=== PATIENT | female | born 1945 | race Caucasian/White ===

== ENCOUNTER 2016-11-03 07:58 | Outpatient (CLI) | payer MEDICARE, OTHER | END 2016-11-03 07:59 | disposition home or self-care (01) | DX: L23.2 Allergic contact dermatitis due to cosmetics (principal) ==

== ENCOUNTER 2017-01-12 11:10 | Outpatient (CLI) | payer MEDICARE, OTHER | END 2017-01-12 11:11 | disposition home or self-care (01) | DX: E11.9 Type 2 diabetes mellitus without complications (principal) ==

== ENCOUNTER 2017-02-27 13:15 | Outpatient (CLI) | payer MEDICARE, OTHER | END 2017-02-27 13:16 | disposition home or self-care (01) | LOC: DI 13:15 | PROVIDERS: ATTEND Internal Medicine | DX: I10 Essential (primary) hypertension (principal); R01.1 Cardiac murmur, unspecified; I35.0 Nonrheumatic aortic (valve) stenosis | CPT/HCPCS: 93306 ==

== ENCOUNTER 2017-03-30 15:02 | Emergency (ER) | payer MEDICARE, OTHER ==
[2017-03-30 15:11] VITALS: BP 153/67
--- NOTE | 2017-03-30 15:54 | XRAY Preliminary Report ---
Exam: XR Ankle 3 View LT IMPRESSION: 1. No evidence of ankle fracture or dislocation. 2. There is bony irregularity of the dorsal mid foot on lateral view. This is probably artifact secon shahriar to degenerative disease and/or overlapping bone. If there is focal tenderness at this location, CT could be used for further evaluation. [facility] SITE ID: [id number]
--- NOTE | 2017-03-30 15:56 | XRAY Report ---
EXAM: LEFT ANKLE RADIOGRAPHY EXAM DATE: 03/30/2017 03:38 PM. CLINICAL HISTORY: Injury, pain swelling. COMPARISON: None. TECHNIQUE: 3 views. FINDINGS: Bones: No fracture or focal bony lesion. Bony irregularity of the dorsum of the foot likely represen ts overlapping bone. Joints: No evidence of dislocation. Soft Tissues: No unexpected soft tissue findings. IMPRESSION: 1. No evidence of ankle fracture or dislocation. 2. There is bony irregularity of the dorsal mid foot on lateral view. This is probably artifact secon shahriar to degenerative disease and/or overlapping bone. If there is focal tenderness at this location, CT could be used for further evaluation. [facility] Referring Provider Line: [phone] SITE ID: [id number]
--- NOTE | 2017-03-30 16:07 | ED Physician Documentation ---
PD HPI LOWER EXT INJURY - Stated complaint Stated Complaint: LT LE PX - Chief complaint Chief Complaint: Ext Problem - History obtained from History obtained from: Patient - History of Present Illness PD HPI LOW EXT INJURY LOCATION: Left Type of injury: Fall Where injury occurred: Home Timing - onset: Today Timing - duration: Hours (2) Timing - details: Abrupt onset Improved by: Rest Worsened by: Moving, Palpating Associated symptoms: No: Weakness, Numbness, Tingling - Additional information Additional information: states stepped off a log and into a hole today. [place] a pop and developed ankle/ foot pain. Unable to bear weight and brought in for eval. Has not taken any medications. 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 : None HEENT: None Psych: None Musculoskeletal: Osteoarthritis Derm: Eczema - Past Surgical History Past Surgical History: Yes General: Appendectomy - Present Medications Home Medications: Ambulatory Orders Medication Instructions Recorded Confirmed Apremilast [Otezla] 30 mg ORAL BID 03/30/16 03/30/17 Aspirin [Aspir-Low] 81 mg ORAL DAILY 03/30/16 03/30/16 Hydrochlorothiazide 25 mg ORAL DAILY 03/30/16 03/30/17 Insulin Glargine,Hum.rec.anlog 25 units SUBQ QPM 03/30/16 03/30/17 [Lantus] Insulin Glargine,Hum.rec.anlog 28 units SUBQ DAILY 03/30/16 03/30/17 [Lantus] Insulin Lispro [Humalog] 0 units SUBQ TID 03/30/16 03/30/17 Lisinopril 20 mg ORAL BID 03/30/16 03/30/17 Omeprazole 40 mg ORAL BID 03/30/16 03/30/17 Oxybutynin [Ditropan] 5 mg ORAL DAILY 03/30/16 03/30/17 Rosuvastatin Calcium [Crestor] 1.5 mg ORAL DAILY 03/30/16 03/30/17 amLODIPine [Norvasc] 2.5 mg ORAL BID 03/30/16 03/30/17 - Allergies Allergies/Adverse Reactions: Allergies Allergy/AdvReac Type Severity Reaction Status Date / Time Latex, Natural Rubber Allergy Unknown Verified 03/30/17 15:11 nickel Allergy Rash Verified 03/30/17 15:55 Penicillins Allergy Hives Verified 03/30/16 17:21 - Social History Does the pt smoke?: No Smoking Status: Never smoker Does the pt drink ETOH?: Yes Does the pt have substance abuse?: No - Immunizations Immunizations are current?: Yes - POLST Patient has POLST: No PD ED PE NORMAL - Vitals Vital signs reviewed: Yes - General General: Alert and oriented X 3, No acute distress - Derm Derm: Warm and dry - Extremities Extremities: Other (L ankle - TTP B malleolus. Also tender over the dorsum of the foot. NVI. STS) - Neuro Neuro: Alert and oriented X 3 - Psych Psych: Normal mood, Normal affect Results - Vitals Vitals: Vital Signs - 24 hr 03/30/17 15:07 Temperature 36.6 C Heart Rate 76 Respiratory 20 Rate Blood Pressure 153/67 H O2 Saturation 97 Oxygen O2 Source Room air - Rads (name of study) L ankle xray Radiology: Prelim report reviewed, EMP read contemporaneously, See rad report ( No evidence of ankle fracture or dislocation. There is bony irregularity of the dorsal mid foot on lateral view. This is probably artifact secondary to degenerative disease and/or overlapping bone. If there is focal tenderness at this location, CT could be used for further evaluation. ) L foot xray Radiology: Prelim report reviewed, EMP read contemporaneously, See rad report ( No fracture identified. ) PD MEDICAL DECISION MAKING - ED course Complexity details: reviewed results, re-evaluated patient, considered differential, d/w patient, d/w family ED course: Patient is a 71-year-old female who presents to the emergency department with what appears to be a left ankle and foot sprain. Does have a slight irregularity on x-ray, but no tenderness at this point on exam. Placed in a walker boot for comfort. Will have her follow-up with her doctor for further evaluation and care. Pain well controlled. Patient counseled regarding signs and symptoms for which I believe and urgent re-evaluation would be necessary. Patient with good understanding of and agreement to plan and is comfortable going home at this time. Counseled regarding missed fractures secondary to acute swelling and may need repeat xrays if not improving. This document was made in part using voice recognition software. While efforts are made to proofread this document, sound alike and grammatical errors may occur. Departure - Departure Disposition: 01 Home, Self Care Clinical Impression: Sprain of foot, left Qualifiers: Encounter type: initial encounter Qualified Code(s): S93.602A - Unspecified sprain of left foot, initial encounter Sprained ankle Qualifiers: Encounter type: initial encounter Involved ligament of ankle: unspecified ligament Laterality: left Qualified Code(s): S93.402A - Sprain of unspecified ligament of left ankle, initial encounter Condition: Good Instructions: ED Sprain Foot, ED Sprain Ankle Follow-Up: Tino Hollis MD [Primary Care Provider] - Within 1 week Comments: Wear the boot as needed for comfort at home. Return if you worsen Discharge Date/Time: 03/30/17 17:30
[2017-03-30] MEDS ORDERED: IBUPROFEN 800 MG TABLET PO STA (16:17)
--- NOTE | 2017-03-30 17:08 | XRAY Preliminary Report ---
Exam: XR Foot 3 View LT IMPRESSION: No fracture identified. [facility] SITE ID: [id number]
--- NOTE | 2017-03-30 17:11 | XRAY Report ---
EXAM: LEFT FOOT RADIOGRAPHY EXAM DATE: 03/30/2017 04:37 PM. CLINICAL HISTORY: Foot pain s/p fall in hole today. COMPARISON: None. TECHNIQUE: 3 views. FINDINGS: Bones: Normal. No fractures or bone lesions. Joints: Normal. No subluxations. Soft Tissues: Diffuse soft tissue swelling. IMPRESSION: No fracture identified. [facility] Referring Provider Line: [phone] SITE ID: [id number]
== END 2017-03-30 17:30 | disposition home or self-care (01) ==
LOC: ED 15:02
DX: S93.602A Unspecified sprain of left foot, initial encounter (principal); S93.402A Sprain of unspecified ligament of left ankle, initial encounter; W17.2XXA Fall into hole, initial encounter; Y92.009 Unspecified place in unspecified non-institutional (private) residence as the place of occurrence of the external cause; I10 Essential (primary) hypertension; E11.8 Type 2 diabetes mellitus with unspecified complications; Z79.4 Long term (current) use of insulin; Z86.73 Personal history of transient ischemic attack (TIA), and cerebral infarction without residual deficits; Z79.82 Long term (current) use of aspirin
CPT/HCPCS: 99283

== ENCOUNTER 2017-03-31 10:23 | Outpatient (CLI) | payer MEDICARE, OTHER ==
[2017-03-31] MEDS ORDERED: NITROGLYCERIN SL 0.4 MG TABLET SL ONE (13:20)
[2017-03-31 16:15] VITALS: BP 164/70
--- NOTE | 2017-04-01 08:04 | CARDIAC PROCEDURE NOTE ---
DATE OF SERVICE: 03/31/2017 00:00:00 PROCEDURE: Lexiscan infusion for sestamibi myocardial imaging. INDICATIONS: A 71-year-old female with multiple cardiac risk factors and worrisome neck discomfort. PROCEDURE: The patient received Lexiscan and sestamibi per Nuclear Medicine protocol. Her pre-proce dure EKG was essentially unremarkable. With the infusion, she had a significant bump in her heart ra te from the mid 60s to the 110 range. She then developed gradual onset of neck tightness reminiscent of her presenting symptom. Associated with this were diffuse ST-segment changes, most prominently i n the inferolateral leads, but there were also some downsloping ST's in V4 and V5. The patient chuy nued to have a fair amount of discomfort. Eventually one sublingual nitroglycerin 0.4 was provided a nd within 2 or 3 minutes her symptoms resolved. She was hypertensive during most of this time, dropp ing her pressure only after the nitroglycerin. IMPRESSION: Worrisome symptoms and EKG at the time of Lexiscan infusion. See Nuclear Medicine repor t for details. JOB #: [id number] EXT JOB #:[id number]
--- NOTE | 2017-04-01 15:16 | Nuclear Medicine Report ---
EXAM: SINGLE-ISOTOPE PHARMACOLOGICAL STRESS TEST WITH REGADENOSON. SINGLE-ISOTOPE AND TWO-DAY REST/STRESS M YOCARDIAL PERFUSION SCANS WITH TOMOGRAPHIC IMAGING, QUANTITATIVE ANALYSIS, WALL MOTION ANALYSIS AND C ALCULATION OF EJECTION FRACTION. EXAM DATE: 03/31/2017 11:47 AM. CLINICAL HISTORY: Neck pain. COMPARISON: None. TECHNIQUE: A pharmacological stress was performed with the infusion of 0.4 mg regadenoson per protocol. Accordin g to protocol, 10.7 mCi of Tc-99m sestamibi was injected for stress myocardial perfusion scan. Motion correction was applied when appropriate. The following day after the intravenous administration of 43.8 mCi of Tc-99m sestamibi, a rest myocar dial perfusion scan was done with tomography. Motion correction was applied when appropriate. Gated tomographic images were obtained for wall motion analysis and computation of left ventricular e jection fraction. FINDINGS: Patient experienced neck tightness and chest pain with ST segment changes. Patient received nitroglyc minerva which resolved the symptoms. Stress perfusion images demonstrate normal distribution of radiotracer activity without fixed or reve rsible ischemia. No other convincing perfusion abnormalities. No convincing evidence of transient ischemic dilatation. Wall motion analysis demonstrates normal motion. The left ventricular end-diastolic volume is 88 cc. The left ventricular end-systolic volume is 30 cc . The left ventricular ejection fraction is calculated to be 65%. IMPRESSION: 1. No scintigraphic findings to indicate myocardial ischemia. Negative for infarct. 2. Left ventricular ejection fraction of 65%. 3. Normal segmental and global wall motion. 4. Normal left ventricular cavity size, no change with stress. [facility] Referring Provider Line: [phone] SITE ID: [id number]
== END 2017-03-31 10:24 | disposition home or self-care (01) ==
LOC: DI 10:23
PROVIDERS: ATTEND Internal Medicine
DX: M54.2 Cervicalgia (principal); R07.9 Chest pain, unspecified
CPT/HCPCS: 78452; 93017; A9270; A9500

== ENCOUNTER 2017-04-09 14:01 | Outpatient (CLI) | payer MEDICARE, OTHER ==
--- NOTE | 2017-04-09 16:54 | MRI Report ---
EXAM: LEFT FOOT MRI WITHOUT CONTRAST EXAM DATE: 04/09/2017 03:33 PM. CLINICAL HISTORY: Left foot pain and edema. Previous injury after stepping into a hole 10 days ago. COMPARISON: Left foot radiography from 03/30/2017. TECHNIQUE: Multiplanar, multisequence T1-weighted and fluid-sensitive sequences of the foot without c ontrast. Other: None. FINDINGS: Bones and articular cartilage: Metallic magnetic susceptibility artifacts are present within the cent ral to posterior aspect of the calcaneus. No macroscopic metallic fragments are seen on the correspon ding radiographs. Small plantar calcaneal enthesophyte. Small osteophytes at the dorsal aspect of the talonavicular joint. Slight bony hypertrophic changes at the anterior process of the calcaneus. Ther e is a nondisplaced acute or subacute appearing fracture of the anterolateral aspect of the distal ti bial plafond. This is at the attachment site of the anterior tibiofibular ligament. There is a acute or subacute nondisplaced intra-articular fracture at the dorsal distal aspect of the medial cuneiform bone. There is also a nondisplaced fracture of the plantar aspect of the medial cuneiform. There is a bone contusion at the plantar lateral aspect of the first metatarsal base. Mild first metatarsal ph alangeal joint osteoarthritis. No dislocation. Ligaments: The visualized intertarsal, intermetatarsal, and tarsometatarsal ligaments are intact. Thi s includes the Lisfranc ligament. The visualized collateral ligaments are intact. The tibiofibular, t alofibular, calcaneofibular, deltoid, and spring ligaments are intact. Tendons: The extensor, flexor, peroneal, and Achilles tendons are intact. Musculature: Mild edema within the muscles adjacent to the medial cuneiform fracture. Other: No effusions. The visualized portion of the tarsal tunnel is unremarkable. Mild first and thir d intermetatarsal bursitis. Subcutaneous edema and mild swelling at the dorsal and plantar medial asp ects of the foot. IMPRESSION: 1. Nondisplaced acute or subacute fractures at the anterolateral aspect of the distal tibial plafond, dorsal distal aspect of the medial cuneiform, and plantar distal aspect of the medial cuneiform. Bon e contusion at the plantar lateral aspect of the first metatarsal base. 2. Mild edema within the muscles adjacent to the medial cuneiform fractures with minimal represent st rain or contusion. 3. No joint dislocation. 4. No evidence of ligament injury. 5. Subcutaneous edema and mild swelling at the dorsal and plantar medial aspects of the foot. [facility] MUSCULOSKELETAL RADIOLOGY SECTION Referring Provider Line: [phone] SITE ID: [id number]
== END 2017-04-09 14:02 | disposition home or self-care (01) ==
LOC: DI 14:01
PROVIDERS: ATTEND Podiatrist
DX: S82.875A Nondisplaced pilon fracture of left tibia, initial encounter for closed fracture (principal); S92.245A Nondisplaced fracture of medial cuneiform of left foot, initial encounter for closed fracture; R60.0 Localized edema

== ENCOUNTER 2017-05-21 11:36 | Outpatient (CLI) | payer MEDICARE, OTHER ==
--- NOTE | 2017-05-21 17:01 | XRAY Report ---
THREE-VIEW LEFT FOOT: 05/21/2017 CLINICAL INDICATION: Fracture followup. COMPARISON: MRI 04/09/2017, plain film 03/30/2017. FINDINGS: AP, lateral, oblique, views of the left foot demonstrate mild sclerosis in the medial cune iform, at the sites of fracture identified on MRI. No displacement is seen. Osteoarthritis is noted . Plantar calcaneal spurring is present. IMPRESSION: SCLEROSIS IN THE DISTAL MEDIAL CUNEIFORM, AT THE SITES OF FRACTURE INDICATED ON MRI. NO SIGNIFICANT DISPLACEMENT. JOB #: [id number] EXT JOB #:[id number]
--- NOTE | 2017-05-21 17:22 | XRAY Report ---
THREE-VIEW LEFT ANKLE: 05/21/2017 CLINICAL INDICATION: Followup fractures. COMPARISON: MRI 04/09/2017, plain film 03/30/2017. FINDINGS: AP, lateral, oblique views of the left ankle demonstrate faint sclerosis in the lateral di stal tibia and the distal shaft of the fibula, compatible with nondisplaced fractures with healing. Plantar and posterior calcaneal spurring is present. No new fracture is seen. IMPRESSION: HEALING NONDISPLACED ANKLE FRACTURES. JOB #: [id number] EXT JOB #:[id number]
== END 2017-05-21 11:37 | disposition home or self-care (01) ==
LOC: DI 11:36
PROVIDERS: ATTEND Podiatrist
DX: S82.892D Other fracture of left lower leg, subsequent encounter for closed fracture with routine healing (principal)

== ENCOUNTER 2017-09-15 08:00 | Outpatient (CLI) | payer MEDICARE, OTHER ==
[2017-09-15 20:20] LABS: PT - PROTHROMBIN TIME 48.8 secs (9.9-12.6)
[2017-09-15 20:56] LABS: INR 4.6 (0.8-1.2)
== END 2017-09-15 08:01 | disposition home or self-care (01) ==
LOC: LAB.R 08:00 → LAB.F 08:01
PROVIDERS: ATTEND Internal Medicine
DX: Z79.01 Long term (current) use of anticoagulants (principal)
CPT/HCPCS: 36415; 85610

== ENCOUNTER 2017-10-06 10:35 | Outpatient (CLI) | payer MEDICARE, OTHER ==
[2017-10-06 17:39] LABS: PT - PROTHROMBIN TIME 48.6 secs (9.9-12.6)
[2017-10-06 18:24] LABS: INR 4.6 (0.8-1.2)
== END 2017-10-06 10:36 | disposition home or self-care (01) ==
LOC: LAB.R 10:35
PROVIDERS: ATTEND Internal Medicine
DX: R79.1 Abnormal coagulation profile (principal)
CPT/HCPCS: 85610

== ENCOUNTER 2017-10-27 08:44 | Outpatient (CLI) | payer MEDICARE, OTHER | END 2017-10-27 08:45 | disposition home or self-care (01) | LOC: LAB.F 08:44 | PROVIDERS: ATTEND Internal Medicine | DX: I48.91 Unspecified atrial fibrillation (principal) | CPT/HCPCS: 85610 ==

== ENCOUNTER 2017-10-29 13:07 | Outpatient (CLI) | payer MEDICARE, OTHER | END 2017-10-29 13:08 | disposition home or self-care (01) | LOC: NS 13:07 | PROVIDERS: ATTEND Internal Medicine | DX: Z71.3 Dietary counseling and surveillance (principal); E11.8 Type 2 diabetes mellitus with unspecified complications; Z79.4 Long term (current) use of insulin; Z68.37 Body mass index [BMI] 37.0-37.9, adult | CPT/HCPCS: 97802 ==

== ENCOUNTER 2017-11-10 11:01 | Outpatient (CLI) | payer MEDICARE, OTHER | END 2017-11-10 11:02 | disposition home or self-care (01) | LOC: NS 11:01 | PROVIDERS: ATTEND Internal Medicine | DX: Z71.3 Dietary counseling and surveillance (principal); E11.8 Type 2 diabetes mellitus with unspecified complications; Z79.4 Long term (current) use of insulin; Z68.37 Body mass index [BMI] 37.0-37.9, adult; I48.91 Unspecified atrial fibrillation | CPT/HCPCS: 85610; 97803 ==

== ENCOUNTER 2017-11-10 12:39 | Outpatient (CLI) | payer MEDICARE, OTHER | END 2017-11-10 12:40 | disposition home or self-care (01) | LOC: LAB.F 12:39 | PROVIDERS: ATTEND Internal Medicine | DX: I48.91 Unspecified atrial fibrillation (principal) | CPT/HCPCS: 85610 ==

== ENCOUNTER 2017-11-24 09:54 | Outpatient (CLI) | payer MEDICARE, OTHER | END 2017-11-24 09:55 | disposition home or self-care (01) | LOC: LAB.F 09:54 | PROVIDERS: ATTEND Internal Medicine | DX: I48.91 Unspecified atrial fibrillation (principal) | CPT/HCPCS: 85610 ==

== ENCOUNTER 2017-12-08 09:06 | Outpatient (CLI) | payer MEDICARE, OTHER ==
[2017-12-08 17:17] LABS: BASOPHILS # (AUTO) 0.1 10^3/uL (0.0-0.1); BASOPHILS % (AUTO) 1.1 %; EOSINOPHILS # (AUTO) 0.2 10^3/uL (0.0-0.7); EOSINOPHILS % (AUTO) 1.8 %; HGB - HEMOGLOBIN 11.4 g/dL (12.0-16.0); LYMPHOCYTES # (AUTO) 1.3 10^3/uL (1.5-3.5); LYMPHOCYTES % (AUTO) 15.4 %; MEAN CORPUSCULAR HEMOGLOBIN 27.8 pg (27.0-31.0); MEAN CORPUSCULAR HGB CONC 32.1 g/dL (32.0-36.0); MEAN CORPUSCULAR VOLUME 86.5 fL (81.0-99.0); MEAN PLATELET VOLUME 9.3 fL (7.9-10.8); MONOCYTES # (AUTO) 0.7 10^3/uL (0.0-1.0); MONOCYTES % (AUTO) 8.2 %; NEUTROPHILS # (AUTO) 6.3 10^3/uL (1.5-6.6); NEUTROPHILS % (AUTO) 73.5 %; PLT - PLATELET COUNT 365 10^3/uL (130-450); RED BLOOD COUNT 4.09 10^6/uL (4.20-5.40); RED CELL DISTRIBUTION WIDTH 15.9 % (12.0-15.0); WHITE BLOOD COUNT 8.5 x10^3/uL (4.8-10.8)
[2017-12-08 17:30] LABS: PT - PROTHROMBIN TIME 22.3 secs (9.9-12.6)
[2017-12-08 17:35] LABS: ALBUMIN 3.7 g/dL (3.2-5.5); ALBUMIN/GLOBULIN RATIO 0.9 (1.0-2.2); BILIRUBIN,TOTAL 0.9 mg/dL (0.2-1.0); CALCIUM 9.6 mg/dL (8.5-10.3); CREATININE 1.2 mg/dL (0.4-1.0); TOTAL PROTEIN 7.6 g/dL (6.7-8.2)
[2017-12-08 18:00] LABS: HB2 TOTAL 12.3 g/dL; HEMOGLOBIN A1C 0.84 g/dL; HEMOGLOBIN A1C % 8.4 % (4.6-6.2)
== END 2017-12-08 09:07 | disposition home or self-care (01) ==
LOC: LAB.F 09:06
PROVIDERS: ATTEND Internal Medicine
DX: I48.91 Unspecified atrial fibrillation (principal); E11.9 Type 2 diabetes mellitus without complications
CPT/HCPCS: 36415; 80053; 83036; 85025; 85610

== ENCOUNTER 2017-12-11 12:20 | Outpatient (CLI) | payer MEDICARE, OTHER ==
--- NOTE | 2017-12-11 13:33 | XRAY Report ---
TWO VIEW CHEST: 12/11/2017 CLINICAL INDICATION: Cough, shortness of breath. COMPARISON: 03/23/2011. FINDINGS: Frontal and lateral views of the chest demonstrate a normal cardiac silhouette. A left subclavian dual chamber pacemaker is in place, new from previous. There is a moderate left and trace right effusion present, with associated basilar airspace disease. No pneumothorax. IMPRESSION: MODERATE LEFT AND TRACE RIGHT PLEURAL EFFUSIONS. NEW PACEMAKER. TD: 12/11/2017 13:32
== END 2017-12-11 12:21 | disposition home or self-care (01) ==
LOC: DI 12:20
PROVIDERS: ATTEND Internal Medicine
DX: J90 Pleural effusion, not elsewhere classified (principal); I50.9 Heart failure, unspecified; I35.0 Nonrheumatic aortic (valve) stenosis; Z95.0 Presence of cardiac pacemaker
CPT/HCPCS: 36415; 71046; 83880

== ENCOUNTER 2017-12-22 10:20 | Outpatient (CLI) | payer MEDICARE, OTHER | END 2017-12-22 10:21 | disposition home or self-care (01) | LOC: LAB.F 10:20 | PROVIDERS: ATTEND Internal Medicine | DX: I48.91 Unspecified atrial fibrillation (principal) | CPT/HCPCS: 85610 ==

== ENCOUNTER 2018-01-08 09:30 | Outpatient (CLI) | payer MEDICARE, OTHER ==
--- NOTE | 2018-01-08 19:41 | XRAY Report ---
MULTIPLE VIEW CHEST: 01/08/2018 CLINICAL INDICATION: Pleural effusion. TECHNIQUE: As requested, frontal, lateral, and left lateral decubitus views of the chest were obtained. COMPARISON: 12/11/2017 FINDINGS: The cardiac silhouette remains within normal limits. Left subclavian pacemaker is in stable position. Right effusion has resolved. The moderate left effusion appears unchanged. On the lateral decubitus image, the majority of the effusion is not freely layering. No pneumothorax is seen. IMPRESSION 1. STABLE APPEARANCE OF LEFT EFFUSION AND BASILAR AIRSPACE DISEASE. THE MAJORITY OF THE LEFT PLEURAL EFFUSION IS NOT FREELY LAYERING ON THE DECUBITUS VIEW. 2. RESOLUTION OF PREVIOUSLY NOTED SMALL RIGHT EFFUSION. TD: 01/08/2018 19:40
== END 2018-01-08 09:31 | disposition home or self-care (01) ==
LOC: DI 09:30
PROVIDERS: ATTEND Internal Medicine
DX: J90 Pleural effusion, not elsewhere classified (principal); Z95.0 Presence of cardiac pacemaker
CPT/HCPCS: 71046

== ENCOUNTER 2018-01-11 11:09 | Outpatient (CLI) | payer MEDICARE, OTHER | END 2018-01-11 11:10 | disposition home or self-care (01) | LOC: LAB.F 11:09 | PROVIDERS: ATTEND Internal Medicine | DX: I48.91 Unspecified atrial fibrillation (principal) | CPT/HCPCS: 85610 ==

== ENCOUNTER 2018-01-19 07:46 | Outpatient (CLI) | payer MEDICARE, OTHER | END 2018-01-19 07:47 | disposition home or self-care (01) | LOC: LAB.F 07:46 | PROVIDERS: ATTEND Internal Medicine | DX: I48.91 Unspecified atrial fibrillation (principal) | CPT/HCPCS: 85610 ==

== ENCOUNTER 2018-01-21 11:39 | Outpatient (CLI) | payer MEDICARE, OTHER ==
[2018-01-21 12:05] LABS: CALCIUM 9.4 mg/dL (8.5-10.3); CREATININE 1.1 mg/dL (0.4-1.0)
== END 2018-01-21 11:40 | disposition home or self-care (01) ==
LOC: LAB 11:39
PROVIDERS: ATTEND Internal Medicine Cardiovascular Disease
DX: Z79.899 Other long term (current) drug therapy (principal)
CPT/HCPCS: 36415; 80048

== ENCOUNTER 2018-02-02 08:50 | Outpatient (CLI) | payer MEDICARE, OTHER ==
[2018-02-02] MEDS ORDERED: BUFFERED LIDOCAINE 10 ML SYRINGE IU ONE (09:56)
[2018-02-02 10:52] VITALS: BP 157/56
[2018-02-02 10:54] LABS: CC,BF RBC 481950 /mm^3
--- NOTE | 2018-02-02 11:19 | XRAY Report ---
INSPIRATORY AND EXPIRATORY VIEWS OF THE CHEST: 02/02/2018 CLINICAL INDICATION: Status post left ultrasound-guided thoracentesis. COMPARISON: 01/08/2018. FINDINGS: Frontal inspiratory and expiratory views of the chest demonstrate no evidence of postprocedure pneumothorax. Left pleural effusion has decreased significantly. Pacemaker is stable. The right lung remains clear. IMPRESSION: NO EVIDENCE OF POSTPROCEDURE PNEUMOTHORAX. TD: 02/02/2018 10:59
--- NOTE | 2018-02-02 11:20 | Ultrasound Report ---
ULTRASOUND-GUIDED LEFT THORACENTESIS: 02/02/2018 CLINICAL INDICATION: Pleural effusion. TECHNIQUE/FINDINGS: Following obtaining informed consent, a suitable site in the patient's left posterior thorax was selected with ultrasound. The skin was prepped and draped in the usual sterile fashion. The skin and soft tissues were anesthetized with lidocaine. A Leqc-R-Nbviftme catheter was inserted into the left pleural space, and approximately 1150 mL of bloody fluid was removed. The patient tolerated the procedure well. No immediate complications. Fluid was submitted to the lab for further evaluation. IMPRESSION: SUCCESSFUL ULTRASOUND-GUIDED LEFT THORACENTESIS, YIELDING APPROXIMATELY 1150 ML OF FLUID. TD: 02/02/2018 11:00
[2018-02-02 11:28] LABS: BF COLOR BLOODY; BF SOURCE PLEURAL; LYMPHOCYTES %,BODY FLUID 90; MACROPHAGES %,BODY FLUID 3 %; MONOCYTES %,BODY FLUID 2 %
== END 2018-02-02 08:51 | disposition home or self-care (01) ==
LOC: DI 08:50
PROVIDERS: ATTEND Internal Medicine
DX: J90 Pleural effusion, not elsewhere classified (principal)
CPT/HCPCS: 32555; 71046; 81599; 82945; 83615; 84157; 87070; 87205; 88108; 88305; 89051

== ENCOUNTER 2018-02-09 08:38 | Outpatient (CLI) | payer MEDICARE, OTHER | END 2018-02-09 08:39 | disposition home or self-care (01) | LOC: LAB.F 08:38 | PROVIDERS: ATTEND Internal Medicine | DX: I48.91 Unspecified atrial fibrillation (principal) | CPT/HCPCS: 85610 ==

== ENCOUNTER 2018-02-16 08:03 | Outpatient (CLI) | payer MEDICARE, OTHER ==
[2018-02-16 11:26] LABS: HB2 TOTAL 12.3 g/dL; HEMOGLOBIN A1C 0.77 g/dL; HEMOGLOBIN A1C % 7.9 % (4.6-6.2)
== END 2018-02-16 08:04 | disposition home or self-care (01) ==
LOC: LAB.F 08:03
PROVIDERS: ATTEND Internal Medicine
DX: E11.9 Type 2 diabetes mellitus without complications (principal); I48.91 Unspecified atrial fibrillation
CPT/HCPCS: 36415; 83036; 85610

== ENCOUNTER 2018-03-09 09:31 | Outpatient (CLI) | payer MEDICARE, OTHER | END 2018-03-09 09:32 | disposition home or self-care (01) | LOC: LAB.F 09:31 | PROVIDERS: ATTEND Internal Medicine | DX: I48.91 Unspecified atrial fibrillation (principal) | CPT/HCPCS: 85610 ==

== ENCOUNTER 2018-03-29 11:57 | Outpatient (CLI) | payer MEDICARE, OTHER | END 2018-03-29 11:58 | disposition home or self-care (01) | LOC: LAB 11:57 | PROVIDERS: ATTEND Internal Medicine | DX: I48.91 Unspecified atrial fibrillation (principal) | CPT/HCPCS: 85610 ==

== ENCOUNTER 2018-05-11 15:58 | Outpatient (CLI) | payer MEDICARE, OTHER ==
--- NOTE | 2018-05-11 17:28 | XRAY Report ---
Procedure Date: 05/11/2018 Accession Number: [id number] / [id number] Procedure: XR - Chest 2 View X-Ray CPT Code: 12006 FULL RESULT: EXAM: CHEST RADIOGRAPHY. EXAM DATE: 05/11/2018 05:06 PM. CLINICAL HISTORY: Coronary artery bypass graft post. COMPARISON: 02/02/2018. TECHNIQUE: 2 views. FINDINGS: Lungs/Pleura: Mild blunting of the left costophrenic angle. No pneumothorax. Mediastinum: No cardiac enlargement. Dual-lead cardiac device is present. Atheromatous plaques are noted in the thoracic aorta. Other: None. IMPRESSION: 1. Dual-lead cardiac device with atheromatous disease. 2. Decreased size of the now small left pleural effusion. No pneumothorax. No acute pulmonary process. [facility] ADDENDUM: 05/12/18 14:04 hrs. Comment: No sternal fracture identified. Patient is osteopenic. If the symptoms remain clinically concerning, recommend CT evaluation.
== END 2018-05-11 15:59 | disposition home or self-care (01) ==
LOC: DI 15:58
PROVIDERS: ATTEND Physician Assistant Medical
DX: J90 Pleural effusion, not elsewhere classified (principal); R07.81 Pleurodynia; Z95.1 Presence of aortocoronary bypass graft
CPT/HCPCS: 71046

== ENCOUNTER 2018-05-12 09:44 | Outpatient (CLI) | payer MEDICARE, OTHER ==
[2018-05-12 17:24] LABS: BASOPHILS # (AUTO) 0.1 10^3/uL (0.0-0.1); BASOPHILS % (AUTO) 0.9 %; EOSINOPHILS # (AUTO) 0.1 10^3/uL (0.0-0.7); EOSINOPHILS % (AUTO) 1.5 %; HGB - HEMOGLOBIN 11.6 g/dL (12.0-16.0); LYMPHOCYTES # (AUTO) 1.2 10^3/uL (1.5-3.5); LYMPHOCYTES % (AUTO) 17.1 %; MEAN CORPUSCULAR HEMOGLOBIN 29.9 pg (27.0-31.0); MEAN CORPUSCULAR VOLUME 90.6 fL (81.0-99.0); MEAN PLATELET VOLUME 9.6 fL (7.9-10.8); MONOCYTES # (AUTO) 0.7 10^3/uL (0.0-1.0); MONOCYTES % (AUTO) 10.3 %; NEUTROPHILS # (AUTO) 4.9 10^3/uL (1.5-6.6); NEUTROPHILS % (AUTO) 70.2 %; PLT - PLATELET COUNT 277 10^3/uL (130-450); RED BLOOD COUNT 3.87 10^6/uL (4.20-5.40); RED CELL DISTRIBUTION WIDTH 14.5 % (12.0-15.0)
[2018-05-12 18:09] LABS: ALBUMIN 3.6 g/dL (3.2-5.5); ALBUMIN/GLOBULIN RATIO 1.1 (1.0-2.2); ALKALINE PHOSPHATASE 73 IU/L (42-121); ALT ALANINE AMINOTRANSFERASE 19 IU/L (10-60); AST ASPARTATE AMINOTRANSFERASE 20 IU/L (10-42); BILIRUBIN,TOTAL 0.9 mg/dL (0.2-1.0); BUN - BLOOD UREA NITROGEN 26 mg/dL (6-20); CALCIUM 9.1 mg/dL (8.5-10.3); CARBON DIOXIDE - CO2 27 mmol/L (21-32); CHLORIDE 98 mmol/L (101-111); CREATININE 1.2 mg/dL (0.4-1.0); GFR - MDRD 44 (>89); GLUCOSE 254 mg/dL (70-100); SODIUM 135 mmol/L (135-145); TOTAL PROTEIN 6.9 g/dL (6.7-8.2)
[2018-05-12 18:11] LABS: CRP - C-REACTIVE PROTEIN < 1.0 mg/dL (0-1.0)
== END 2018-05-12 09:45 | disposition home or self-care (01) ==
LOC: LAB.F 09:44
PROVIDERS: ATTEND Physician Assistant Medical
DX: R60.0 Localized edema (principal); Z95.5 Presence of coronary angioplasty implant and graft
CPT/HCPCS: 36415; 80053; 85025; 85651; 86140

== ENCOUNTER 2018-05-12 15:22 | Outpatient (CLI) | payer MEDICARE, OTHER ==
--- NOTE | 2018-05-12 17:11 | CT Report ---
Procedure Date: 05/12/2018 Accession Number: [id number] / [id number] Procedure: CT - Chest W/O CPT Code: FULL RESULT: EXAM: CT CHEST EXAM DATE: 05/12/2018 03:35 PM. CLINICAL HISTORY: EDEMA,LOCALIZED, NOS,CABG POST. Clicking sensation midline inferior sternum COMPARISONS: None. TECHNIQUE: Routine helical CT imaging was performed through the chest. IV contrast: None. Reconstructions: Coronal and sagittal. In accordance with CT protocol optimization, one or more of the following dose reduction techniques were utilized for this exam: automated exposure control, adjustment of mA and/or KV based on patient size, or use of iterative reconstructive technique. FINDINGS: Lungs/Pleura: No nodules, bronchial thickening, consolidation, or edema. Pulmonary vasculature is normal. No pericardial effusion. Small amount left pleural thickening/effusion; no right pleural effusion. No pneumothorax. Mediastinum: Post CABG changes. Left subclavian transvenous pacemaker. No adenopathy or masses. The aorta is normal in size. Bones and soft tissues: Status post sternotomy; no sternal wires are seen. There is a slight separation of the sternal halves, transverse measuring maximally approximately 5 mm and with posterior displacement on the left half by approximately 4.5 mm. Immediately anterior to the xiphoid process slightly to the left of midline there is a 4 mm clip in the subcutaneous fat, series 3 image 40. No subcutaneous fluid collection is seen. There is a small amount of fat scarring extending from the xiphoid process to the skin surface. Included upper Abdomen: Status post cholecystectomy. Small left kidney. Other: Enlarged right thyroid lobe containing coarse calcification and possible 1.7 cm nodule series 3 image 7. IMPRESSION: 1. Status post sternotomy and CABG. No sternal wires or abnormal subcutaneous fluid collection seen. There is one 4 mm surgical clip immediately anterior to the xiphoid process Which could potentially explain the clinically apparent "click" with motion. 2. Residual small amount left pleural thickening/scarring/fluid. 3. Abnormal right lobe of the thyroid. Suggest correlation with ultrasound. 4. Other incidental findings as above. Results called to Kasey TORRES 05/12/2018 at 17:08
== END 2018-05-12 15:23 | disposition home or self-care (01) ==
LOC: DI 15:22
PROVIDERS: ATTEND Physician Assistant Medical
DX: R07.89 Other chest pain (principal); R60.0 Localized edema; Z95.5 Presence of coronary angioplasty implant and graft
CPT/HCPCS: 36415; 71250; 80053; 85025; 85651; 86140

== ENCOUNTER 2018-05-18 15:05 | Outpatient (CLI) | payer MEDICARE, OTHER ==
--- NOTE | 2018-05-19 05:10 | Ultrasound Report ---
Reason: THYROID NODULE, ABNORMAL CHEST CT SCAN Procedure Date: 05/18/2018 Accession Number: [id number] / [id number] Procedure: US - Head or Neck Soft Tissue CPT Code: FULL RESULT: EXAM: THYROID ULTRASOUND EXAM DATE: 05/18/2018 04:14 PM. CLINICAL HISTORY: Possible thyroid nodule on chest CT COMPARISON: Chest CT 05/12/2018. TECHNIQUE: Real time sonographic imaging of the thyroid was performed by the casting machine adjuster. Multiple hospital sales representative static images were saved for review. FINDINGS: THYROID GLAND: Right Lobe: 4.6 x 2.1 x 1.9 cm, volume 10 cc. Normal background echotexture. Right Lobe Nodules: Hypoechoic 1.5 x 1.0 x 0.7 cm nodule in the midportion; hypoechoic 0.9 x 0.7 x 1.0 cm nodule just inferior to the larger. Left Lobe: 3.4 x 1.7 x 1.3 cm, volume 3 cc. Normal background echotexture. Left Lobe Nodules: Hypoechoic 1.1 x 1.0 x 0.9 nodule in the lower pole. Isthmus: 0.3 cm AP. Isthmic Nodules: None. LYMPH NODES: No adenopathy demonstrated in the central or lateral compartment. OTHER: None. IMPRESSION: Small hypoechoic nodules. No fine-needle aspiration is recommended by CT criteria. Management recommendations are based on 2015 [place] [employer] Management Guidelines for Adult Patients with Thyroid Nodules and Differentiated Thyroid Cancer. [facility]
== END 2018-05-18 15:06 | disposition home or self-care (01) ==
LOC: DI 15:05
PROVIDERS: ATTEND Physician Assistant Medical
DX: E04.2 Nontoxic multinodular goiter (principal)
CPT/HCPCS: 76536

== ENCOUNTER 2018-09-03 07:53 | Outpatient (CLI) | payer MEDICARE, OTHER ==
[2018-09-03 11:39] LABS: HB2 TOTAL 12.7 g/dL; HEMOGLOBIN A1C 0.98 g/dL; HEMOGLOBIN A1C % 9.2 % (4.6-6.2)
== END 2018-09-03 07:54 | disposition home or self-care (01) ==
LOC: LAB.F 07:53
PROVIDERS: ATTEND Internal Medicine
DX: I48.91 Unspecified atrial fibrillation (principal); E11.9 Type 2 diabetes mellitus without complications
CPT/HCPCS: 36415; 83036; 85610

== ENCOUNTER 2018-10-27 10:04 | Outpatient (CLI) | payer MEDICARE, OTHER | END 2018-10-27 10:05 | disposition home or self-care (01) | LOC: LAB.F 10:04 | PROVIDERS: ATTEND Internal Medicine | DX: I48.91 Unspecified atrial fibrillation (principal) | CPT/HCPCS: 85610 ==

== ENCOUNTER 2018-11-11 11:30 | Outpatient (CLI) | payer MEDICARE, OTHER | END 2018-11-11 11:31 | disposition home or self-care (01) | LOC: LAB.F 11:30 | PROVIDERS: ATTEND Internal Medicine | DX: I48.91 Unspecified atrial fibrillation (principal) | CPT/HCPCS: 85610 ==

== ENCOUNTER 2018-12-23 10:24 | Outpatient (CLI) | payer MEDICARE, OTHER | END 2018-12-23 10:25 | disposition home or self-care (01) | LOC: LAB.F 10:24 | PROVIDERS: ATTEND Registered Nurse | DX: Z51.81 Encounter for therapeutic drug level monitoring (principal); Z79.01 Long term (current) use of anticoagulants | CPT/HCPCS: 85610 ==

== ENCOUNTER 2019-01-11 14:22 | Outpatient (CLI) | payer MEDICARE, OTHER | END 2019-01-11 14:23 | disposition home or self-care (01) | LOC: LAB.F 14:22 | PROVIDERS: ATTEND Registered Nurse | DX: Z79.01 Long term (current) use of anticoagulants (principal) | CPT/HCPCS: 85610 ==

== ENCOUNTER 2019-01-18 10:48 | Outpatient (CLI) | payer MEDICARE, OTHER | END 2019-01-18 10:49 | disposition home or self-care (01) | LOC: LAB.F 10:48 | PROVIDERS: ATTEND Registered Nurse | DX: Z79.01 Long term (current) use of anticoagulants (principal) | CPT/HCPCS: 85610 ==

== ENCOUNTER 2019-02-08 14:33 | Outpatient (CLI) | payer MEDICARE, OTHER | END 2019-02-08 14:34 | disposition home or self-care (01) | LOC: LAB.F 14:33 | PROVIDERS: ATTEND Registered Nurse | DX: Z51.81 Encounter for therapeutic drug level monitoring (principal); Z79.01 Long term (current) use of anticoagulants | CPT/HCPCS: 85610 ==

== ENCOUNTER 2019-03-03 10:35 | Outpatient (CLI) | payer MEDICARE, OTHER | END 2019-03-03 10:36 | disposition home or self-care (01) | LOC: LAB.F 10:35 | PROVIDERS: ATTEND Registered Nurse | DX: Z79.01 Long term (current) use of anticoagulants (principal) | CPT/HCPCS: 85610 ==

== ENCOUNTER 2019-03-07 13:01 | Outpatient (CLI) | payer MEDICARE, OTHER | END 2019-03-07 13:02 | disposition home or self-care (01) | LOC: LAB.F 13:01 | PROVIDERS: ATTEND Registered Nurse | DX: Z51.81 Encounter for therapeutic drug level monitoring (principal); Z79.01 Long term (current) use of anticoagulants | CPT/HCPCS: 85610 ==

== ENCOUNTER 2019-03-17 15:55 | Outpatient (CLI) | payer MEDICARE, OTHER | END 2019-03-17 16:30 | disposition home or self-care (01) | LOC: LAB.F 15:55 | PROVIDERS: ATTEND Registered Nurse | DX: Z79.01 Long term (current) use of anticoagulants (principal) | CPT/HCPCS: 85610 ==

== ENCOUNTER 2019-03-21 09:25 | Outpatient (CLI) | payer MEDICARE, OTHER | END 2019-03-21 09:26 | disposition home or self-care (01) | LOC: LAB.S 09:25 | PROVIDERS: ATTEND Registered Nurse | DX: Z79.01 Long term (current) use of anticoagulants (principal) | CPT/HCPCS: 85610 ==

== ENCOUNTER 2019-03-28 14:13 | Outpatient (CLI) | payer MEDICARE, OTHER | END 2019-03-28 14:14 | disposition home or self-care (01) | LOC: LAB.S 14:13 | PROVIDERS: ATTEND Registered Nurse | DX: Z79.01 Long term (current) use of anticoagulants (principal) | CPT/HCPCS: 85610 ==

== ENCOUNTER 2019-04-18 11:57 | Outpatient (CLI) | payer MEDICARE, OTHER | END 2019-04-18 11:58 | disposition home or self-care (01) | LOC: LAB.S 11:57 | PROVIDERS: ATTEND Registered Nurse | DX: Z79.01 Long term (current) use of anticoagulants (principal) | CPT/HCPCS: 85610 ==

== ENCOUNTER 2019-05-26 14:41 | Outpatient (CLI) | payer MEDICARE, OTHER | END 2019-05-26 14:42 | disposition home or self-care (01) | LOC: LAB.S 14:41 | PROVIDERS: ATTEND Registered Nurse | DX: Z79.01 Long term (current) use of anticoagulants (principal) | CPT/HCPCS: 85610 ==

== ENCOUNTER 2019-06-10 14:20 | Outpatient (CLI) | payer MEDICARE, OTHER | END 2019-06-10 14:21 | disposition home or self-care (01) | LOC: LAB.S 14:20 | PROVIDERS: ATTEND Registered Nurse | DX: Z79.01 Long term (current) use of anticoagulants (principal) | CPT/HCPCS: 85610 ==

== ENCOUNTER 2019-06-28 14:48 | Outpatient (CLI) | payer MEDICARE, OTHER | END 2019-06-28 14:49 | disposition home or self-care (01) | LOC: LAB.S 14:48 | PROVIDERS: ATTEND Registered Nurse | DX: Z51.81 Encounter for therapeutic drug level monitoring (principal); Z79.01 Long term (current) use of anticoagulants | CPT/HCPCS: 85610 ==

== ENCOUNTER 2019-10-04 11:43 | Outpatient (CLI) | payer MEDICARE, OTHER ==
--- NOTE | 2019-10-04 15:44 | XRAY Report ---
Reason: COUGH Procedure Date: 10/04/2019 Accession Number: [id number] / [id number] Procedure: XRS - Chest 2 View X-Ray CPT Code: 37733 Final Report FULL RESULT: EXAM: CHEST RADIOGRAPHY EXAM DATE: 10/04/2019 11:50 AM. CLINICAL HISTORY: COUGH. COMPARISON: CHEST 2 VIEW 05/11/2018 4:59 PM. TECHNIQUE: 2 views. FINDINGS: Lungs/Pleura: No focal opacities evident. No peribronchial cuffing or interstitial abnormality. No pleural effusion. No pneumothorax. Normal volumes. Mediastinum: Heart and mediastinal contours are unremarkable. Mild aortic calcification. Dual-chamber cardiac pacemaker electrodes, as before. Other: Moderate generalized thoracic kyphosis. Mild bilateral acromioclavicular joint osteoarthritis. IMPRESSION: Negative chest. Lungs are clear. [facility]
== END 2019-10-04 11:44 | disposition home or self-care (01) ==
LOC: DI.S 11:43
PROVIDERS: ATTEND Registered Nurse
DX: R05 Cough (principal)
CPT/HCPCS: 71046

== ENCOUNTER 2019-12-12 08:16 | Outpatient (CLI) | payer MEDICARE, OTHER | END 2019-12-12 08:17 | disposition home or self-care (01) | LOC: LAB.S 08:16 | PROVIDERS: ATTEND Registered Nurse | DX: Z79.01 Long term (current) use of anticoagulants (principal) | CPT/HCPCS: 85610 ==

== ENCOUNTER 2020-08-07 08:37 | Outpatient (CLI) | payer MEDICARE, OTHER ==
[2020-08-07 14:41] LABS: HEMOGLOBIN A1c% 8.3 % (4.27-6.07)
[2020-08-07 14:48] LABS: BUN - BLOOD UREA NITROGEN 19 mg/dL (6-20); CALCIUM 9.3 mg/dL (8.5-10.3); CARBON DIOXIDE - CO2 27 mmol/L (21-32); CHLORIDE 102 mmol/L (101-111); CHOL/HDL RATIO 3.2 (<4.4); CHOLESTEROL 142 mg/dL; GLUCOSE 170 mg/dL (70-100); HDL CHOLESTEROL 45 mg/dL; LDL CHOLESTEROL,CALCULATED 80 mg/dL; LDL/HDL RATIO 1.8 (<4.4); SODIUM 138 mmol/L (135-145); VLDL CHOLESTEROL 17 mg/dL
== END 2020-08-07 08:38 | disposition home or self-care (01) ==
LOC: LAB.S 08:37
PROVIDERS: ATTEND Registered Nurse
DX: E11.22 Type 2 diabetes mellitus with diabetic chronic kidney disease (principal); N18.9 Chronic kidney disease, unspecified
CPT/HCPCS: 36415; 80048; 80061; 83036; 83721

== ENCOUNTER 2020-10-26 08:39 | Outpatient (CLI) | payer MEDICARE, OTHER ==
[2020-10-26 16:17] LABS: BUN - BLOOD UREA NITROGEN 27 mg/dL (6-20); CALCIUM 9.2 mg/dL (8.5-10.3); CARBON DIOXIDE - CO2 27 mmol/L (21-32); CHLORIDE 101 mmol/L (101-111); CHOL/HDL RATIO 3.1 (<4.4); CHOLESTEROL 153 mg/dL; GLUCOSE 189 mg/dL (70-100); HDL CHOLESTEROL 49 mg/dL; LDL CHOLESTEROL,CALCULATED 80 mg/dL; LDL/HDL RATIO 1.6 (<4.4); VLDL CHOLESTEROL 24 mg/dL
[2020-10-26 16:21] LABS: CREATININE,URINE 131.3 mg/dL; MICROALBUM/CREATININE RATIO,UR 71.6 ug/mg (<30.0); MICROALBUMIN,URINE 9.4 mg/dL (0-300.0)
== END 2020-10-26 08:40 | disposition home or self-care (01) ==
LOC: LAB.S 08:39
PROVIDERS: ATTEND Registered Nurse
DX: E11.22 Type 2 diabetes mellitus with diabetic chronic kidney disease (principal)
CPT/HCPCS: 36415; 80048; 80061; 82043; 82570; 83036; 83721

== ENCOUNTER 2021-01-23 14:13 | Outpatient (CLI) | payer MEDICARE, OTHER | END 2021-01-23 14:14 | disposition critical access hospital (66) | LOC: EMS 14:13 | DX: R53.1 Weakness (principal) | CPT/HCPCS: A0425; A0427 ==

== ENCOUNTER 2021-01-23 14:45 | Emergency (ER) | payer MEDICARE, OTHER ==
[2021-01-23 14:51] VITALS: BP 163/67
--- NOTE | 2021-01-23 15:32 | ED Physician Documentation ---
History of Present Illness - Stated complaint Stated Complaint: HYPOGLYCEMIC - Chief complaint Chief Complaint: General - History obtained from History obtained from: Patient, EMS (Patient is a 75-year-old female who was brought in by EMS today) - History of Present Illness Pain level max: 0 Pain level now: 0 - Additonal information Additional information: Patient is a 75-year-old female who was brought in by EMS today For hypoglycemia. Blood sugar is 29. She was given glucose with EMS. Feels much better now. She states that she took her insulin today, but did not eat any breakfast or lunch. She states currently she feels well. 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 : Renal insuffiency HEENT: None Psych: None Musculoskeletal: Osteoarthritis, Osteoporosis, Osteopenia, Other Derm: Eczema, Psoriasis - Past Surgical History Past Surgical History: Yes General: Cholecystectomy, Appendectomy, Other Cardiovascular: CABG, Coronary stent, Pacemaker HEENT: Cataracts - Present Medications Home Medications: Ambulatory Orders Medication Instructions Recorded Confirmed Rosuvastatin Calcium [Crestor] 40 mg ORAL QPM 03/30/16 03/10/19 Furosemide 40 mg PO BID 11/18/17 03/10/19 Insulin Glargine [Lantus Solostar] 14 unit SUBQ BID 11/18/17 03/10/19 Labetalol HCl 200 mg PO BID 11/18/17 03/10/19 Aspirin [Aspirin EC] 81 mg PO DAILY 03/10/19 03/10/19 Insulin Aspart [NovoLOG] 0 - 11 units SQ TID 03/10/19 03/10/19 Losartan Potassium 25 mg PO DAILY 03/10/19 03/10/19 Omeprazole 20 mg PO DAILY 03/10/19 03/10/19 Oxybutynin Chloride 5 mg PO DAILY 03/10/19 03/10/19 Potassium Chloride 20 meq PO TID 03/10/19 03/10/19 Rivaroxaban [Xarelto] 20 mg PO DAILY PM 03/10/19 03/10/19 - Allergies Allergies/Adverse Reactions: Allergies Allergy/AdvReac Type Severity Reaction Status Date / Time amoxicillin Allergy Unknown Verified 11/18/17 10:02 atropine [From Lomotil] Allergy Unknown Verified 11/18/17 10:02 Cephalosporins Allergy Unknown Verified 11/18/17 10:02 diphenoxylate [From Lomotil] Allergy Unknown Verified 11/18/17 10:02 iodine Allergy Unknown Verified 11/18/17 10:02 Latex, Natural Rubber Allergy Unknown Verified 03/30/17 15:11 nickel Allergy Rash Verified 03/30/17 15:55 Penicillins Allergy Hives Verified 03/30/16 17:21 Tetanus Vaccines and Toxoid Allergy Unknown Verified 11/18/17 10:02 metformin AdvReac Unknown Verified 11/18/17 10:02 minocycline AdvReac Unknown Verified 11/18/17 10:02 oxycodone AdvReac Unknown Verified 11/18/17 10:02 [id number] Reductase AdvReac Unknown Verified 11/18/17 10:02 Inhibitor - Social History Does the pt smoke?: No Smoking Status: Never smoker Does the pt drink ETOH?: Yes Does the pt have substance abuse?: No - Immunizations Immunizations are current?: Yes - POLST Patient has POLST: No PD ED PE NORMAL - Vitals Vital signs reviewed: Yes - General General: Alert and oriented X 3, No acute distress, Well developed/nourished - HEENT HEENT: PERRL, Moist mucous membranes - Neck Neck: Supple, no meningeal sign - Cardiac Cardiac: RRR, Strong equal pulses - Respiratory Respiratory: No respiratory distress, Clear bilaterally - Abdomen Abdomen: Soft, Non tender, Non distended - Derm Derm: Warm and dry - Extremities Extremities: No edema, No calf tenderness / cord - Neuro Neuro: Alert and oriented X 3, psych coordinator 2-12 intact, No motor deficit, No sensory deficit, Normal speech Eye Opening: Spontaneous Motor: Obeys Commands Verbal: Oriented GCS Score: 15 - Psych Psych: Normal mood, Normal affect Results - Vitals Vitals: Vital Signs - 24 hr 01/23/21 14:48 Temperature 36.2 C L Heart Rate 70 Respiratory 19 Rate Blood Pressure 163/67 H O2 Saturation 100 Oxygen O2 Source Room air PD MEDICAL DECISION MAKING - ED course Complexity details: reviewed results, re-evaluated patient, considered differential, d/w patient ED course: Patient ate and drink in the emergency department. No recurrent hypoglycemia. She feels better and would like to go home. Informed her not to take her insulin until she is ready to eat. Patient will check her blood sugars at home today as well. Patient counseled regarding signs and symptoms for which I believe and urgent re-evaluation would be necessary. Patient with good understanding of and agreement to plan and is comfortable going home at this time This document was made in part using voice recognition software. While efforts are made to proofread this document, sound alike and grammatical errors may occur. Departure - Departure Disposition: 01 Home, Self Care Clinical Impression: Hypoglycemia Condition: Good Instructions: ED Diabetes Hypoglycemia Insulin React Follow-Up: Mary Almodovar ARNP [Primary Care Provider] - Comments: Please make sure you are eating at home regularly especially after taking your insulin. Follow-up with your doctor for further care. You should check your blood sugar periodically throughout the day today. Discharge Date/Time: 01/23/21 16:38
== END 2021-01-23 16:38 | disposition home or self-care (01) ==
LOC: EDSEX → EDUNIT# → ED 14:45
DX: E11.649 Type 2 diabetes mellitus with hypoglycemia without coma (principal); Z79.4 Long term (current) use of insulin; I10 Essential (primary) hypertension; I48.91 Unspecified atrial fibrillation; Z79.01 Long term (current) use of anticoagulants
CPT/HCPCS: 99283; 99284

== ENCOUNTER 2021-04-24 12:10 | Outpatient (CLI) | payer MEDICARE, OTHER | END 2021-04-24 12:11 | disposition critical access hospital (66) | LOC: EMS 12:10 | DX: R50.9 Fever, unspecified (principal); R11.2 Nausea with vomiting, unspecified; R19.7 Diarrhea, unspecified; R52 Pain, unspecified | CPT/HCPCS: A0425; A0429 ==

== ENCOUNTER 2021-04-24 12:45 | Inpatient (IN) | payer MEDICARE, OTHER ==
[2021-04-24] MEDS ORDERED: SODIUM CHLORIDE 0.9% 1,000 ML IV STA (13:13)
[2021-04-24] MEDS ORDERED: ACETAMINOPHEN 325 MG TABLET PO STA (13:13)
--- NOTE | 2021-04-24 13:17 | ED Physician Documentation ---
PD HPI DYSPNEA - Stated complaint Stated Complaint: BODY ACHES N/V/D - Chief complaint Chief Complaint: Resp - History obtained from History obtained from: Patient, EMS - Additional information Additional information: 75-year-old woman with history of COPD, coronary bypass, type 2 diabetes brought in by ambulance for an acute illness. She is a vague historian but it sounds like she just been sick for a couple of days with cough, body aches. Also developed a right leg cellulitis today. She has been fully immunized against Covid but has been in contact with her niece who recently had Covid. She does have a cough. 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 : Renal insuffiency HEENT: None Psych: None Musculoskeletal: Osteoarthritis, Osteoporosis, Osteopenia, Other Derm: Eczema, Psoriasis - Past Surgical History Past Surgical History: Yes General: Cholecystectomy, Appendectomy, Other Cardiovascular: CABG, Coronary stent, Pacemaker HEENT: Cataracts - Present Medications Home Medications: Ambulatory Orders Medication Instructions Recorded Confirmed Rosuvastatin Calcium [Crestor] 40 mg ORAL QPM 03/30/16 03/10/19 Furosemide 40 mg PO BID 11/18/17 03/10/19 Insulin Glargine [Lantus Solostar] 14 unit SUBQ BID 11/18/17 03/10/19 Labetalol HCl 200 mg PO BID 11/18/17 03/10/19 Aspirin [Aspirin EC] 81 mg PO DAILY 03/10/19 03/10/19 Insulin Aspart [NovoLOG] 0 - 11 units SQ TID 03/10/19 03/10/19 Losartan Potassium 25 mg PO DAILY 03/10/19 03/10/19 Omeprazole 20 mg PO DAILY 03/10/19 03/10/19 Oxybutynin Chloride 5 mg PO DAILY 06/20/19 06/20/19 Potassium Chloride 20 meq PO TID 03/10/19 03/10/19 Rivaroxaban [Xarelto] 20 mg PO DAILY PM 03/10/19 03/10/19 - Allergies Allergies/Adverse Reactions: Allergies Allergy/AdvReac Type Severity Reaction Status Date / Time amoxicillin Allergy Unknown Verified 04/24/21 12:57 atropine [From Lomotil] Allergy Unknown Verified 04/24/21 12:57 Cephalosporins Allergy Unknown Verified 04/24/21 12:57 diphenoxylate [From Lomotil] Allergy Unknown Verified 04/24/21 12:57 iodine Allergy Unknown Verified 04/24/21 12:57 Latex, Natural Rubber Allergy Unknown Verified 04/24/21 12:57 nickel Allergy Rash Verified 04/24/21 12:57 Penicillins Allergy Hives Verified 04/24/21 12:57 Tetanus Vaccines and Toxoid Allergy Unknown Verified 04/24/21 12:57 metformin AdvReac Unknown Verified 04/24/21 12:57 minocycline AdvReac Unknown Verified 04/24/21 12:57 oxycodone AdvReac Unknown Verified 04/24/21 12:57 [id number]-[id number]-Isa Reductase AdvReac Unknown Verified 04/24/21 12:57 Inhibitor - Social History Does the pt smoke?: No Smoking Status: Never smoker Does the pt drink ETOH?: Yes Does the pt have substance abuse?: No - Immunizations Immunizations are current?: Yes - POLST Patient has POLST: No PD ED PE NORMAL - Vitals Vital signs reviewed: Yes - General General: No acute distress, Other (She is slightly confused, restless and encephalopathic, she knows the date but is quick to nod off and seems confused by recent historical events.) - HEENT HEENT: PERRL, EOMI - Neck Neck: Supple, no meningeal sign, No bony TTP - Cardiac Cardiac: Other (3 out of 6 machinelike systolic murmur which she says is previous existing.) - Respiratory Respiratory: Other (Diminished throughout and tachypneic) - Abdomen Abdomen: Normal bowel sounds, Soft, Non tender - Extremities Extremities: Other (Cellulitis of the right ankle from the ankle up to the mid to upper calf) - Neuro Neuro: Alert and oriented X 3 Eye Opening: To Voice Motor: Obeys Commands Verbal: Confused GCS Score: 13 Results - Vitals Vitals: Vital Signs - 24 hr 04/24/21 04/24/21 04/24/21 12:57 13:24 14:00 Temperature 38.9 C H Heart Rate 76 90 109 H Respiratory 22 21 30 H Rate Blood Pressure 170/84 H 180/68 H O2 Saturation 90 L 94 95 04/24/21 04/24/21 04/24/21 14:45 15:00 15:30 Temperature 37.6 C Heart Rate 98 102 H 124 H Respiratory 21 27 H 22 Rate Blood Pressure 183/54 H O2 Saturation 94 95 96 04/24/21 04/24/21 04/24/21 16:00 16:09 16:30 Temperature 37.6 C Heart Rate 119 H 112 H 85 Respiratory 27 H 27 H 27 H Rate Blood Pressure 109/71 130/65 O2 Saturation 96 96 97 04/24/21 17:00 Temperature 36.9 C Heart Rate 95 Respiratory 30 H Rate Blood Pressure 150/71 H O2 Saturation 97 Oxygen O2 Source Nasal cannula Oxygen Flow Rate 2 - EKG (time done) 1404 Rate: Rate (enter#) (117) Rhythm: Atrial fibrillation QRS: LVH Ischemia: Non specific changes. No: ST elevation c/w ischemia, ST depression Computer interpretation: Agree with computer - Labs Labs: Laboratory Tests 04/24/21 04/24/21 04/24/21 13:22 13:22 13:22 WBC 15.9 H RBC 3.96 L Hgb 12.5 Hct 38.9 MCV 98.2 MCH 31.6 H MCHC 32.1 RDW 13.1 Plt Count 206 MPV 10.9 H Neut # (Auto) 14.8 H Lymph # (Auto) 0.4 L [place] # (Auto) 0.5 Eos # (Auto) 0.1 Baso # (Auto) 0.1 Absolute Nucleated RBC 0.00 Nucleated RBC % 0.0 ESR Sodium 137 Potassium 3.1 L Chloride 99 L Carbon Dioxide 27 Anion Gap 11.0 BUN 19 Creatinine 0.9 Estimated GFR (MDRD) 61 L Glucose 277 H Lactic Acid Calcium 9.0 Total Bilirubin 1.0 AST 22 ALT 23 Alkaline Phosphatase 48 Troponin I High Sens C-Reactive Protein B-Natriuretic Peptide Total Protein 7.1 Albumin 3.9 Globulin 3.2 Albumin/Globulin Ratio 1.2 Nasal Adenovirus (PCR) NOT DETECTED Nasal B. parapertussis DNA (PCR) NOT DETECTED Nasal Coronavir 229E PCR NOT DETECTED Nasal Coronavir HKU1 PCR NOT DETECTED Nasal Coronavir NL63 PCR NOT DETECTED Nasal Coronavir OC43 PCR NOT DETECTED Nasal Enterovir/Rhinovir PCR NOT DETECTED Nasal Influenza B PCR NOT DETECTED Nasal Influenza A PCR NOT DETECTED Nasal Parainfluen 1 PCR NOT DETECTED Nasal Parainfluen 2 PCR NOT DETECTED Nasal Parainfluen 3 PCR NOT DETECTED Nasal Parainfluen 4 PCR NOT DETECTED Nasal RSV (PCR) NOT DETECTED Nasal B.pertussis DNA PCR NOT DETECTED Nasal C.pneumoniae (PCR) NOT DETECTED Ye Human Metapneumo PCR NOT DETECTED Nasal M.pneumoniae (PCR) NOT DETECTED Nasal SARS-CoV-2 (PCR) NOT DETECTED 04/24/21 04/24/21 04/24/21 13:22 13:22 13:22 WBC RBC Hgb Hct MCV MCH MCHC RDW Plt Count MPV Neut # (Auto) Lymph # (Auto) [place] # (Auto) Eos # (Auto) Baso # (Auto) Absolute Nucleated RBC Nucleated RBC % ESR 1 Sodium Potassium Chloride Carbon Dioxide Anion Gap BUN Creatinine Estimated GFR (MDRD) Glucose Lactic Acid Calcium Total Bilirubin AST ALT Alkaline Phosphatase Troponin I High Sens 72.4 H* C-Reactive Protein < 1.0 B-Natriuretic Peptide Total Protein Albumin Globulin Albumin/Globulin Ratio Nasal Adenovirus (PCR) Nasal B. parapertussis DNA (PCR) Nasal Coronavir 229E PCR Nasal Coronavir HKU1 PCR Nasal Coronavir NL63 PCR Nasal Coronavir OC43 PCR Nasal Enterovir/Rhinovir PCR Nasal Influenza B PCR Nasal Influenza A PCR Nasal Parainfluen 1 PCR Nasal Parainfluen 2 PCR Nasal Parainfluen 3 PCR Nasal Parainfluen 4 PCR Nasal RSV (PCR) Nasal B.pertussis DNA PCR Nasal C.pneumoniae (PCR) Ye Human Metapneumo PCR Nasal M.pneumoniae (PCR) Nasal SARS-CoV-2 (PCR) 04/24/21 04/24/21 04/24/21 13:31 15:06 15:32 WBC RBC Hgb Hct MCV MCH MCHC RDW Plt Count MPV Neut # (Auto) Lymph # (Auto) [place] # (Auto) Eos # (Auto) Baso # (Auto) Absolute Nucleated RBC Nucleated RBC % ESR Sodium Potassium Chloride Carbon Dioxide Anion Gap BUN Creatinine Estimated GFR (MDRD) Glucose Lactic Acid 2.2 Calcium Total Bilirubin AST ALT Alkaline Phosphatase Troponin I High Sens 264.8 H* C-Reactive Protein B-Natriuretic Peptide 1139 H Total Protein Albumin Globulin Albumin/Globulin Ratio Nasal Adenovirus (PCR) Nasal B. parapertussis DNA (PCR) Nasal Coronavir 229E PCR Nasal Coronavir HKU1 PCR Nasal Coronavir NL63 PCR Nasal Coronavir OC43 PCR Nasal Enterovir/Rhinovir PCR Nasal Influenza B PCR Nasal Influenza A PCR Nasal Parainfluen 1 PCR Nasal Parainfluen 2 PCR Nasal Parainfluen 3 PCR Nasal Parainfluen 4 PCR Nasal RSV (PCR) Nasal B.pertussis DNA PCR Nasal C.pneumoniae (PCR) Ye Human Metapneumo PCR Nasal M.pneumoniae (PCR) Nasal SARS-CoV-2 (PCR) 04/24/21 16:49 WBC RBC Hgb Hct MCV MCH MCHC RDW Plt Count MPV Neut # (Auto) Lymph # (Auto) [place] # (Auto) Eos # (Auto) Baso # (Auto) Absolute Nucleated RBC Nucleated RBC % ESR Sodium Potassium Chloride Carbon Dioxide Anion Gap BUN Creatinine Estimated GFR (MDRD) Glucose Lactic Acid 2.6 H Calcium Total Bilirubin AST ALT Alkaline Phosphatase Troponin I High Sens C-Reactive Protein B-Natriuretic Peptide Total Protein Albumin Globulin Albumin/Globulin Ratio Nasal Adenovirus (PCR) Nasal B. parapertussis DNA (PCR) Nasal Coronavir 229E PCR Nasal Coronavir HKU1 PCR Nasal Coronavir NL63 PCR Nasal Coronavir OC43 PCR Nasal Enterovir/Rhinovir PCR Nasal Influenza B PCR Nasal Influenza A PCR Nasal Parainfluen 1 PCR Nasal Parainfluen 2 PCR Nasal Parainfluen 3 PCR Nasal Parainfluen 4 PCR Nasal RSV (PCR) Nasal B.pertussis DNA PCR Nasal C.pneumoniae (PCR) Ye Human Metapneumo PCR Nasal M.pneumoniae (PCR) Nasal SARS-CoV-2 (PCR) PD MEDICAL DECISION MAKING - ED course ED course: 75-year-old woman presents febrile, borderline pulse oximetry, abnormal lung sounds and a right lower extremity cellulitis. She is septic with tachycardia and fever. She also has a white count. Right lower extremity cellulitis treated with vancomycin and Cipro after discussion with the hospitalist noting extensive antibiotic allergies. She has a rising troponin here and was in A. fib with RVR which was managed with divided doses of diltiazem. She also has some element of CHF. Hospitalist request a consult with cardiology and at 5:29 PM did discuss the case with Dr. Sp hitchcock Soldier who feels there is no need for transfer. - Sepsis Event Sepsis Onset Date: 04/24/21 Sepsis Onset Time: 13:24 Current Stage of Sepsis: Sepsis Initial Hypotension: Not hypotensive Possible source of Sepsis: Skin/soft tissue (vs covid or other pulm source) Mental/Cognitive Status: Lethargic Reason for not giving 30ml/kg crystalloid fluids: Not in septic shock Capillary refill: Less than 2 seconds Peripheral Pulse Strength: 2+ Slightly Diminished Peripheral Pulse Location: Radial Departure - Departure Disposition: [facility] DC/Xfer Clinical Impression: Atrial fibrillation with RVR Sepsis Qualifiers: Sepsis type: sepsis due to unspecified organism Sepsis acute organ dysfunction status: without acute organ dysfunction Qualified Code(s): A41.9 - Sepsis, unspecified organism Cellulitis Qualifiers: Site of cellulitis: extremity Site of cellulitis of extremity: lower extremity Laterality: right Qualified Code(s): L03.115 - Cellulitis of right lower limb CHF (congestive heart failure) Qualifiers: Heart failure type: unspecified Heart failure chronicity: acute on chronic Qualified Code(s): I50.9 - Heart failure, unspecified Condition: Serious
[2021-04-24] MEDS ORDERED: VANCOMYCIN INJ 1.5 GM in SODIUM CHLORIDE 0.9% 500 ML IV STA (13:19)
[2021-04-24] MEDS ORDERED: VANCOMYCIN INJ 2 GM, VANCOMYCIN INJ 250 MG in SODIUM CHLORIDE 0.9% 500 ML IV STA (13:31)
[2021-04-24 13:39] LABS: BASOPHILS # (AUTO) 0.1 10^3/uL (0.0-0.1); BASOPHILS % (AUTO) 0.3 %; EOSINOPHILS # (AUTO) 0.1 10^3/uL (0.0-0.7); EOSINOPHILS % (AUTO) 0.3 %; HCT - HEMATOCRIT 38.9 % (37.0-47.0); HGB - HEMOGLOBIN 12.5 g/dL (12.0-16.0); LYMPHOCYTES # (AUTO) 0.4 10^3/uL (1.5-3.5); LYMPHOCYTES % (AUTO) 2.4 %; MEAN CORPUSCULAR HEMOGLOBIN 31.6 pg (27.0-31.0); MEAN CORPUSCULAR HGB CONC 32.1 g/dL (32.0-36.0); MEAN CORPUSCULAR VOLUME 98.2 fL (81.0-99.0); MEAN PLATELET VOLUME 10.9 fL (7.9-10.8); MONOCYTES # (AUTO) 0.5 10^3/uL (0.0-1.0); NEUTROPHILS # (AUTO) 14.8 10^3/uL (1.5-6.6); NEUTROPHILS % (AUTO) 92.9 %; PLT - PLATELET COUNT 206 10^3/uL (130-450); RED BLOOD COUNT 3.96 10^6/uL (4.20-5.40); RED CELL DISTRIBUTION WIDTH 13.1 % (12.0-15.0); WHITE BLOOD COUNT 15.9 x10^3/uL (4.8-10.8)
[2021-04-24 13:47] LABS: LACTIC ACID, VENOUS 2.2 mmol/L (0.5-2.2)
[2021-04-24 13:48] LABS: ALBUMIN 3.9 g/dL (3.2-5.5); ALBUMIN/GLOBULIN RATIO 1.2 (1.0-2.2); CREATININE 0.9 mg/dL (0.4-1.0); POTASSIUM 3.1 mmol/L (3.5-5.0); TOTAL PROTEIN 7.1 g/dL (6.7-8.2)
--- NOTE | 2021-04-24 13:59 | XRAY Report ---
PROCEDURE: Chest 1 View X-Ray INDICATIONS: dyspnea cough TECHNIQUE: One view of the chest was acquired. COMPARISON: 10/04/2019 FINDINGS: Surgical changes and devices: Dual-lead cardiac pacer Lungs and pleura: No pleural effusions or pneumothorax. Diffuse bilateral patchy groundglass opaci ties Mediastinum: Mediastinal contours appear normal. Heart size is normal. Bones and chest wall: No suspicious bony lesions. Overlying soft tissues appear unremarkable. IMPRESSION: Diffuse patchy groundglass opacities suggestive of pulmonary edema. Recommend clinical and laboratory correlation to exclude underlying atypical/viral infection. If there is persistent clinical diagnost ic uncertainty, recommend short interval radiographic follow-up after treatment for further assessmen t. Reviewed by: Yared Cardona MD on 04/24/2021 1:57 PM PDT Approved by: Yared Cardona MD on 04/24/2021 1:57 PM PDT Station ID: [id number]
[2021-04-24] MEDS ORDERED: diltiaZEM INJ 5 MG/ML VIAL IVP STA ×2 (14:13→16:02)
[2021-04-24 14:55] LABS: B. PARAPERTUSSIS- RESP PCR PAN NOT DETECTED; B. PERTUSSIS- RESP PCR PANEL NOT DETECTED; C. PNEUMONIAE- RESP PCR PANEL NOT DETECTED; CORONAVIRUS 229E-RESP PCR NOT DETECTED; CORONAVIRUS HKU1-RESP PCR NOT DETECTED; CORONAVIRUS NL63-RESP PCR NOT DETECTED; CORONAVIRUS OC43-RESP PCR NOT DETECTED; HUMAN METAPNEUMOVIRUS NOT DETECTED; INFLUENZA A- RESP PCR PANEL NOT DETECTED; INFLUENZA B - RESP PCR PANEL NOT DETECTED; PARAINFLUENZA VIRUS 1 NOT DETECTED; PARAINFLUENZA VIRUS 2 NOT DETECTED; PARAINFLUENZA VIRUS 3 NOT DETECTED; PARAINFLUENZA VIRUS 4 NOT DETECTED; RHINOVIRUS/ENTEROVIRUS NOT DETECTED; RSV- RESP PCR PANEL NOT DETECTED; SARS-CoV-2 -RESP PCR PANEL NOT DETECTED
[2021-04-24 14:56] LABS: M. PNEUMONIAE- RESP PCR PANEL NOT DETECTED
[2021-04-24] MEDS ORDERED: CIPROFLOXACIN 400 MG/200 ML 400 MG/200 ML BAG IV STA (15:24)
[2021-04-24 17:10] LABS: LACTIC ACID, VENOUS 2.6 mmol/L (0.5-2.2)
[2021-04-24] MEDS ORDERED: ACETAMINOPHEN 500 MG TABLET PO STA (17:21)
[2021-04-24] MEDS ORDERED: ONDANSETRON 4 MG/2 ML VIAL IVP PRN (17:32)
[2021-04-24] MEDS ORDERED: ONDANSETRON ODT 4 MG TABLET TL PRN (17:32)
[2021-04-24 17:46] LABS: BILIRUBIN,URINE NEGATIVE (NEGATIVE); GLUCOSE, URINE (UA) NEGATIVE (NEGATIVE); KETONES,URINE (UA) NEGATIVE (NEGATIVE); LEUKOCYTE ESTERASE, URINE LARGE (NEGATIVE); NITRITE,URINE NEGATIVE (NEGATIVE); OCCULT BLOOD,URINE SMALL (NEGATIVE); PH,URINE 5.5 PH (5.0-7.5); PROTEIN,URINE 100 mg/dL (NEGATIVE); UROBILINOGEN,URINE 0.2 (NORMAL) E.U./dL (NORMAL)
[2021-04-24 17:51] LABS: CLARITY,URINE CLOUDY (CLEAR)
[2021-04-24 18:02] LABS: EPITHELIAL CELLS,UR MOD Transitional /HPF (<= Few); SQUAMOUS EPITHELIAL CELL,UR MANY Squamous (<= Few); WBC,URINE >25 /HPF (0-5)
[2021-04-24 18:03] LABS: BACTERIA,URINE Few /HPF (None Seen)
--- NOTE | 2021-04-24 18:19 | HISTORY & PHYSICAL EXAMINATION ---
Chief Complaint - Chief Complaint Chief Complaint: Right leg redness History of Present Illness - Admitted From Admitted From:: Home - History Obtained From Records Reviewed: Yes History obtained from: Patient, ER Physician, EMR - History of Present Illness HPI Comment/Other: This is a 75-year-old female with a past medical history significant for c oronary artery disease status post CABG, atrial fibrillation on Coumadin, insulin-dependent type 2 diabetes mellitus who presents today complaining of right lower extremity erythema. She states she noticed her leg became red and warm last Thursday and this has progressed over the past few days. She became increasingly concerned yesterday and today because she developed fevers, chills, rigors and just generalized fatigue. She reports having a history of cellulitis in the past in both of her lower extremities. She reports that her dog did scratch her over the medial aspect of her right upper thigh but that this area is not bothering her. She notes that she had a small crack over her right heel over a week ago and she is not sure if this may have contributed to her infection or not. She does report mild neuropathy at baseline but that her sensation for the most part is intact. She denies any chest pain or dyspnea. She reports no cough, orthopnea. She does report nausea and vomiting this morning. Denies any abdominal pain, dysuria, hematuria. In the emergency department, she is noted to be febrile with a temperature of 38.9 C. She was also tachycardic with a heart rates in the 120s and in atrial fibrillation. She was tachypneic with a respiratory in the low 20s. She was noted to be saturating 90% on room air and so she was placed on 2 L of oxygen with improvement in her saturations to 95%. Chest x-ray was obtained which showed pulmonary vascular edema versus atypical pneumonia. Labs revealed a white count of 15.9, potassium of 3.1 and an initial lactic acid of 2.2 which on recheck increased to 2.5. Initial troponin was 72.4 and 2 hours later it had increased to 264.8. Her BNP was elevated at 1100. Her EKG showed atrial fibrillation with rates in the 120s and nonspecific changes. The emergency department physician did speak with cardiology at [facility] who felt that transfer was not warranted at this point. Given the above findings, medicine was consul eric for admission. She did receive vancomycin and ciprofloxacin in the emergency department. I did discuss goals of care with the patient and she is not sure what she would like and therefore she wants to be a full code for the time being. History - Past Medical History Cardiovascular: reports: Hypertension, High cholesterol, Coronary artery disease, Atrial fibrillation, Murmur, Valve disorder Respiratory: reports: None Endocrine/Autoimmune: reports: Type 2 diabetes GI: reports: GERD, Chronic diarrhea ENDS DOWN CHECKER: reports: None HEENT: reports: None Psych: reports: None Musculoskeletal: reports: Osteoarthritis, Osteoporosis, Osteopenia, Other Derm: reports: Eczema, Psoriasis MRSA Hx?: No - Past Surgical History General: reports: Cholecystectomy, Appendectomy Cardiovascular: reports: CABG, Coronary stent, Pacemaker HEENT: reports: Cataracts - Family & Social History Family History Comment/Other: Her father at the age of 52 from liver cirrhosis due to alcohol use. Her mother had a history of heart disease. Her maternal grandmother also had a history of heart disease. Living arrangement: At home Living Situation: With family Social History Notes: She lives at home with her and son. 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 She smoked half a pack a day for 20 years but quit over 30 years ago. She rarely drinks alcohol. - POLST Patient has POLST: No Meds/Allgy - Home Medications Home Medications: Ambulatory Orders Medication Instructions Recorded Confirmed Rosuvastatin Calcium [Crestor] 40 mg ORAL QPM 03/30/16 03/10/19 Furosemide 40 mg PO BID 11/18/17 03/10/19 Insulin Glargine [Lantus Solostar] 14 unit SUBQ BID 11/18/17 03/10/19 Labetalol HCl 200 mg PO BID 11/18/17 03/10/19 Aspirin [Aspirin EC] 81 mg PO DAILY 03/10/19 03/10/19 Insulin Aspart [NovoLOG] 0 - 11 units SQ TID 03/10/19 03/10/19 Losartan Potassium 25 mg PO DAILY 03/10/19 03/10/19 Omeprazole 20 mg PO DAILY 03/10/19 03/10/19 Oxybutynin Chloride 5 mg PO DAILY 03/10/19 03/10/19 Potassium Chloride 20 meq PO TID 03/10/19 03/10/19 Rivaroxaban [Xarelto] 20 mg PO DAILY PM 03/10/19 03/10/19 - Allergies Allergies/Adverse Reactions: Allergies Allergy/AdvReac Type Severity Reaction Status Date / Time amoxicillin Allergy Unknown Verified 04/24/21 12:57 atropine [From Lomotil] Allergy Unknown Verified 04/24/21 12:57 Cephalosporins Allergy Unknown Verified 04/24/21 12:57 diphenoxylate [From Lomotil] Allergy Unknown Verified 04/24/21 12:57 iodine Allergy Unknown Verified 04/24/21 12:57 Latex, Natural Rubber Allergy Unknown Verified 04/24/21 12:57 nickel Allergy Rash Verified 04/24/21 12:57 Penicillins Allergy Hives Verified 04/24/21 12:57 Tetanus Vaccines and Toxoid Allergy Unknown Verified 04/24/21 12:57 metformin AdvReac Unknown Verified 04/24/21 12:57 minocycline AdvReac Unknown Verified 04/24/21 12:57 oxycodone AdvReac Unknown Verified 04/24/21 12:57 [id number] Reductase AdvReac Unknown Verified 04/24/21 12:57 Inhibitor Review of Systems - Constitutional Constitutional: reports: Fatigue, Fever, Chills, Malaise - Ears, Nose & Throat Ears, Nose & Throat: denies: Nasal discharge, Nasal congestion, Sore throat - Cardiovascular Cariovascular: reports: Edema. denies: Palpitations, Chest pain, Lightheadedness, Exertional dyspnea, Decr. exercise tolerance - Respiratory Respiratory: denies: Cough, Orthopnea, SOB at rest, SOB with exertion - Gastrointestinal Gastrointestinal: reports: Nausea, Vomiting. denies: Abdominal pain - Genitourinary Genitourinary: denies: Dysuria, Frequency, Hematuria - Musculoskeletal Musculoskeletal: reports: Joint pain - Integumentary Integumentary: reports: Pigment changes. denies: Lesions - Neurological Neurological: reports: General weakness, Headache, Numbness. denies: Focal weakness, Dizziness - All Other Systems All Other Systems: reports: Reviewed and negative Prior Level of Functionality: She is normally independent with her ADLs and ambulates with a walker at baseline. Exam - Vital Signs Reviewed Vital Signs: Yes Vital Signs: Vital Signs x48h Temp Pulse Resp BP Pulse Ox 04/24/21 17:30 111 H 21 145/75 H 97 04/24/21 17:00 36.9 C 95 30 H 150/71 H 97 04/24/21 16:30 85 27 H 130/65 97 08/04/21 16:09 37.6 C 112 H 27 H 109/71 96 04/24/21 16:00 119 H 27 H 96 04/24/21 15:30 124 H 22 96 04/24/21 15:00 102 H 27 H 95 04/24/21 14:45 37.6 C 98 21 183/54 H 94 04/24/21 14:00 109 H 30 H 95 04/24/21 13:24 90 21 180/68 H 94 04/24/21 12:57 38.9 C H 76 22 170/84 H 90 L - Physical Exam General Appearance: positive: Other (She does not appear in distress but does appear ill.) Eyes Bilateral: positive: Normal inspection, Conjunctivae nml ENT: positive: ENT inspection nml, Other (Nasal cannula in place.) Neck: positive: Nml inspection Respiratory: positive: No respiratory distress, Other (Faint crackles bilaterally.). negative: Wheezes Cardiovascular: positive: Irregularly irregular, Tachycardia, Systolic murmur. negative: Bradycardia Abdomen: positive: Non-tender, No distention. negative: Tenderness, Guarding, Rebound Skin: positive: Warm, Dry, Other (There is an area of erythema extending from the right ankle to mid [place]. This is warm and tender to touch. There is also a small 2 cm laceration over her right heel. The skin is quite dry there. No surrounding erythema.) Extremities: positive: Pedal edema (+1 pitting edema in bilateral lower extremities.) Neurologic/Psychiatric: positive: Other (No focal deficits.). negative: Disoriented to person, Disoriented to place Sepsis Event Note (H) - Evaluation Current Stage of Sepsis: Severe sepsis Possible source of Sepsis: positive: Skin/soft tissue - Sepsis Criteria Sepsis Criteria: Recorded Temperature greater than 38.3C or Less than 36C, Recorded Heart Rate greater than 90 bpm, Respiratory: Increasing oxygen requirements, WBC count greater than 12,000 or less than 4000, MANAGER IMPLEMENTATION: altered consciousness (unrelated to primary neuro pathology), Metabolic: lactate > 2 mmol/L Conclusion/Plan - Problem List (1) Severe sepsis Conclusion/Plan: This is likely secondary to the right lower extremity cellulitis. She presents with a fever, leukocytosis, tachycardia and elevated lactic acid. Fortunately she is not hypotensive. She has already received 1 L of normal saline in the emergency department. At this time, we will continue her on vancomycin and ciprofloxacin for the cellulitis given she is diabetic with a small laceration over her heel. I suspect she may be bacteremic given her rigors and chills and we will follow up the blood cultures. We will hold off on further IV hydration this time given she does appear to be in heart failure and the fact that she is normotensive. Trend lactic acid. (2) Cellulitis of right lower extremity Conclusion/Plan: This appears to be the cause of her sepsis. The anterior aspect of her right lower extremity from the ankle to mid [place] is quite erythematous and warm to touch. There is a small laceration over her right heel but does not appear to be infected but this may have potentially seeded the cellulitis. Given she is a diabetic we will continue her on vancomycin and ciprofloxacin. We will look to de-escalate to oral antibiotics as she improves over the next 24 to 48 hours and this will also depend on if she is bacteremic or not. (3) Acute on chronic diastolic CHF (congestive heart failure) Conclusion/Plan: There is concern for acute on chronic heart failure given she is requiring 2 L of oxygen as well as the fact that she is edematous with an elevated BNP of 1100. Fortunately, she does not report feeling dyspneic and appears comfortable from a respiratory standpoint. We will hold off on diuresis at this time given her sepsis but she likely will need to be diuresed over the next 24 hours. Will obtain echocardiogram in the morning. Check daily weights and follow her I's and O's. (4) Elevated troponin Conclusion/Plan: Her troponin was elevated at 70 and this increased to 270. Her EKG shows atrial fibrillation with nonspecific changes. She reports no chest pain. Suspect is likely demand ischemia given her underlying sepsis as well as the possible heart failure and atrial fibrillation with rapid ventricular response. The emergency department physician did speak with cardiology at [facility] who felt transfer is not warranted at this time. She is already anticoagulated given she is on Coumadin and we will check an INR. At this time, we will continue to trend her troponin after continue to be significant rise we will administer aspirin and consider heparin if necessary. 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 We will order an echocardiogram for tomorrow to assess for any wall motion abnormalities. Monitor on telemetry. 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 Moore at the [facility]. (5) Atrial fibrillation with RVR Conclusion/Plan: Her heart rate has been intermittently elevated to the 120s. She received diltiazem in the emergency department with some improvement to the low 100s. She is on Coumadin and labetalol at home. We will place her on Lopressor 5 mg IV every 6 hours until the med rec is completed and then we will resume her home medications. We will check an INR and likely continue Coumadin unless there is concern for NSTEMI in which we will hold the Coumadin and place her on heparin. Continue to monitor on telemetry. (6) Coronary artery disease Conclusion/Plan: She is a known history of coronary artery disease with CABG about 4 years ago. Her troponin is elevated as mentioned above and we will proceed with trending of her troponin and an echocardiogram as mentioned. (7) Insulin dependent diabetes mellitus Conclusion/Plan: Her blood glucose is elevated at 277 and this is secondary to her not taking her insulin this morning. We will resume her home insulin regimen and place her on a sliding scale. Carb controlled diet. (8) History of pacemaker Conclusion/Plan: She is a pacemaker in place for atrial fibrillation. We will control her heart rate with metoprolol as mentioned above. - Lab Results Lab results reviewed: Yes Basil Bones: 04/24/21 13:22 04/24/21 13:22 - Diagnostic Imaging Results Diagnostic Imaging Results: positive: Final report reviewed - EKG Results EKG Interpreted Independently: Yes EKG Comparison: Changed from prior EKG EKG Findings: EKG reveals a tribulation of appendectomy ventricular response. Heart rate in the 120s. There is [address] segment changes. Core Measures - Anticipated LOS I expect patient to be DC'd or transferred within 96 hours.: Yes - Issues Hospital Issues and Management Plan: This is a 75-year-old female who presents with right lower extremity cellulitis found to have sepsis. Her troponin is also noted to be elevated but suspect likely demand ischemia. She will be admitted for IV antibiotics. - DVT/VTE - Prophylaxis VTE/DVT Device ordered at admit?: No Not Ordered - Medical Reason: Contraindicated VTE/DVT Prophylaxis med ordered at admit?: Yes
[2021-04-24 18:46] LABS: INR 3.8 (0.8-1.2); PT - PROTHROMBIN TIME 38.4 secs (9.9-12.6)
[2021-04-24] MEDS: POTASSIUM CHLOR 10 MEQ/100 ML 10 MEQ/100 ML BAG IV SCH ×2 (20:46→22:59)
[2021-04-24] MEDS: ACETAMINOPHEN 325 MG TABLET PO PRN (22:08)
[2021-04-24] MEDS: INSULIN GLARGINE 300 UNIT/3 ML PEN SUBQ SCH (22:09)
[2021-04-24] MEDS: INSULIN ASPART 300 UNIT/3 ML PEN SUBQ SCH (22:10)
[2021-04-25] MEDS: METOPROLOL 5 MG/5 ML VIAL IVP SCH ×4 (00:37→18:02)
[2021-04-25] MEDS: POTASSIUM CHLOR 10 MEQ/100 ML 10 MEQ/100 ML BAG IV SCH ×2 (01:37→06:04)
[2021-04-25] MEDS: SODIUM CHLORIDE FLUSH 0.9% 10 ML SYRINGE IVP SCH ×3 (01:40→16:15)
[2021-04-25] MEDS ORDERED: POTASSIUM CHLOR 10 MEQ/100 ML 10 MEQ/100 ML BAG IV SCH (04:00)
[2021-04-25] MEDS: ACETAMINOPHEN 325 MG TABLET PO PRN ×4 (05:23→20:44)
[2021-04-25] MEDS: SODIUM CHLORIDE FLUSH 0.9% 10 ML SYRINGE IVP PRN (05:34)
[2021-04-25 06:55] LABS: BASOPHILS % (AUTO) 0.4 %; EOSINOPHILS % (AUTO) 0.6 %; HGB - HEMOGLOBIN 11.2 g/dL (12.0-16.0); LYMPHOCYTES % (AUTO) 2.8 %; MEAN CORPUSCULAR HEMOGLOBIN 32.2 pg (27.0-31.0); MEAN CORPUSCULAR HGB CONC 32.9 g/dL (32.0-36.0); MEAN CORPUSCULAR VOLUME 97.7 fL (81.0-99.0); MEAN PLATELET VOLUME 10.8 fL (7.9-10.8); MONOCYTES % (AUTO) 2.9 %; NEUTROPHILS % (AUTO) 91.6 %; PLT - PLATELET COUNT 166 10^3/uL (130-450); RED BLOOD COUNT 3.48 10^6/uL (4.20-5.40); RED CELL DISTRIBUTION WIDTH 13.5 % (12.0-15.0); WHITE BLOOD COUNT 25.2 x10^3/uL (4.8-10.8)
[2021-04-25 07:02] LABS: CALCIUM 8.4 mg/dL (8.5-10.3); CREATININE 1.3 mg/dL (0.4-1.0); POTASSIUM 3.8 mmol/L (3.5-5.0)
[2021-04-25 07:11] LABS: ABNORMAL LYMPHS % (MANUAL) 0 %
[2021-04-25 07:26] LABS: BAND NEUTROPHILS % (MANUAL) 4 %; DIFFERENTIAL COMMENT MANUAL DIFFERENTIAL; EOSINOPHILS # (MANUAL) 0.5 10^3/uL (0-0.7); LYMPHOCYTES # (MANUAL) 0.5 10^3/uL (1.5-3.5); LYMPHOCYTES % (MANUAL) 2 %; NEUTROPHILS # (MANUAL) 23.2 10^3/uL (1.5-6.6); PLATELET ESTIMATE, MANUAL NORMAL (130-450,000) (NORMAL); PLATELET MORPHOLOGY NORMAL APPEARANCE (NORMAL); RBC MORPHOLOGY (MULTIPLE) NORMAL APPEARANCE (NORMAL)
--- NOTE | 2021-04-25 07:30 | PROVIDER PROGRESS NOTE ---
Subjective - Prog Note Date Prog Note Date: 04/25/21 - Subjective Subjective: She still reports feeling pretty miserable overall. Does not feel much better than yesterday. Her right leg is still painful and erythematous. She denies any chest pain and shortness of breath. Current Medications - Current Medications Current Medications: Active Medications Acetaminophen (Acetaminophen 325 Mg Tablet) 650 mg PO Q4HR PRN PRN Reason: Pain 1 to 4 Last Admin: 04/25/21 05:23 Dose: 650 mg Documented by: Ciprofloxacin (Cipro 400 Mg/200 Ml) 400 mg in 200 mls @ 200 mls/hr IV Q12H [facility] Vancomycin HCl 1 gm/Vancomycin HCl 500 mg/ Sodium Chloride 500 mls @ 250 mls/hr IV Q24H [facility] Insulin Aspart (Insulin Aspart 300 Unit/3 Ml Pen) 5 unit SUBQ TIDWM [facility] Insulin Aspart (Insulin Aspart 300 Unit/3 Ml Pen) 1 - 9 unit SUBQ 0800,1200,1700,2100 [facility]; Protocol Last Admin: 04/24/21 22:10 Dose: 1 unit Documented by: Insulin Glargine (Insulin Glargine 300 Unit/3 Ml Pen) 14 unit SUBQ BID [facility] Last Admin: 04/24/21 22:09 Dose: 14 unit Documented by: Metoprolol Tartrate (Metoprolol 5 Mg/5 Ml Vial) 5 mg IVP Q6HR [facility] Last Admin: 04/25/21 05:27 Dose: 5 mg Documented by: Ondansetron HCl (Ondansetron 4 Mg/2 Ml Vial) 4 mg IVP Q6HR PRN PRN Reason: Nausea / Vomiting Ondansetron HCl (Ondansetron Odt 4 Mg Tablet) 4 mg TL Q6HR PRN PRN Reason: Nausea / Vomiting Sodium Chloride (Sodium Chloride Flush 0.9% 10 Ml Syringe) 10 ml IVP PRN PRN PRN Reason: NEEDED PER PROVIDER ORDERS Last Admin: 04/25/21 05:34 Dose: 10 ml Documented by: Sodium Chloride (Sodium Chloride Flush 0.9% 10 Ml Syringe) 10 ml IVP 0100,0900,1700 [facility] Last Admin: 04/25/21 01:40 Dose: 10 ml Documented by: Rosuvastatin Calcium [Crestor] 40 mg ORAL QPM 03/30/16 Furosemide 40 mg PO BID 11/18/17 Insulin Glargine [Lantus Solostar] 14 unit SUBQ BID 11/18/17 Labetalol HCl 200 mg PO BID 11/18/17 Aspirin [Aspirin EC] 81 mg PO DAILY 03/10/19 Insulin Aspart [NovoLOG] 0 - 11 units SQ TID 03/10/19 Losartan Potassium 25 mg PO DAILY 03/10/19 Omeprazole 20 mg PO DAILY 03/10/19 Oxybutynin Chloride 5 mg PO DAILY 03/10/19 Potassium Chloride 20 meq PO TID 03/10/19 Rivaroxaban [Xarelto] 20 mg PO DAILY PM 03/10/19 Objective - Vital Signs/Intake & Output Reviewed Vital Signs: Yes Vital Signs: Vital Signs x48h Temp Pulse Resp BP BP Pulse Ox 04/25/21 06:23 37.0 C 170/50 H 04/25/21 05:27 177/57 H 04/25/21 05:00 37.9 C 78 30 H 177/57 H 97 04/25/21 01:37 72 176/50 H 04/25/21 01:22 73 170/51 H 04/25/21 01:07 70 160/52 H 04/25/21 00:52 71 156/46 H 04/25/21 00:47 71 154/47 H 04/25/21 00:42 72 152/48 H 04/25/21 00:40 37.0 C 72 21 166/49 H 96 04/25/21 00:37 161/43 H Intake & Output: Intake & Output 04/22/21 04/23/21 04/24/21 04/25/21 23:59 23:59 23:59 23:59 Intake Total 1999.000 300 Balance 1999.000 300 - Objective General Appearance: positive: Alert, Mild distress, Other (She still looks ill although improved compared to yesterday. Still is in mild distress.) Eyes Bilateral: positive: Conjunctivae nml ENT: positive: ENT inspection nml, Other (Nasal cannula in place.) Neck: positive: Nml inspection Respiratory: positive: No respiratory distress, Rales. negative: Wheezes Cardiovascular: positive: Systolic murmur. negative: Irregularly irregular, Tachycardia, Bradycardia Abdomen: positive: Non-tender, No distention. negative: Tenderness Skin: positive: Warm, Dry, Other (There is area of erythema over the right lower extremity from the ankle to mid [place] has not improved. Still quite warm and tender to touch. There is a small laceration over her right heel without surrounding erythema.) Extremities: positive: Pedal edema (+1 pitting edema bilateral lower extremities.) Neurologic/Psychiatric: negative: Disoriented to person, Disoriented to place - Lab Results Fish Bones: 04/25/21 06:40 04/25/21 06:40 Other Labs: Lab Results x24hrs 04/25/21 04/25/21 04/25/21 Range/Units 06:40 06:40 06:40 WBC 25.2 H (4.8-10.8) x10^3/uL RBC 3.48 L (4.20-5.40) 10^6/uL Hgb 11.2 L (12.0-16.0) g/dL Hct 34.0 L (37.0-47.0) % MCV 97.7 (81.0-99.0) fL MCH 32.2 H (27.0-31.0) pg MCHC 32.9 (32.0-36.0) g/dL RDW 13.5 (12.0-15.0) % Plt Count 166 (130-450) 10^3/uL MPV 10.8 (7.9-10.8) fL Neut # (Auto) Not Reportable (1.5-6.6) 10^3/uL Lymph # (Auto) Not Reportable (1.5-3.5) 10^3/uL [place] # (Auto) Not Reportable (0.0-1.0) 10^3/uL Eos # (Auto) Not Reportable (0.0-0.7) 10^3/uL Baso # (Auto) Not Reportable (0.0-0.1) 10^3/uL Absolute Nucleated RBC Not Reportable x10^3/uL Total Counted 100 Band Neuts % (Manual) 4 (0 - 10) % Abnorm Lymph % (Manual) 0 % Nucleated RBC % Not Reportable /100WBC Neutrophils # (Manual) 23.2 H (1.5-6.6) 10^3/uL Lymphocytes # (Manual) 0.5 L (1.5-3.5) 10^3/uL Monocytes # (Manual) 1.0 (0.0-1.0) 10^3/uL Eosinophils # (Manual) 0.5 (0-0.7) 10^3/uL Basophils # (Manual) 0.0 (0-0.1) 10^3/uL Differential Comment MANUAL DIFFERENTIAL Platelet Estimate NORMAL (130-450,000) (NORMAL) Platelet Morphology NORMAL APPEARANCE (NORMAL) RBC Morph Micro Appear NORMAL APPEARANCE (NORMAL) ESR (0-30) mm/Hr PT (9.9-12.6) secs INR (0.8-1.2) Sodium 135 (135-145) mmol/L Potassium 3.8 (3.5-5.0) mmol/L Chloride 103 (101-111) mmol/L Carbon Dioxide 24 (21-32) mmol/L Anion Gap 8.0 (6-13) BUN 21 H (6-20) mg/dL Creatinine 1.3 H (0.4-1.0) mg/dL Estimated GFR (MDRD) 40 L (>89) Glucose 173 H (70-100) mg/dL Lactic Acid 2.0 (0.5-2.2) mmol/L Calcium 8.4 L (8.5-10.3) mg/dL Total Bilirubin (0.2-1.0) mg/dL AST (10-42) IU/L ALT (10-60) IU/L Alkaline Phosphatase (42-121) IU/L Troponin I High Sens (2.3-14.8) ng/L C-Reactive Protein (0-1.0) mg/dL B-Natriuretic Peptide (5-100) pg/mL Total Protein (6.7-8.2) g/dL Albumin (3.2-5.5) g/dL Globulin (2.1-4.2) g/dL Albumin/Globulin Ratio (1.0-2.2) Urine Color Urine Clarity (CLEAR) Urine pH (5.0-7.5) PH Ur Specific [place] (1.002-1.030) Urine Protein (NEGATIVE) mg/dL Urine Glucose (UA) (NEGATIVE) mg/dL Urine Ketones (NEGATIVE) mg/dL Urine Occult Blood (NEGATIVE) Urine Nitrite (NEGATIVE) Urine Bilirubin (NEGATIVE) Urine Urobilinogen (NORMAL) E.U./dL Ur Leukocyte Esterase (NEGATIVE) Urine RBC (0-5) /HPF Urine WBC (0-5) /HPF Ur Epithelial Cells (<= Few) /HPF Ur Squamous Epith Cells (<= Few) Urine Bacteria (None Seen) /HPF Urine Culture Comments Nasal Adenovirus (PCR) Nasal B. parapertussis DNA (PCR) Nasal Coronavir 229E PCR Nasal Coronavir HKU1 PCR Nasal Coronavir NL63 PCR Nasal Coronavir OC43 PCR Nasal Enterovir/Rhinovir PCR Nasal Influenza B PCR Nasal Influenza A PCR Nasal Parainfluen 1 PCR Nasal Parainfluen 2 PCR Nasal Parainfluen 3 PCR Nasal Parainfluen 4 PCR Nasal RSV (PCR) Nasal B.pertussis DNA PCR Nasal C.pneumoniae (PCR) Ye Human Metapneumo PCR Nasal M.pneumoniae (PCR) Nasal SARS-CoV-2 (PCR) 04/24/21 04/24/21 04/24/21 Range/Units 18:00 18:00 17:31 WBC (4.8-10.8) x10^3/uL RBC (4.20-5.40) 10^6/uL Hgb (12.0-16.0) g/dL Hct (37.0-47.0) % MCV (81.0-99.0) fL MCH (27.0-31.0) pg MCHC (32.0-36.0) g/dL RDW (12.0-15.0) % Plt Count (130-450) 10^3/uL MPV (7.9-10.8) fL Neut # (Auto) (1.5-6.6) 10^3/uL Lymph # (Auto) (1.5-3.5) 10^3/uL [place] # (Auto) (0.0-1.0) 10^3/uL Eos # (Auto) (0.0-0.7) 10^3/uL Baso # (Auto) (0.0-0.1) 10^3/uL Absolute Nucleated RBC x10^3/uL Total Counted Band Neuts % (Manual) (0 - 10) % Abnorm Lymph % (Manual) % Nucleated RBC % /100WBC Neutrophils # (Manual) (1.5-6.6) 10^3/uL Lymphocytes # (Manual) (1.5-3.5) 10^3/uL Monocytes # (Manual) (0.0-1.0) 10^3/uL Eosinophils # (Manual) (0-0.7) 10^3/uL Basophils # (Manual) (0-0.1) 10^3/uL Differential Comment Platelet Estimate (NORMAL) Platelet Morphology (NORMAL) RBC Morph Micro Appear (NORMAL) ESR (0-30) mm/Hr PT (9.9-12.6) secs INR (0.8-1.2) Sodium (135-145) mmol/L Potassium (3.5-5.0) mmol/L Chloride (101-111) mmol/L Carbon Dioxide (21-32) mmol/L Anion Gap (6-13) BUN (6-20) mg/dL Creatinine (0.4-1.0) mg/dL Estimated GFR (MDRD) (>89) Glucose (70-100) mg/dL Lactic Acid 2.5 H (0.5-2.2) mmol/L Calcium (8.5-10.3) mg/dL Total Bilirubin (0.2-1.0) mg/dL AST (10-42) IU/L ALT (10-60) IU/L Alkaline Phosphatase (42-121) IU/L Troponin I High Sens 323.2 H* (2.3-14.8) ng/L C-Reactive Protein (0-1.0) mg/dL B-Natriuretic Peptide (5-100) pg/mL Total Protein (6.7-8.2) g/dL Albumin (3.2-5.5) g/dL Globulin (2.1-4.2) g/dL Albumin/Globulin Ratio (1.0-2.2) Urine Color YELLOW Urine Clarity CLOUDY (CLEAR) Urine pH 5.5 (5.0-7.5) PH Ur Specific [place] 1.015 (1.002-1.030) Urine Protein 100 H (NEGATIVE) mg/dL Urine Glucose (UA) NEGATIVE (NEGATIVE) mg/dL Urine Ketones NEGATIVE (NEGATIVE) mg/dL Urine Occult Blood SMALL H (NEGATIVE) Urine Nitrite NEGATIVE (NEGATIVE) Urine Bilirubin NEGATIVE (NEGATIVE) Urine Urobilinogen 0.2 (NORMAL) (NORMAL) E.U./dL Ur Leukocyte Esterase LARGE H (NEGATIVE) Urine RBC 6-10 H (0-5) /HPF Urine WBC >25 H (0-5) /HPF Ur Epithelial Cells MOD Transitional H (<= Few) /HPF Ur Squamous Epith Cells MANY Squamous H (<= Few) Urine Bacteria Few (None Seen) /HPF Urine Culture Comments NOT INDICATED Nasal Adenovirus (PCR) Nasal B. parapertussis DNA (PCR) Nasal Coronavir 229E PCR Nasal Coronavir HKU1 PCR Nasal Coronavir NL63 PCR Nasal Coronavir OC43 PCR Nasal Enterovir/Rhinovir PCR Nasal Influenza B PCR Nasal Influenza A PCR Nasal Parainfluen 1 PCR Nasal Parainfluen 2 PCR Nasal Parainfluen 3 PCR Nasal Parainfluen 4 PCR Nasal RSV (PCR) Nasal B.pertussis DNA PCR Nasal C.pneumoniae (PCR) Ye Human Metapneumo PCR Nasal M.pneumoniae (PCR) Nasal SARS-CoV-2 (PCR) 04/24/21 04/24/21 04/24/21 Range/Units 16:49 15:32 15:06 WBC (4.8-10.8) x10^3/uL RBC (4.20-5.40) 10^6/uL Hgb (12.0-16.0) g/dL Hct (37.0-47.0) % MCV (81.0-99.0) fL MCH (27.0-31.0) pg MCHC (32.0-36.0) g/dL RDW (12.0-15.0) % Plt Count (130-450) 10^3/uL MPV (7.9-10.8) fL Neut # (Auto) (1.5-6.6) 10^3/uL Lymph # (Auto) (1.5-3.5) 10^3/uL [place] # (Auto) (0.0-1.0) 10^3/uL Eos # (Auto) (0.0-0.7) 10^3/uL Baso # (Auto) (0.0-0.1) 10^3/uL Absolute Nucleated RBC x10^3/uL Total Counted Band Neuts % (Manual) (0 - 10) % Abnorm Lymph % (Manual) % Nucleated RBC % /100WBC Neutrophils # (Manual) (1.5-6.6) 10^3/uL Lymphocytes # (Manual) (1.5-3.5) 10^3/uL Monocytes # (Manual) (0.0-1.0) 10^3/uL Eosinophils # (Manual) (0-0.7) 10^3/uL Basophils # (Manual) (0-0.1) 10^3/uL Differential Comment Platelet Estimate (NORMAL) Platelet Morphology (NORMAL) RBC Morph Micro Appear (NORMAL) ESR (0-30) mm/Hr PT (9.9-12.6) secs INR (0.8-1.2) Sodium (135-145) mmol/L Potassium (3.5-5.0) mmol/L Chloride (101-111) mmol/L Carbon Dioxide (21-32) mmol/L Anion Gap (6-13) BUN (6-20) mg/dL Creatinine (0.4-1.0) mg/dL Estimated GFR (MDRD) (>89) Glucose (70-100) mg/dL Lactic Acid 2.6 H (0.5-2.2) mmol/L Calcium (8.5-10.3) mg/dL Total Bilirubin (0.2-1.0) mg/dL AST (10-42) IU/L ALT (10-60) IU/L Alkaline Phosphatase (42-121) IU/L Troponin I High Sens 264.8 H* (2.3-14.8) ng/L C-Reactive Protein (0-1.0) mg/dL B-Natriuretic Peptide 1139 H (5-100) pg/mL Total Protein (6.7-8.2) g/dL Albumin (3.2-5.5) g/dL Globulin (2.1-4.2) g/dL Albumin/Globulin Ratio (1.0-2.2) Urine Color Urine Clarity (CLEAR) Urine pH (5.0-7.5) PH Ur Specific [place] (1.002-1.030) Urine Protein (NEGATIVE) mg/dL Urine Glucose (UA) (NEGATIVE) mg/dL Urine Ketones (NEGATIVE) mg/dL Urine Occult Blood (NEGATIVE) Urine Nitrite (NEGATIVE) Urine Bilirubin (NEGATIVE) Urine Urobilinogen (NORMAL) E.U./dL Ur Leukocyte Esterase (NEGATIVE) Urine RBC (0-5) /HPF Urine WBC (0-5) /HPF Ur Epithelial Cells (<= Few) /HPF Ur Squamous Epith Cells (<= Few) Urine Bacteria (None Seen) /HPF Urine Culture Comments Nasal Adenovirus (PCR) Nasal B. parapertussis DNA (PCR) Nasal Coronavir 229E PCR Nasal Coronavir HKU1 PCR Nasal Coronavir NL63 PCR Nasal Coronavir OC43 PCR Nasal Enterovir/Rhinovir PCR Nasal Influenza B PCR Nasal Influenza A PCR Nasal Parainfluen 1 PCR Nasal Parainfluen 2 PCR Nasal Parainfluen 3 PCR Nasal Parainfluen 4 PCR Nasal RSV (PCR) Nasal B.pertussis DNA PCR Nasal C.pneumoniae (PCR) Ye Human Metapneumo PCR Nasal M.pneumoniae (PCR) Nasal SARS-CoV-2 (PCR) 04/24/21 04/24/21 04/24/21 Range/Units 13:31 13:22 13:22 WBC (4.8-10.8) x10^3/uL RBC (4.20-5.40) 10^6/uL Hgb (12.0-16.0) g/dL Hct (37.0-47.0) % MCV (81.0-99.0) fL MCH (27.0-31.0) pg MCHC (32.0-36.0) g/dL RDW (12.0-15.0) % Plt Count (130-450) 10^3/uL MPV (7.9-10.8) fL Neut # (Auto) (1.5-6.6) 10^3/uL Lymph # (Auto) (1.5-3.5) 10^3/uL [place] # (Auto) (0.0-1.0) 10^3/uL Eos # (Auto) (0.0-0.7) 10^3/uL Baso # (Auto) (0.0-0.1) 10^3/uL Absolute Nucleated RBC x10^3/uL Total Counted Band Neuts % (Manual) (0 - 10) % Abnorm Lymph % (Manual) % Nucleated RBC % /100WBC Neutrophils # (Manual) (1.5-6.6) 10^3/uL Lymphocytes # (Manual) (1.5-3.5) 10^3/uL Monocytes # (Manual) (0.0-1.0) 10^3/uL Eosinophils # (Manual) (0-0.7) 10^3/uL Basophils # (Manual) (0-0.1) 10^3/uL Differential Comment Platelet Estimate (NORMAL) Platelet Morphology (NORMAL) RBC Morph Micro Appear (NORMAL) ESR (0-30) mm/Hr PT 38.4 H (9.9-12.6) secs INR 3.8 H (0.8-1.2) Sodium (135-145) mmol/L Potassium (3.5-5.0) mmol/L Chloride (101-111) mmol/L Carbon Dioxide (21-32) mmol/L Anion Gap (6-13) BUN (6-20) mg/dL Creatinine (0.4-1.0) mg/dL Estimated GFR (MDRD) (>89) Glucose (70-100) mg/dL Lactic Acid 2.2 (0.5-2.2) mmol/L Calcium (8.5-10.3) mg/dL Total Bilirubin (0.2-1.0) mg/dL AST (10-42) IU/L ALT (10-60) IU/L Alkaline Phosphatase (42-121) IU/L Troponin I High Sens (2.3-14.8) ng/L C-Reactive Protein < 1.0 (0-1.0) mg/dL B-Natriuretic Peptide (5-100) pg/mL Total Protein (6.7-8.2) g/dL Albumin (3.2-5.5) g/dL Globulin (2.1-4.2) g/dL Albumin/Globulin Ratio (1.0-2.2) Urine Color Urine Clarity (CLEAR) Urine pH (5.0-7.5) PH Ur Specific [place] (1.002-1.030) Urine Protein (NEGATIVE) mg/dL Urine Glucose (UA) (NEGATIVE) mg/dL Urine Ketones (NEGATIVE) mg/dL Urine Occult Blood (NEGATIVE) Urine Nitrite (NEGATIVE) Urine Bilirubin (NEGATIVE) Urine Urobilinogen (NORMAL) E.U./dL Ur Leukocyte Esterase (NEGATIVE) Urine RBC (0-5) /HPF Urine WBC (0-5) /HPF Ur Epithelial Cells (<= Few) /HPF Ur Squamous Epith Cells (<= Few) Urine Bacteria (None Seen) /HPF Urine Culture Comments Nasal Adenovirus (PCR) Nasal B. parapertussis DNA (PCR) Nasal Coronavir 229E PCR Nasal Coronavir HKU1 PCR Nasal Coronavir NL63 PCR Nasal Coronavir OC43 PCR Nasal Enterovir/Rhinovir PCR Nasal Influenza B PCR Nasal Influenza A PCR Nasal Parainfluen 1 PCR Nasal Parainfluen 2 PCR Nasal Parainfluen 3 PCR Nasal Parainfluen 4 PCR Nasal RSV (PCR) Nasal B.pertussis DNA PCR Nasal C.pneumoniae (PCR) Ye Human Metapneumo PCR Nasal M.pneumoniae (PCR) Nasal SARS-CoV-2 (PCR) 04/24/21 04/24/21 04/24/21 Range/Units 13:22 13:22 13:22 WBC (4.8-10.8) x10^3/uL RBC (4.20-5.40) 10^6/uL Hgb (12.0-16.0) g/dL Hct (37.0-47.0) % MCV (81.0-99.0) fL MCH (27.0-31.0) pg MCHC (32.0-36.0) g/dL RDW (12.0-15.0) % Plt Count (130-450) 10^3/uL MPV (7.9-10.8) fL Neut # (Auto) (1.5-6.6) 10^3/uL Lymph # (Auto) (1.5-3.5) 10^3/uL [place] # (Auto) (0.0-1.0) 10^3/uL Eos # (Auto) (0.0-0.7) 10^3/uL Baso # (Auto) (0.0-0.1) 10^3/uL Absolute Nucleated RBC x10^3/uL Total Counted Band Neuts % (Manual) (0 - 10) % Abnorm Lymph % (Manual) % Nucleated RBC % /100WBC Neutrophils # (Manual) (1.5-6.6) 10^3/uL Lymphocytes # (Manual) (1.5-3.5) 10^3/uL Monocytes # (Manual) (0.0-1.0) 10^3/uL Eosinophils # (Manual) (0-0.7) 10^3/uL Basophils # (Manual) (0-0.1) 10^3/uL Differential Comment Platelet Estimate (NORMAL) Platelet Morphology (NORMAL) RBC Morph Micro Appear (NORMAL) ESR 1 (0-30) mm/Hr PT (9.9-12.6) secs INR (0.8-1.2) Sodium (135-145) mmol/L Potassium (3.5-5.0) mmol/L Chloride (101-111) mmol/L Carbon Dioxide (21-32) mmol/L Anion Gap (6-13) BUN (6-20) mg/dL Creatinine (0.4-1.0) mg/dL Estimated GFR (MDRD) (>89) Glucose (70-100) mg/dL Lactic Acid (0.5-2.2) mmol/L Calcium (8.5-10.3) mg/dL Total Bilirubin (0.2-1.0) mg/dL AST (10-42) IU/L ALT (10-60) IU/L Alkaline Phosphatase (42-121) IU/L Troponin I High Sens 72.4 H* (2.3-14.8) ng/L C-Reactive Protein (0-1.0) mg/dL B-Natriuretic Peptide (5-100) pg/mL Total Protein (6.7-8.2) g/dL Albumin (3.2-5.5) g/dL Globulin (2.1-4.2) g/dL Albumin/Globulin Ratio (1.0-2.2) Urine Color Urine Clarity (CLEAR) Urine pH (5.0-7.5) PH Ur Specific [place] (1.002-1.030) Urine Protein (NEGATIVE) mg/dL Urine Glucose (UA) (NEGATIVE) mg/dL Urine Ketones (NEGATIVE) mg/dL Urine Occult Blood (NEGATIVE) Urine Nitrite (NEGATIVE) Urine Bilirubin (NEGATIVE) Urine Urobilinogen (NORMAL) E.U./dL Ur Leukocyte Esterase (NEGATIVE) Urine RBC (0-5) /HPF Urine WBC (0-5) /HPF Ur Epithelial Cells (<= Few) /HPF Ur Squamous Epith Cells (<= Few) Urine Bacteria (None Seen) /HPF Urine Culture Comments Nasal Adenovirus (PCR) NOT DETECTED Nasal B. parapertussis DNA (PCR) NOT DETECTED Nasal Coronavir 229E PCR NOT DETECTED Nasal Coronavir HKU1 PCR NOT DETECTED Nasal Coronavir NL63 PCR NOT DETECTED Nasal Coronavir OC43 PCR NOT DETECTED Nasal Enterovir/Rhinovir PCR NOT DETECTED Nasal Influenza B PCR NOT DETECTED Nasal Influenza A PCR NOT DETECTED Nasal Parainfluen 1 PCR NOT DETECTED Nasal Parainfluen 2 PCR NOT DETECTED Nasal Parainfluen 3 PCR NOT DETECTED Nasal Parainfluen 4 PCR NOT DETECTED Nasal RSV (PCR) NOT DETECTED Nasal B.pertussis DNA PCR NOT DETECTED Nasal C.pneumoniae (PCR) NOT DETECTED Ye Human Metapneumo PCR NOT DETECTED Nasal M.pneumoniae (PCR) NOT DETECTED Nasal SARS-CoV-2 (PCR) NOT DETECTED 04/24/21 04/24/21 Range/Units 13:22 13:22 WBC 15.9 H (4.8-10.8) x10^3/uL RBC 3.96 L (4.20-5.40) 10^6/uL Hgb 12.5 (12.0-16.0) g/dL Hct 38.9 (37.0-47.0) % MCV 98.2 (81.0-99.0) fL MCH 31.6 H (27.0-31.0) pg MCHC 32.1 (32.0-36.0) g/dL RDW 13.1 (12.0-15.0) % Plt Count 206 (130-450) 10^3/uL MPV 10.9 H (7.9-10.8) fL Neut # (Auto) 14.8 H (1.5-6.6) 10^3/uL Lymph # (Auto) 0.4 L (1.5-3.5) 10^3/uL [place] # (Auto) 0.5 (0.0-1.0) 10^3/uL Eos # (Auto) 0.1 (0.0-0.7) 10^3/uL Baso # (Auto) 0.1 (0.0-0.1) 10^3/uL Absolute Nucleated RBC 0.00 x10^3/uL Total Counted Band Neuts % (Manual) (0 - 10) % Abnorm Lymph % (Manual) % Nucleated RBC % 0.0 /100WBC Neutrophils # (Manual) (1.5-6.6) 10^3/uL Lymphocytes # (Manual) (1.5-3.5) 10^3/uL Monocytes # (Manual) (0.0-1.0) 10^3/uL Eosinophils # (Manual) (0-0.7) 10^3/uL Basophils # (Manual) (0-0.1) 10^3/uL Differential Comment Platelet Estimate (NORMAL) Platelet Morphology (NORMAL) RBC Morph Micro Appear (NORMAL) ESR (0-30) mm/Hr PT (9.9-12.6) secs INR (0.8-1.2) Sodium 137 (135-145) mmol/L Potassium 3.1 L (3.5-5.0) mmol/L Chloride 99 L (101-111) mmol/L Carbon Dioxide 27 (21-32) mmol/L Anion Gap 11.0 (6-13) BUN 19 (6-20) mg/dL Creatinine 0.9 (0.4-1.0) mg/dL Estimated GFR (MDRD) 61 L (>89) Glucose 277 H (70-100) mg/dL Lactic Acid (0.5-2.2) mmol/L Calcium 9.0 (8.5-10.3) mg/dL Total Bilirubin 1.0 (0.2-1.0) mg/dL AST 22 (10-42) IU/L ALT 23 (10-60) IU/L Alkaline Phosphatase 48 (42-121) IU/L Troponin I High Sens (2.3-14.8) ng/L C-Reactive Protein (0-1.0) mg/dL B-Natriuretic Peptide (5-100) pg/mL Total Protein 7.1 (6.7-8.2) g/dL Albumin 3.9 (3.2-5.5) g/dL Globulin 3.2 (2.1-4.2) g/dL Albumin/Globulin Ratio 1.2 (1.0-2.2) Urine Color Urine Clarity (CLEAR) Urine pH (5.0-7.5) PH Ur Specific [place] (1.002-1.030) Urine Protein (NEGATIVE) mg/dL Urine Glucose (UA) (NEGATIVE) mg/dL Urine Ketones (NEGATIVE) mg/dL Urine Occult Blood (NEGATIVE) Urine Nitrite (NEGATIVE) Urine Bilirubin (NEGATIVE) Urine Urobilinogen (NORMAL) E.U./dL Ur Leukocyte Esterase (NEGATIVE) Urine RBC (0-5) /HPF Urine WBC (0-5) /HPF Ur Epithelial Cells (<= Few) /HPF Ur Squamous Epith Cells (<= Few) Urine Bacteria (None Seen) /HPF Urine Culture Comments Nasal Adenovirus (PCR) Nasal B. parapertussis DNA (PCR) Nasal Coronavir 229E PCR Nasal Coronavir HKU1 PCR Nasal Coronavir NL63 PCR Nasal Coronavir OC43 PCR Nasal Enterovir/Rhinovir PCR Nasal Influenza B PCR Nasal Influenza A PCR Nasal Parainfluen 1 PCR Nasal Parainfluen 2 PCR Nasal Parainfluen 3 PCR Nasal Parainfluen 4 PCR Nasal RSV (PCR) Nasal B.pertussis DNA PCR Nasal C.pneumoniae (PCR) Ye Human Metapneumo PCR Nasal M.pneumoniae (PCR) Nasal SARS-CoV-2 (PCR) ABX Reporting Has patient been on IV antibiotics over the past 48 hours?: Yes Sepsis Event Note (H) - Evaluation Current Stage of Sepsis: Severe sepsis Possible source of Sepsis: positive: Skin/soft tissue - Sepsis Criteria Sepsis Criteria: Recorded Temperature greater than 38.3C or Less than 36C, Recorded Heart Rate greater than 90 bpm, Respiratory: Increasing oxygen requirements, WBC count greater than 12,000 or less than 4000, [employer] CHECKER: altered consciousness (unrelated to primary neuro pathology), Metabolic: lactate > 2 mmol/L Assessment/Plan - Problem List (1) Severe sepsis Impression: This is improving. Her white count is increased today to 25,000 but her lactic acid is within normal limits and she is actually hypertensive today. Her tachycardia has also resolved. This is secondary to the right lower extremity cellulitis. We will continue her on the vancomycin and ciprofloxacin. Initial blood cultures are growing Streptococcus we will follow these up. Continue with daily CBC. We will hold off on further IV hydration given lactic acid is now normal and the fact that she also appears to be in heart failure. (2) Cellulitis of right lower extremity Impression: This is the cause of her sepsis and bacteremia. Her right lower extremity has n ot shown much improvement with regards to erythema or pain. Suspect this is likely Streptococcus cellulitis given her blood cultures are growing Streptococcus. We will keep her on vancomycin and ciprofloxacin until we have sensitivities given her multiple allergies. (3) Bacteremia due to Streptococcus Impression: This appears to be secondary to the right lower extremity cellulitis. Initial blood cultures are growing Streptococcus but we are awaiting speciation and sensitivities. She remains on vancomycin and ciprofloxacin. An echocardiogram has already been ordered given elevated troponin but this will also assess for potential endocarditis. Follow-up blood cultures and we will look to repeat blood cultures tomorrow after 48 hours of IV antibiotics. (4) Acute on chronic diastolic CHF (congestive heart failure) Impression: She does appear to be in acute on chronic heart failure given her BNP is eleva eric and x-ray was suggestive of pulmonary edema. She also has lower extremity edema which was progressive prior to this hospitalization. We did not diurese her yesterday given the sepsis and the fact that her lactic acid was elevated. She also did not appear to be in any distress from a respiratory standpoint. She remains on 1 to 2 L of oxygen today and she denies any symptoms of dyspnea. We will likely look to begin diuresis tomorrow. We will hold off on further IV hydration.. Follow-up echocardiogram. (5) Elevated troponin Impression: Her troponin peaked at a little over 300 but is not trending down. We suspect this is likely demand ischemia from the severe sepsis. She has not had any chest pain and her EKG had nonspecific changes. We will continue aspirin and her Coumadin although her INR is elevated at 3.8. An echocardiogram has also been ordered for today and we will follow this up. (6) Atrial fibrillation with RVR Impression: Her heart rate is much better controlled after initiating Lopressor 5 mg IV every 6 hours. She is now in a paced rhythm. We will continue Lopressor IV and switch her to an oral beta-noemi once her med rec is completed this morning. Her INR is elevated at 3.8 and we will try this on a daily basis and resume Coumadin when appropriate. (7) Coronary artery disease Impression: She has known history of coronary artery disease with CABG about 4 years ago. Her elevated troponin as mentioned above appears to be demand ischemia from the sepsis. We will continue her home medications once the med rec is complete. (8) Insulin dependent diabetes mellitus Impression: Her blood glucose is improved today to the 170s after we resumed Lantus twice daily along with NovoLog 5 units with meals. We will continue this regimen plus sliding scale. Continue carb controlled diet. (9) History of pacemaker Impression: Stable. She is currently in a paced rhythm. If her bacteremia is persistent despite IV antibiotics then we may need to transfer to a higher level of care as she then may have bacteremic seeding.
[2021-04-25] MEDS: INSULIN ASPART 300 UNIT/3 ML PEN SUBQ SCH ×7 (08:01→21:22)
[2021-04-25] MEDS: ASPIRIN EC 81 MG TABLET PO SCH (09:01)
[2021-04-25] MEDS: CIPROFLOXACIN 400 MG/200 ML 400 MG/200 ML BAG IV SCH ×2 (09:01→20:44)
[2021-04-25] MEDS: INSULIN GLARGINE 300 UNIT/3 ML PEN SUBQ SCH (09:02)
--- NOTE | 2021-04-25 10:19 | PHARMACY PROGRESS NOTE ---
- Best Possible Medication History Admit Date and Time: 04/24/21 1733 Processed by: Pharmacy Medication History completed: Yes Patient Interview: Completed Secondary Source(s): Written medication list (PATIENT ABLE TO CONFIRM HOME MEDICATIONS), Physician records, Pharmacy records, Insurance records As the person ultimately responsible for medication therapy, providers are able to order a medication from an existing home medication list in [facility] via the "Reconcile Routine" prior to Confirmation of that medication by director of sales support. Such practice is discouraged except when the physician, in their clinical judgment, deems that a medical need exists for a medication without regard to previous use.
[2021-04-25] MEDS: VANCOMYCIN INJ 1 GM, VANCOMYCIN INJ 500 MG in SODIUM CHLORIDE 0.9% 500 ML IV SCH (14:53)
[2021-04-26] MEDS: METOPROLOL 5 MG/5 ML VIAL IVP SCH ×2 (00:48→06:08)
[2021-04-26] MEDS: SODIUM CHLORIDE FLUSH 0.9% 10 ML SYRINGE IVP SCH ×3 (00:50→16:36)
[2021-04-26] MEDS: ACETAMINOPHEN 325 MG TABLET PO PRN ×4 (00:57→20:42)
[2021-04-26] MEDS: SODIUM CHLORIDE FLUSH 0.9% 10 ML SYRINGE IVP PRN (06:08)
--- NOTE | 2021-04-26 07:27 | PROVIDER PROGRESS NOTE ---
Subjective - Prog Note Date Prog Note Date: 04/26/21 - Subjective Subjective: She states her right lower extremity pain is much worse today. She also feels that the erythema has not improved. She does not want any opiates for pain control. She prefers to just take Tylenol alone. She does not feel short of breath. Current Medications - Current Medications Current Medications: Active Medications Acetaminophen (Acetaminophen 325 Mg Tablet) 650 mg PO Q4HR PRN PRN Reason: Pain 1 to 4 Last Admin: 04/26/21 06:12 Dose: 650 mg Documented by: Aspirin (Aspirin Ec 81 Mg Tablet) 81 mg PO DAILY COUNT INCLUDES THE [facility] Last Admin: 04/25/21 09:01 Dose: 81 mg Documented by: Vancomycin HCl 1 gm/Vancomycin HCl 500 mg/ Sodium Chloride 500 mls @ 250 mls/hr IV Q24H COUNT INCLUDES THE [facility] Last Infusion: 04/25/21 16:53 Dose: Infused Documented by: Insulin Aspart (Insulin Aspart 300 Unit/3 Ml Pen) 5 unit SUBQ TIDWM COUNT INCLUDES THE [facility] Last Admin: 04/25/21 16:45 Dose: 5 unit Documented by: Insulin Aspart (Insulin Aspart 300 Unit/3 Ml Pen) 1 - 9 unit SUBQ 0800,1200,1700,2100 COUNT INCLUDES THE [facility]; Protocol Last Admin: 04/25/21 21:22 Dose: Not Given Documented by: Insulin Glargine (Insulin Glargine 300 Unit/3 Ml Pen) 14 unit SUBQ DAILY COUNT INCLUDES THE [facility] Metoprolol Tartrate (Metoprolol 5 Mg/5 Ml Vial) 5 mg IVP Q6HR COUNT INCLUDES THE [facility] Last Admin: 04/26/21 06:08 Dose: 5 mg Documented by: Ondansetron HCl (Ondansetron 4 Mg/2 Ml Vial) 4 mg IVP Q6HR PRN PRN Reason: Nausea / Vomiting Ondansetron HCl (Ondansetron Odt 4 Mg Tablet) 4 mg TL Q6HR PRN PRN Reason: Nausea / Vomiting Sodium Chloride (Sodium Chloride Flush 0.9% 10 Ml Syringe) 10 ml IVP PRN PRN PRN Reason: NEEDED PER PROVIDER ORDERS Last Admin: 04/26/21 06:08 Dose: 10 ml Documented by: Sodium Chloride (Sodium Chloride Flush 0.9% 10 Ml Syringe) 10 ml IVP 0100,0900,1700 COUNT INCLUDES THE [facility] Last Admin: 04/26/21 00:50 Dose: 10 ml Documented by: Furosemide 40 mg PO BID 11/18/17 Insulin Glargine [Lantus Solostar] 18 unit SUBQ BID 11/18/17 Labetalol HCl 200 mg PO DAILY 11/18/17 Insulin Aspart [NovoLOG] 0 - 11 units SQ QID 03/10/19 Losartan Potassium 25 mg PO QPM 03/10/19 Omeprazole 20 mg PO DAILY 03/10/19 Oxybutynin Chloride 5 mg PO BID 03/10/19 Alendronate [Fosamax] 70 mg PO Q7D 04/25/21 Labetalol HCl 100 mg PO QPM 04/25/21 Warfarin [Coumadin] 2.5 mg PO SUTUTHSA 04/25/21 Warfarin [Coumadin] 5 mg PO MOWEFR 04/25/21 Objective - Vital Signs/Intake & Output Reviewed Vital Signs: Yes Vital Signs: Vital Signs x48h Temp Pulse Resp BP BP Pulse Ox 04/26/21 06:58 37.3 C 70 20 165/50 H 97 04/26/21 06:08 173/55 H 04/26/21 05:00 37.8 C 70 24 173/55 H 96 04/26/21 01:42 37.3 C 73 154/60 H 04/26/21 00:48 182/60 H 04/26/21 00:42 37.2 C 73 22 182/60 H 98 Intake & Output: Intake & Output 04/23/21 04/24/21 04/25/21 04/26/21 23:59 23:59 23:59 23:59 Intake Total 2710 Output Total 550 725 Balance 2160 -725 - Objective General Appearance: positive: No acute distress, Alert Eyes Bilateral: positive: Normal inspection, Conjunctivae nml ENT: positive: ENT inspection nml, Other (Nasal cannula in place.) Neck: positive: Nml inspection Respiratory: positive: No respiratory distress. negative: Wheezes, Rales Cardiovascular: positive: Systolic murmur. negative: Irregularly irregular, Tachycardia, Bradycardia Abdomen: positive: Non-tender, No distention. negative: Tenderness Skin: positive: Warm, Dry, Other (The area of erythema has not resided and is s till quite warm and tender to touch from the right ankle to the mid [place].) Extremities: positive: Pedal edema (+1 pitting edema bilateral lower extremities.) Neurologic/Psychiatric: negative: Disoriented to person, Disoriented to place - Lab Results Fish Bones: 04/25/21 06:40 04/25/21 06:40 Other Labs: Lab Results x24hrs 04/25/21 04/25/21 04/25/21 Range/Units 10:15 06:40 06:40 Neut # (Auto) Not Reportable Lymph # (Auto) Not Reportable [place] # (Auto) Not Reportable Eos # (Auto) Not Reportable Baso # (Auto) Not Reportable Absolute Nucleated RBC Not Reportable Total Counted 100 Band Neuts % (Manual) 4 (0 - 10) % Abnorm Lymph % (Manual) 0 % Nucleated RBC % Not Reportable Neutrophils # (Manual) 23.2 H (1.5-6.6) 10^3/uL Lymphocytes # (Manual) 0.5 L (1.5-3.5) 10^3/uL Monocytes # (Manual) 1.0 (0.0-1.0) 10^3/uL Eosinophils # (Manual) 0.5 (0-0.7) 10^3/uL Basophils # (Manual) 0.0 (0-0.1) 10^3/uL Differential Comment MANUAL DIFFERENTIAL Platelet Estimate NORMAL (130-450,000) (NORMAL) Platelet Morphology NORMAL APPEARANCE (NORMAL) RBC Morph Micro Appear NORMAL APPEARANCE (NORMAL) Lactic Acid 1.9 (0.5-2.2) mmol/L Troponin I High Sens 195.3 H* (2.3-14.8) ng/L ABX Reporting Has patient been on IV antibiotics over the past 48 hours?: Yes Sepsis Event Note (H) - Evaluation Current Stage of Sepsis: Severe sepsis Possible source of Sepsis: positive: Skin/soft tissue - Sepsis Criteria Sepsis Criteria: Recorded Temperature greater than 38.3C or Less than 36C, Recorded Heart Rate greater than 90 bpm, Respiratory: Increasing oxygen requirements, WBC count greater than 12,000 or less than 4000, BOX PERSON: altered consciousness (unrelated to primary neuro pathology), Metabolic: lactate > 2 mmol/L Assessment/Plan - Problem List (2) Cellulitis of right lower extremity Impression: This is not improved. Her erythema has not resided and her pain is worse today. Labs are still pending as she has been a difficult stick and the PICC line is being placed to obtain frequent blood draws. We will keep her on vancomycin IV given her penicillin allergy. Blood cultures grew strep group C suspect is likely the cause of her lower extremity cellulitis. Although suspicion for a DVT, we will order a duplex for further evaluation. If she continues have significant pain without improvement and will consider a CT for further evaluation. (3) Bacteremia due to Streptococcus Impression: Initial blood cultures grew strep group C which is likely secondary to the right lower extremity cellulitis. We are repeating blood cultures today. She remains on vancomycin IV given her penicillin allergy although we will consider ceftriaxone given she is unsure of that allergy and her penicillin allergy is hives. She has also been a difficult stick for labs and we will be placing a PICC line today. (4) Acute on chronic diastolic CHF (congestive heart failure) Impression: She does appear to be in acute on chronic heart failure given elevated BNP and in fact her x-ray revealed pulmonary vascular congestion. Although she is not dyspneic, she continues to require 1 to 2 L of oxygen. Her echocardiogram revealed grade 2 diastolic dysfunction. Once we have her labs back from this morning, we will likely give her a dose of Lasix 40 mg IV given she appears improved from a sepsis standpoint. Continue with daily weights and I's and O's. (5) Elevated troponin Impression: Her troponin peaked at a little over 300 but is not trending down. We suspect this is likely demand ischemia from the severe sepsis. She has not had any chest pain and her EKG had nonspecific changes. Echocardiogram revealed no obvious wall motion abnormalities. We are continuing her aspirin and Coumadin. (6) Atrial fibrillation with RVR Impression: She is rate controlled and in a paced rhythm at the moment. We we will resume her home labetalol. INR for today is pending but we will continue her Coumadin. (7) Coronary artery disease Impression: She has known history of coronary artery disease with CABG about 4 years ago. Her elevated troponin as mentioned above appears to be demand ischemia from the sepsis. We are continuing her home medications. (8) Insulin dependent diabetes mellitus Impression: Her blood glucose is well controlled. We will continue Lantus 14 units daily along with 5 units along with meals plus sliding scale. Continue carb controlled diet. (9) History of pacemaker Impression: Stable. She is currently in a paced rhythm. If her bacteremia is persistent despite IV antibiotics then we may need to transfer to a higher level of care as she then may have bacteremic seeding. (10) Aortic stenosis Impression: Echocardiogram revealed moderate aortic stenosis with an aortic valve area of 1.27 cm. 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
[2021-04-26] MEDS: INSULIN GLARGINE 300 UNIT/3 ML PEN SUBQ SCH (08:46)
[2021-04-26] MEDS: INSULIN ASPART 300 UNIT/3 ML PEN SUBQ SCH ×7 (08:47→20:51)
[2021-04-26] MEDS: ASPIRIN EC 81 MG TABLET PO SCH (08:48)
[2021-04-26] MEDS: LABETALOL 100 MG TABLET PO SCH ×2 (11:31→20:43)
--- NOTE | 2021-04-26 12:55 | ANESTHESIA PROCEDURE NOTE ---
Anesth Central Line Template - Central Line Central Line Preparation: Consent Obtained, Time out completed, Ultrasound used, Sterile prep and drape Central line location: Right Basilic Central line type: PICC Double Lumen Central line catheter tip site resides: Superior vena cava (SVC) Central line aftercare: Secured (statlock), Placement confirmed, No complications, Bundle checklist complete, Pt tolerated well
--- NOTE | 2021-04-26 12:56 | XRAY Report ---
PROCEDURE: Chest for Line Placement INDICATIONS: picc line placement TECHNIQUE: One view of the chest was acquired. COMPARISON: 04/24/2021 FINDINGS: Surgical changes and devices: Dual-lead cardiac pacer and right PICC line, with the tip projecting in the upper SVC.. Lungs and pleura: No pleural effusions or pneumothorax. Scattered atelectasis in the lung bases. Dif fuse groundglass opacities in the prior study have mildly improved. There is mildly increased retroca rdiac opacity Mediastinum: Mediastinal contours appear normal. Heart size is normal. Bones and chest wall: No suspicious bony lesions. Overlying soft tissues appear unremarkable. IMPRESSION: Right PICC line with the tip projecting in the upper SVC. Mild interval improvement in diffuse bilateral groundglass opacities although no complete resolution. Increasing retrocardiac consolidative opacity. Reviewed by: Yared Cardona MD on 04/26/2021 12:55 PM PDT Approved by: Yared Cardona MD on 04/26/2021 12:55 PM PDT Station ID: [id number]
[2021-04-26 13:15] LABS: BASOPHILS # (AUTO) 0.1 10^3/uL (0.0-0.1); BASOPHILS % (AUTO) 0.3 %; EOSINOPHILS % (AUTO) 0.1 %; HGB - HEMOGLOBIN 10.4 g/dL (12.0-16.0); LYMPHOCYTES # (AUTO) 0.6 10^3/uL (1.5-3.5); LYMPHOCYTES % (AUTO) 3.5 %; MEAN CORPUSCULAR HEMOGLOBIN 32.2 pg (27.0-31.0); MEAN CORPUSCULAR HGB CONC 32.5 g/dL (32.0-36.0); MEAN CORPUSCULAR VOLUME 99.1 fL (81.0-99.0); MEAN PLATELET VOLUME 10.8 fL (7.9-10.8); MONOCYTES # (AUTO) 0.6 10^3/uL (0.0-1.0); MONOCYTES % (AUTO) 3.4 %; NEUTROPHILS # (AUTO) 15.2 10^3/uL (1.5-6.6); NEUTROPHILS % (AUTO) 91.9 %; PLT - PLATELET COUNT 141 10^3/uL (130-450); RED BLOOD COUNT 3.23 10^6/uL (4.20-5.40); RED CELL DISTRIBUTION WIDTH 13.5 % (12.0-15.0); WHITE BLOOD COUNT 16.6 x10^3/uL (4.8-10.8)
[2021-04-26 13:18] LABS: INR 2.4 (0.8-1.2); PT - PROTHROMBIN TIME 25.7 secs (9.9-12.6)
[2021-04-26 13:22] LABS: CALCIUM 7.9 mg/dL (8.5-10.3); CREATININE 1.2 mg/dL (0.4-1.0); MAGNESIUM 1.6 mg/dL (1.7-2.8); POTASSIUM 3.6 mmol/L (3.5-5.0); VANCOMYCIN,TROUGH 11.1 ug/mL (10.0-20.0)
[2021-04-26] MEDS ORDERED: FUROSEMIDE 40 MG/4 ML VIAL IVP STA (13:38)
[2021-04-26] MEDS: PANTOPRAZOLE 40 MG TABLET PO SCH (13:39)
[2021-04-26] MEDS: VANCOMYCIN INJ 1 GM, VANCOMYCIN INJ 500 MG in SODIUM CHLORIDE 0.9% 500 ML IV SCH (14:08)
[2021-04-26] MEDS: MAGNESIUM OXIDE 400 MG TABLET PO SCH (14:08)
[2021-04-27] MEDS: SODIUM CHLORIDE FLUSH 0.9% 10 ML SYRINGE IVP SCH ×3 (00:25→16:30)
[2021-04-27] MEDS: SODIUM CHLORIDE FLUSH 0.9% 10 ML SYRINGE IVP PRN ×3 (00:25→13:52)
[2021-04-27] MEDS: ACETAMINOPHEN 325 MG TABLET PO PRN ×5 (02:31→22:11)
[2021-04-27 05:17] LABS: BASOPHILS # (AUTO) 0.1 10^3/uL (0.0-0.1); BASOPHILS % (AUTO) 0.4 %; EOSINOPHILS # (AUTO) 0.1 10^3/uL (0.0-0.7); EOSINOPHILS % (AUTO) 0.5 %; HCT - HEMATOCRIT 31.5 % (37.0-47.0); HGB - HEMOGLOBIN 10.2 g/dL (12.0-16.0); LYMPHOCYTES # (AUTO) 0.6 10^3/uL (1.5-3.5); LYMPHOCYTES % (AUTO) 4.9 %; MEAN CORPUSCULAR HEMOGLOBIN 31.7 pg (27.0-31.0); MEAN CORPUSCULAR HGB CONC 32.4 g/dL (32.0-36.0); MEAN CORPUSCULAR VOLUME 97.8 fL (81.0-99.0); MEAN PLATELET VOLUME 11.1 fL (7.9-10.8); MONOCYTES # (AUTO) 0.7 10^3/uL (0.0-1.0); MONOCYTES % (AUTO) 5.7 %; NEUTROPHILS # (AUTO) 11.4 10^3/uL (1.5-6.6); PLT - PLATELET COUNT 136 10^3/uL (130-450); RED BLOOD COUNT 3.22 10^6/uL (4.20-5.40); RED CELL DISTRIBUTION WIDTH 13.6 % (12.0-15.0)
[2021-04-27 05:19] LABS: INR 2.3 (0.8-1.2); PT - PROTHROMBIN TIME 23.9 secs (9.9-12.6)
[2021-04-27 05:26] LABS: CALCIUM 7.8 mg/dL (8.5-10.3); CREATININE 1.2 mg/dL (0.4-1.0); POTASSIUM 3.5 mmol/L (3.5-5.0)
[2021-04-27] MEDS: PANTOPRAZOLE 40 MG TABLET PO SCH (06:09)
--- NOTE | 2021-04-27 07:20 | PROVIDER PROGRESS NOTE ---
Subjective - Prog Note Date Prog Note Date: 04/27/21 - Subjective Subjective: She complains of mouth pain today and feels like she is developing ulcers in her mouth. Her right leg pain is not improved. She also feels like the erythema has spread to the back of her right leg. Denies any shortness of breath. Current Medications - Current Medications Current Medications: Active Medications Acetaminophen (Acetaminophen 325 Mg Tablet) 650 mg PO Q4HR PRN PRN Reason: Pain 1 to 4 Last Admin: 04/27/21 02:31 Dose: 650 mg Documented by: Aspirin (Aspirin Ec 81 Mg Tablet) 81 mg PO DAILY [facility] Last Admin: 04/26/21 08:48 Dose: 81 mg Documented by: Vancomycin HCl 1 gm/Vancomycin HCl 500 mg/ Sodium Chloride 500 mls @ 250 mls/hr IV Q24H [facility] Last Infusion: 04/26/21 16:36 Dose: Infused Documented by: Ceftriaxone Sodium 2 gm/ (Sodium Chloride) 100 mls @ 200 mls/hr IV DAILY [facility] Insulin Aspart (Insulin Aspart 300 Unit/3 Ml Pen) 5 unit SUBQ TIDWM [facility] Last Admin: 04/26/21 17:02 Dose: 5 unit Documented by: Insulin Aspart (Insulin Aspart 300 Unit/3 Ml Pen) 1 - 9 unit SUBQ 0 800,1200,1700,2100 [facility]; Protocol Last Admin: 04/26/21 20:51 Dose: Not Given Documented by: Insulin Glargine (Insulin Glargine 300 Unit/3 Ml Pen) 14 unit SUBQ DAILY [facility] Last Admin: 04/26/21 08:46 Dose: 14 unit Documented by: Labetalol HCl (Labetalol 100 Mg Tablet) 200 mg PO DAILY [facility] Last Admin: 04/26/21 11:31 Dose: 200 mg Documented by: Labetalol HCl (Labetalol 100 Mg Tablet) 100 mg PO QPM [facility] Last Admin: 04/26/21 20:43 Dose: 100 mg Documented by: Magnesium Oxide (Magnesium Oxide 400 Mg Tablet) 400 mg PO DAILYWM [facility] Last Admin: 04/26/21 14:08 Dose: 400 mg Documented by: Multi-Ingredient Mouthwash/Gargle (Magic Mouthwash (Nystatin) 120 Ml Bottle) 30 ml PO Q4H PRN PRN Reason: Mouth Sore Pain Nystatin (Nystatin 935606 Units/5 Ml Udc) 5 ml PO QID [facility] Ondansetron HCl (Ondansetron 4 Mg/2 Ml Vial) 4 mg IVP Q6HR PRN PRN Reason: Nausea / Vomiting Ondansetron HCl (Ondansetron Odt 4 Mg Tablet) 4 mg TL Q6HR PRN PRN Reason: Nausea / Vomiting Pantoprazole Sodium (Pantoprazole 40 Mg Tablet) 40 mg PO QDAC [facility] Last Admin: 04/27/21 06:09 Dose: 40 mg Documented by: Sodium Chloride (Sodium Chloride Flush 0.9% 10 Ml Syringe) 10 ml IVP PRN PRN PRN Reason: NEEDED PER PROVIDER ORDERS Last Admin: 04/27/21 00:25 Dose: 10 ml Documented by: Sodium Chloride (Sodium Chloride Flush 0.9% 10 Ml Syringe) 10 ml IVP 0100,0900,1700 [facility] Last Admin: 04/27/21 00:25 Dose: 10 ml Documented by: Warfarin Sodium (Warfarin 5 Mg Tablet) 5 mg PO MoWeFr@0900 [facility] Warfarin Sodium (Warfarin 2.5 Mg Tablet) 2.5 mg PO SuTuThSa@0900 [facility] Furosemide 40 mg PO BID 11/18/17 Insulin Glargine [Lantus Solostar] 18 unit SUBQ BID 11/18/17 Labetalol HCl 200 mg PO DAILY 11/18/17 Insulin Aspart [NovoLOG] 0 - 11 units SQ QID 03/10/19 Losartan Potassium 25 mg PO QPM 03/10/19 Omeprazole 20 mg PO DAILY 03/10/19 Oxybutynin Chloride 5 mg PO BID 03/10/19 Alendronate [Fosamax] 70 mg PO Q7D 04/25/21 Labetalol HCl 100 mg PO QPM 04/25/21 Warfarin [Coumadin] 2.5 mg PO SUTUTHSA 04/25/21 Warfarin [Coumadin] 5 mg PO MOWEFR 04/25/21 Objective - Vital Signs/Intake & Output Reviewed Vital Signs: Yes Vital Signs: Vital Signs x48h Temp Pulse Resp BP Pulse Ox 04/27/21 04:50 37.1 C 94 20 127/73 92 04/27/21 00:10 36.9 C 97 20 105/62 94 Intake & Output: Intake & Output 04/24/21 04/25/21 04/26/21 04/27/21 23:59 23:59 23:59 23:59 Intake Total 2710 1340 300 Output Total 313 6739 1036 Balance 1198 -7339 -800 - Objective General Appearance: positive: Alert, Mild distress Eyes Bilateral: positive: Normal inspection, Conjunctivae nml ENT: positive: Oral lesions (She has a small 1 cm ulceration over the right side of her mouth. There is mild thrush noted over the tongue.) Neck: positive: Nml inspection Respiratory: positive: No respiratory distress. negative: Wheezes, Rales Cardiovascular: positive: Irregularly irregular, Systolic murmur. negative: Tachycardia, Bradycardia Abdomen: positive: Non-tender, No distention. negative: Tenderness Skin: positive: Warm, Dry, Other (The area of erythema from the right ankle to the mid [place] has now progressed superiorly or inferiorly. It is more prominent over the posterior aspect of the right lower extremity although still quite minimal. automatic bandsaw tender and warm to touch.) Extremities: positive: Pedal edema (Trace edema in the bilateral lower extremity), Other (Although her right knee has no erythema, it is tender to palpation today.) Neurologic/Psychiatric: negative: Disoriented to person, Disoriented to place - Lab Results Fish Bones: 04/27/21 04:47 04/27/21 04:47 Other Labs: Lab Results x24hrs 04/27/21 04/27/21 04/27/21 Range/Units 04:47 04:47 04:47 WBC 13.0 H (4.8-10.8) x10^3/uL RBC 3.22 L (4.20-5.40) 10^6/uL Hgb 10.2 L (12.0-16.0) g/dL Hct 31.5 L (37.0-47.0) % MCV 97.8 (81.0-99.0) fL MCH 31.7 H (27.0-31.0) pg MCHC 32.4 (32.0-36.0) g/dL RDW 13.6 (12.0-15.0) % Plt Count 136 (130-450) 10^3/uL MPV 11.1 H (7.9-10.8) fL Neut # (Auto) 11.4 H (1.5-6.6) 10^3/uL Lymph # (Auto) 0.6 L (1.5-3.5) 10^3/uL [place] # (Auto) 0.7 (0.0-1.0) 10^3/uL Eos # (Auto) 0.1 (0.0-0.7) 10^3/uL Baso # (Auto) 0.1 (0.0-0.1) 10^3/uL Absolute Nucleated RBC 0.00 x10^3/uL Nucleated RBC % 0.0 /100WBC PT 23.9 H (9.9-12.6) secs INR 2.3 H (0.8-1.2) Sodium 135 (135-145) mmol/L Potassium 3.5 (3.5-5.0) mmol/L Chloride 100 L (101-111) mmol/L Carbon Dioxide 25 (21-32) mmol/L Anion Gap 10.0 (6-13) BUN 24 H (6-20) mg/dL Creatinine 1.2 H (0.4-1.0) mg/dL Estimated GFR (MDRD) 44 L (>89) Glucose 135 H (70-100) mg/dL Calcium 7.8 L (8.5-10.3) mg/dL Magnesium (1.7-2.8) mg/dL Last Dose Date Last Dose Time Vancomycin Trough (10.0-20.0) ug/mL 04/26/21 04/26/21 04/26/21 Range/Units 13:04 13:04 13:04 WBC 16.6 H (4.8-10.8) x10^3/uL RBC 3.23 L (4.20-5.40) 10^6/uL Hgb 10.4 L (12.0-16.0) g/dL Hct 32.0 L (37.0-47.0) % MCV 99.1 H (81.0-99.0) fL MCH 32.2 H (27.0-31.0) pg MCHC 32.5 (32.0-36.0) g/dL RDW 13.5 (12.0-15.0) % Plt Count 141 (130-450) 10^3/uL MPV 10.8 (7.9-10.8) fL Neut # (Auto) 15.2 H (1.5-6.6) 10^3/uL Lymph # (Auto) 0.6 L (1.5-3.5) 10^3/uL [place] # (Auto) 0.6 (0.0-1.0) 10^3/uL Eos # (Auto) 0.0 (0.0-0.7) 10^3/uL Baso # (Auto) 0.1 (0.0-0.1) 10^3/uL Absolute Nucleated RBC 0.00 x10^3/uL Nucleated RBC % 0.0 /100WBC PT (9.9-12.6) secs INR (0.8-1.2) Sodium 132 L (135-145) mmol/L Potassium 3.6 (3.5-5.0) mmol/L Chloride 99 L (101-111) mmol/L Carbon Dioxide 25 (21-32) mmol/L Anion Gap 8.0 (6-13) BUN 23 H (6-20) mg/dL Creatinine 1.2 H (0.4-1.0) mg/dL Estimated GFR (MDRD) 44 L (>89) Glucose 162 H (70-100) mg/dL Calcium 7.9 L (8.5-10.3) mg/dL Magnesium 1.6 L (1.7-2.8) mg/dL Last Dose Date UNK Last Dose Time UNK Vancomycin Trough 11.1 (10.0-20.0) ug/mL 04/26/21 Range/Units 13:04 WBC (4.8-10.8) x10^3/uL RBC (4.20-5.40) 10^6/uL Hgb (12.0-16.0) g/dL Hct (37.0-47.0) % MCV (81.0-99.0) fL MCH (27.0-31.0) pg MCHC (32.0-36.0) g/dL RDW (12.0-15.0) % Plt Count (130-450) 10^3/uL MPV (7.9-10.8) fL Neut # (Auto) (1.5-6.6) 10^3/uL Lymph # (Auto) (1.5-3.5) 10^3/uL [place] # (Auto) (0.0-1.0) 10^3/uL Eos # (Auto) (0.0-0.7) 10^3/uL Baso # (Auto) (0.0-0.1) 10^3/uL Absolute Nucleated RBC x10^3/uL Nucleated RBC % /100WBC PT 25.7 H (9.9-12.6) secs INR 2.4 H (0.8-1.2) Sodium (135-145) mmol/L Potassium (3.5-5.0) mmol/L Chloride (101-111) mmol/L Carbon Dioxide (21-32) mmol/L Anion Gap (6-13) BUN (6-20) mg/dL Creatinine (0.4-1.0) mg/dL Estimated GFR (MDRD) (>89) Glucose (70-100) mg/dL Calcium (8.5-10.3) mg/dL Magnesium (1.7-2.8) mg/dL Last Dose Date Last Dose Time Vancomycin Trough (10.0-20.0) ug/mL ABX Reporting Has patient been on IV antibiotics over the past 48 hours?: Yes Sepsis Event Note (H) - Evaluation Current Stage of Sepsis: Severe sepsis Possible source of Sepsis: positive: Skin/soft tissue - Sepsis Criteria Sepsis Criteria: Recorded Temperature greater than 38.3C or Less than 36C, Recorded Heart Rate greater than 90 bpm, Respiratory: Increasing oxygen requirements, WBC count greater than 12,000 or less than 4000, GROUP HOME PARAPROFESSIONAL: altered consciousness (unrelated to primary neuro pathology), Metabolic: lactate > 2 mmol/L Assessment/Plan - Problem List (1) Severe sepsis Impression: She appears improved from a sepsis standpoint. Her lactic acid has resolved and she has been afebrile although she has also been taking Tylenol for pain. Her white count is improving. (2) Cellulitis of right lower extremity Impression: The erythema and pain has not improved. She is still quite tender in the lower extremity and although there is no erythema over the right knee, she feels pain in the area. Her white count is improving and she has been afebrile although she is receiving Tylenol for pain which could be masking the fevers. We will continue vancomycin and add ceftriaxone to see if she will develop an allergic reaction to this or not given is listed as an allergy although she is not sure what her allergy is and she may ultimately need a cephalosporin on discharge given the bacteremia. We will obtain imaging with a CT of the right lower extremity today given her ongoing pain and lack of significant improvement. We did attempt to obtain a duplex yesterday but this was difficult due to her pain. If there is still no improvement then we will consider switching the vancomycin to clindamycin. (3) Bacteremia due to Streptococcus Impression: Initial blood cultures have grown Streptococcus Equisim. A PICC line was placed yesterday for IV access given she is a difficult stick and we had difficulty obtaining labs. Repeat cultures were obtained yesterday and these are pending. We will keep her on the vancomycin and ceftriaxone for the time being. Follow up repeat blood cultures. (4) Acute on chronic diastolic CHF (congestive heart failure) Impression: She responded well to IV Lasix yesterday and she is now on room air. Her lower extremity edema has also improved. We will resume her home oral Lasix today. (5) Elevated troponin Impression: Her troponin peaked at a little over 300 but is not trending down. We suspect this is likely demand ischemia from the severe sepsis. She has not had any chest pain and her EKG had nonspecific changes. Echocardiogram revealed no obvious wall motion abnormalities. We are continuing her aspirin and Coumadin. (6) Atrial fibrillation with RVR Impression: She is rate controlled at the moment. We have resumed her home labetalol and continuing Coumadin. (7) Oral thrush Impression: We will start her on Magic mouthwash as needed for the pain as well as nystatin 4 times daily. (8) Coronary artery disease Impression: She has known history of coronary artery disease with CABG about 4 years ago. Her elevated troponin as mentioned above appears to be demand ischemia from the sepsis. We are continuing her home medications. (9) Insulin dependent diabetes mellitus Impression: Her blood glucose has been well controlled on her current insulin regimen. We will continue this and increase her insulin dosing as her appetite increases. Continue sliding scale and carb controlled diet. (10) History of pacemaker Impression: Stable. If her bacteremia is persistent despite IV antibiotics then we may need to transfer to a higher level of care as she then may have bacteremic seeding. (11) Aortic stenosis Impression: Echocardiogram revealed moderate aortic stenosis with an aortic valve area of 1.27 cm. 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
[2021-04-27] MEDS: INSULIN GLARGINE 300 UNIT/3 ML PEN SUBQ SCH (08:03)
[2021-04-27] MEDS: INSULIN ASPART 300 UNIT/3 ML PEN SUBQ SCH ×7 (08:03→20:44)
[2021-04-27] MEDS ORDERED: IOPAMIDOL-300 100 ML VIAL ONE (08:05)
[2021-04-27] MEDS ORDERED: diphenhydrAMINE INJ 50 MG/ML VIAL IVP STA (08:08)
[2021-04-27] MEDS: WARFARIN 2.5 MG TABLET PO SCH (08:52)
[2021-04-27] MEDS: ASPIRIN EC 81 MG TABLET PO SCH (08:52)
[2021-04-27] MEDS: NYSTATIN 500000 UNITS/5 ML UDC PO SCH ×4 (08:53→20:59)
[2021-04-27] MEDS: MAGNESIUM OXIDE 400 MG TABLET PO SCH (08:53)
[2021-04-27] MEDS: cefTRIAXone 2 GM in SODIUM CHLORIDE 0.9% MINIBAG 100 ML IV SCH (08:53)
[2021-04-27] MEDS: LABETALOL 100 MG TABLET PO SCH ×2 (08:54→20:59)
[2021-04-27] MEDS ORDERED: IOPAMIDOL-300 100 ML VIAL IVP ONE (08:56)
--- NOTE | 2021-04-27 08:58 | CT Report ---
PROCEDURE: LOWER EXTREMITY W - RT INDICATIONS: Cellulitis. Bacteremia. Worsening pain. TECHNIQUE: Axial images were obtained following intravenous contrast ministration. Coronal and sagitt al images were reformatted. COMPARISON: None. FINDINGS: Skin thickening can be seen, with mild fatty stranding seen within the anterior subcutaneous fat with in the distal lower extremity. No loculated fluid collection is seen. No intramuscular lesion is seen . Atherosclerotic calcification is seen. Age-appropriate degenerative changes are seen, without a focally suspicious bone marrow lesion. Plant ar and Achilles calcaneal spurs are seen. IMPRESSION: Soft tissue cellulitis, without findings of an abscess. No acute bony abnormality can be seen. No CT findings of osteomyelitis are seen. Incidental note is made of: Bony degenerative change Atherosclerotic calcification Reviewed by: Bhupendra Fleming MD on 04/27/2021 7:56 AM AKELLIS Approved by: Bhupendra Fleming MD on 04/27/2021 7:56 AM AKELLIS Station ID: [id number]
[2021-04-27] MEDS: MAGIC MOUTHWASH (NYSTATIN) 120 ML BOTTLE PO PRN ×2 (09:20→13:49)
[2021-04-27] MEDS: polyethylene glycoL 3350 17 GM PACKET PO SCH (12:49)
[2021-04-27] MEDS: VANCOMYCIN INJ 1 GM, VANCOMYCIN INJ 500 MG in SODIUM CHLORIDE 0.9% 500 ML IV SCH (13:49)
[2021-04-27] MEDS ORDERED: SENNA 8.6 MG TABLET PO PRN (17:28)
[2021-04-27] MEDS ORDERED: DOCUSATE SODIUM 250 MG CAPSULE PO PRN (17:28)
[2021-04-28] MEDS: SODIUM CHLORIDE FLUSH 0.9% 10 ML SYRINGE IVP PRN ×4 (00:26→23:19)
[2021-04-28] MEDS: SODIUM CHLORIDE FLUSH 0.9% 10 ML SYRINGE IVP SCH ×4 (00:26→23:19)
[2021-04-28] MEDS: ACETAMINOPHEN 325 MG TABLET PO PRN ×5 (04:36→23:19)
[2021-04-28 05:52] LABS: BASOPHILS % (AUTO) 0.4 %; EOSINOPHILS # (AUTO) 0.2 10^3/uL (0.0-0.7); HCT - HEMATOCRIT 31.3 % (37.0-47.0); HGB - HEMOGLOBIN 10.2 g/dL (12.0-16.0); LYMPHOCYTES # (AUTO) 0.7 10^3/uL (1.5-3.5); LYMPHOCYTES % (AUTO) 6.3 %; MEAN CORPUSCULAR HEMOGLOBIN 31.8 pg (27.0-31.0); MEAN CORPUSCULAR HGB CONC 32.6 g/dL (32.0-36.0); MEAN CORPUSCULAR VOLUME 97.5 fL (81.0-99.0); MEAN PLATELET VOLUME 11.1 fL (7.9-10.8); MONOCYTES # (AUTO) 0.9 10^3/uL (0.0-1.0); MONOCYTES % (AUTO) 8.7 %; NEUTROPHILS # (AUTO) 8.9 10^3/uL (1.5-6.6); PLT - PLATELET COUNT 159 10^3/uL (130-450); RED BLOOD COUNT 3.21 10^6/uL (4.20-5.40); RED CELL DISTRIBUTION WIDTH 13.7 % (12.0-15.0); WHITE BLOOD COUNT 10.8 x10^3/uL (4.8-10.8)
[2021-04-28 05:59] LABS: INR 2.5 (0.8-1.2); PT - PROTHROMBIN TIME 26.7 secs (9.9-12.6)
[2021-04-28 06:02] LABS: CREATININE 1.1 mg/dL (0.4-1.0); POTASSIUM 3.4 mmol/L (3.5-5.0)
[2021-04-28] MEDS: PANTOPRAZOLE 40 MG TABLET PO SCH (06:36)
[2021-04-28] MEDS ORDERED: POTASSIUM CHLORIDE 20 MEQ TABLET PO ONE (07:49)
--- NOTE | 2021-04-28 07:50 | PROVIDER PROGRESS NOTE ---
Subjective - Prog Note Date Prog Note Date: 04/28/21 - Subjective Subjective: She feels like there may be slight improvement in her right lower extremity erythema but her pain is still quite significant and she has not had much relief with that. She denies any shortness of breath. Feels that her mouth pain is improved. Current Medications - Current Medications Current Medications: Active Medications Acetaminophen (Acetaminophen 325 Mg Tablet) 650 mg PO Q4HR PRN PRN Reason: Pain 1 to 4 Last Admin: 04/28/21 08:43 Dose: 650 mg Documented by: Aspirin (Aspirin Ec 81 Mg Tablet) 81 mg PO DAILY [facility] Last Admin: 04/28/21 08:04 Dose: 81 mg Documented by: Docusate Sodium (Docusate Sodium 250 Mg Capsule) 250 - 500 mg PO DAILY PRN PRN Reason: Constipation Furosemide (Furosemide 40 Mg Tablet) 40 mg PO BIDDIURETIC [facility] Last Admin: 04/28/21 08:43 Dose: 40 mg Documented by: Ceftriaxone Sodium 2 gm/ (Sodium Chloride) 100 mls @ 200 mls/hr IV DAILY [facility] Last Infusion: 04/28/21 08:40 Dose: Infused Documented by: Clindamycin Phosphate (Cleocin 900 Mg/50 Ml) 50 mls @ 50 mls/hr IV Q8HR [facility] Insulin Aspart (Insulin Aspart 300 Unit/3 Ml Pen) 5 unit SUBQ TIDWM [facility] Last Admin: 04/28/21 08:01 Dose: 5 unit Documented by: Insulin Aspart (Insulin Aspart 300 Unit/3 Ml Pen) 1 - 9 unit SUBQ 0800,1200,1700,2100 [facility]; Protocol Last Admin: 04/28/21 08:01 Dose: 1 unit Documented by: Insulin Glargine (Insulin Glargine 300 Unit/3 Ml Pen) 14 unit SUBQ DAILY [facility] Last Admin: 04/28/21 08:02 Dose: 14 unit Documented by: Labetalol HCl (Labetalol 100 Mg Tablet) 200 mg PO DAILY [facility] Last Admin: 04/28/21 08:05 Dose: 200 mg Documented by: Labetalol HCl (Labetalol 100 Mg Tablet) 100 mg PO QPM [facility] Last Admin: 04/27/21 20:59 Dose: 100 mg Documented by: Magnesium Oxide (Magnesium Oxide 400 Mg Tablet) 400 mg PO DAILYWM [facility] Last Admin: 04/28/21 08:01 Dose: 400 mg Documented by: Multi-Ingredient Mouthwash/Gargle (Magic Mouthwash (Nystatin) 120 Ml Bottle) 30 ml PO Q4H PRN PRN Reason: Mouth Sore Pain Last Admin: 04/27/21 13:49 Dose: 30 ml Documented by: Nystatin (Nystatin 889432 Units/5 Ml Udc) 5 ml PO QID [facility] Last Admin: 04/28/21 08:07 Dose: 5 ml Documented by: Ondansetron HCl (Ondansetron 4 Mg/2 Ml Vial) 4 mg IVP Q6HR PRN PRN Reason: Nausea / Vomiting Ondansetron HCl (Ondansetron Odt 4 Mg Tablet) 4 mg TL Q6HR PRN PRN Reason: Nausea / Vomiting Pantoprazole Sodium (Pantoprazole 40 Mg Tablet) 40 mg PO QDAC [facility] Last Admin: 04/28/21 06:36 Dose: 40 mg Documented by: Polyethylene Glycol (Polyethylene Glycol 3350 17 Gm Packet) 17 gm PO DAILY [facility] Last Admin: 04/28/21 07:59 Dose: 17 gm Documented by: Saccharomyces Boulardii (Saccharomyces Boulardii 250 Mg Capsule) 500 mg PO BIDWM [facility] Senna (Senna 8.6 Mg Tablet) 8.6 - 17.2 mg PO DAILY PRN PRN Reason: Constipation Last Admin: 04/28/21 08:05 Dose: 17.2 mg Documented by: Sodium Chloride (Sodium Chloride Flush 0.9% 10 Ml Syringe) 10 ml IVP PRN PRN PRN Reason: NEEDED PER PROVIDER ORDERS Last Admin: 04/28/21 08:09 Dose: 10 ml Documented by: Sodium Chloride (Sodium Chloride Flush 0.9% 10 Ml Syringe) 10 ml IVP 0100,0900,1700 [facility] Last Admin: 04/28/21 08:09 Dose: 10 ml Documented by: Warfarin Sodium (Warfarin 5 Mg Tablet) 5 mg PO MoWeFr@0900 [facility] Warfarin Sodium (Warfarin 2.5 Mg Tablet) 2.5 mg PO SuTuThSa@0900 [facility] Last Admin: 04/28/21 08:06 Dose: 2.5 mg Documented by: Furosemide 40 mg PO BID 11/18/17 Insulin Glargine [Lantus Solostar] 18 unit SUBQ BID 11/18/17 Labetalol HCl 200 mg PO DAILY 11/18/17 Insulin Aspart [NovoLOG] 0 - 11 units SQ QID 03/10/19 Losartan Potassium 25 mg PO QPM 03/10/19 Omeprazole 20 mg PO DAILY 03/10/19 Oxybutynin Chloride 5 mg PO BID 03/10/19 Alendronate [Fosamax] 70 mg PO Q7D 04/25/21 Labetalol HCl 100 mg PO QPM 04/25/21 Warfarin [Coumadin] 2.5 mg PO SUTUTHSA 04/25/21 Warfarin [Coumadin] 5 mg PO MOWEFR 04/25/21 Objective - Vital Signs/Intake & Output Reviewed Vital Signs: Yes Vital Signs: Vital Signs x48h Temp Pulse Pulse Resp BP Pulse Ox 04/28/21 04:25 37.2 C 108 H 20 140/93 H 96 04/28/21 00:10 36.7 C 89 16 138/65 H 95 Intake & Output: Intake & Output 04/25/21 04/26/21 04/27/21 04/28/21 23:59 23:59 23:59 23:59 Intake Total 2710 1340 2490 550 Output Total 550 3525 3850 700 Balance 2160 -2185 -1360 -150 - Objective General Appearance: positive: Alert, Mild distress Eyes Bilateral: positive: Normal inspection, Conjunctivae nml ENT: positive: ENT inspection nml Neck: positive: Nml inspection Respiratory: positive: No respiratory distress. negative: Wheezes, Rales Cardiovascular: positive: Irregularly irregular, Systolic murmur. negative: Tachycardia, Bradycardia Skin: positive: Warm, Dry, Other (Her right lower extremity is still quite e rythematous from the ankle up to mid [place]. This has not really decreased in size or redness. It is slightly less warm to touch but still quite tender.) Extremities: positive: Pedal edema (Trace to +1 pitting edema bilateral lower extremities) Neurologic/Psychiatric: negative: Disoriented to person, Disoriented to place - Lab Results Fish Bones: 04/28/21 05:20 04/28/21 05:20 Other Labs: Lab Results x24hrs 04/28/21 04/28/21 04/28/21 Range/Units 05:20 05:20 05:20 WBC 10.8 (4.8-10.8) x10^3/uL RBC 3.21 L (4.20-5.40) 10^6/uL Hgb 10.2 L (12.0-16.0) g/dL Hct 31.3 L (37.0-47.0) % MCV 97.5 (81.0-99.0) fL MCH 31.8 H (27.0-31.0) pg MCHC 32.6 (32.0-36.0) g/dL RDW 13.7 (12.0-15.0) % Plt Count 159 (130-450) 10^3/uL MPV 11.1 H (7.9-10.8) fL Neut # (Auto) 8.9 H (1.5-6.6) 10^3/uL Lymph # (Auto) 0.7 L (1.5-3.5) 10^3/uL [place] # (Auto) 0.9 (0.0-1.0) 10^3/uL Eos # (Auto) 0.2 (0.0-0.7) 10^3/uL Baso # (Auto) 0.0 (0.0-0.1) 10^3/uL Absolute Nucleated RBC 0.00 x10^3/uL Nucleated RBC % 0.0 /100WBC PT 26.7 H (9.9-12.6) secs INR 2.5 H (0.8-1.2) Sodium 135 (135-145) mmol/L Potassium 3.4 L (3.5-5.0) mmol/L Chloride 100 L (101-111) mmol/L Carbon Dioxide 25 (21-32) mmol/L Anion Gap 10.0 (6-13) BUN 22 H (6-20) mg/dL Creatinine 1.1 H (0.4-1.0) mg/dL Estimated GFR (MDRD) 48 L (>89) Glucose 157 H (70-100) mg/dL Calcium 8.0 L (8.5-10.3) mg/dL ABX Reporting Has patient been on IV antibiotics over the past 48 hours?: Yes Sepsis Event Note (H) - Evaluation Current Stage of Sepsis: Resolved Possible source of Sepsis: positive: Skin/soft tissue - Sepsis Criteria Sepsis Criteria: Recorded Temperature greater than 38.3C or Less than 36C, Recorded Heart Rate greater than 90 bpm, Respiratory: Increasing oxygen requirements, WBC count greater than 12,000 or less than 4000, BRAKE DRUM LATHE OPERATOR: altered consciousness (unrelated to primary neuro pathology), Metabolic: lactate > 2 mmol/L Assessment/Plan - Problem List (1) Cellulitis of right lower extremity Impression: Although her white count is improved and she has been afebrile, she still has significant erythema and pain in the right lower extremity. CT yesterday was consistent with cellulitis without any obvious abscess or evidence of osteomyelitis. We did attempt to obtain a duplex but due to pain she could not tolerate it. Given her ongoing erythema and pain, we will switch her antibiotics to clindamycin IV to see if its antitoxin effects might be more effective. (2) Bacteremia due to Streptococcus Impression: Initial blood cultures grew Streptococcus group C. Repeat blood cultures negative for 24hours. We have switched her to clindamycin IV today given her cellulitis is not improved. Will need to discuss with infectious disease prior to discharge regarding treatment plan on discharge. She will need a least 2 weeks of IV antibiotics with negative cultures and I suspect she will likely need IV antibiotics an option can be ceftriaxone 2 g IV daily but as mentioned above, will discuss with infectious disease first. (3) Acute on chronic diastolic CHF (congestive heart failure) Impression: She is no longer an acute congestive heart failure. She responded well to IV diuresis. We have resumed her home oral Lasix and will continue to monitor her respiratory status. (4) Elevated troponin Impression: Her troponin peaked at a little over 300 but is not trending down. We suspect this is likely demand ischemia from the severe sepsis. She has not had any chest pain and her EKG had nonspecific changes. Echocardiogram revealed no obvious wall motion abnormalities. We are continuing her aspirin and Coumadin. (5) Atrial fibrillation with RVR Impression: Her rapid ventricular response has resolved. We are continuing her home labetalol and Coumadin. (6) Oral thrush Impression: This is improved with nystatin and Magic mouthwash. (7) Coronary artery disease Impression: She has known history of coronary artery disease with CABG about 4 years ago. Her elevated troponin as mentioned above appears to be demand ischemia from the sepsis. We are continuing her home medications. (8) Insulin dependent diabetes mellitus Impression: Her blood glucose has been well controlled on her current insulin regimen. We will continue this insulin regimen, sliding scale and carb controlled diet. (9) History of pacemaker Impression: Stable. If her bacteremia is persistent despite IV antibiotics then we may need to transfer to a higher level of care as she then may have bacteremic seeding but fortunately as of now, repeat cultures are negative. (10) Aortic stenosis Impression: Echocardiogram revealed moderate aortic stenosis with an aortic valve area of 1.27 cm. 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 (11) Severe sepsis Impression: Her sepsis has now resolved. This was secondary to the right lower extremity cellulitis.
[2021-04-28] MEDS: polyethylene glycoL 3350 17 GM PACKET PO SCH (07:59)
[2021-04-28] MEDS: INSULIN ASPART 300 UNIT/3 ML PEN SUBQ SCH ×7 (08:01→20:58)
[2021-04-28] MEDS: MAGNESIUM OXIDE 400 MG TABLET PO SCH (08:01)
[2021-04-28] MEDS: INSULIN GLARGINE 300 UNIT/3 ML PEN SUBQ SCH (08:02)
[2021-04-28] MEDS: ASPIRIN EC 81 MG TABLET PO SCH (08:04)
[2021-04-28] MEDS: LABETALOL 100 MG TABLET PO SCH ×2 (08:05→20:58)
[2021-04-28] MEDS: WARFARIN 2.5 MG TABLET PO SCH (08:06)
[2021-04-28] MEDS: cefTRIAXone 2 GM in SODIUM CHLORIDE 0.9% MINIBAG 100 ML IV SCH (08:06)
[2021-04-28] MEDS: NYSTATIN 500000 UNITS/5 ML UDC PO SCH ×4 (08:07→20:58)
[2021-04-28] MEDS: FUROSEMIDE 40 MG TABLET PO SCH ×2 (08:43→15:33)
[2021-04-28] MEDS: CLINDAMYCIN 900 MG/50 ML 50 ML IV SCH ×2 (13:13→20:58)
[2021-04-28] MEDS: SACCHAROMYCES BOULARDII 250 MG CAPSULE PO SCH (16:49)
[2021-04-28] MEDS: ZINC OXIDE 20% OINT 30 GM TUBE TOP PRN (21:06)
[2021-04-29] MEDS: FUROSEMIDE 40 MG TABLET PO SCH ×2 (05:35→13:14)
[2021-04-29] MEDS: CLINDAMYCIN 900 MG/50 ML 50 ML IV SCH ×3 (05:35→21:08)
[2021-04-29 05:38] LABS: BASOPHILS # (AUTO) 0.1 10^3/uL (0.0-0.1); BASOPHILS % (AUTO) 0.5 %; EOSINOPHILS # (AUTO) 0.3 10^3/uL (0.0-0.7); HCT - HEMATOCRIT 30.5 % (37.0-47.0); LYMPHOCYTES # (AUTO) 1.1 10^3/uL (1.5-3.5); LYMPHOCYTES % (AUTO) 11.7 %; MEAN CORPUSCULAR HEMOGLOBIN 31.6 pg (27.0-31.0); MEAN CORPUSCULAR HGB CONC 32.8 g/dL (32.0-36.0); MEAN CORPUSCULAR VOLUME 96.5 fL (81.0-99.0); MEAN PLATELET VOLUME 10.5 fL (7.9-10.8); MONOCYTES % (AUTO) 10.5 %; NEUTROPHILS # (AUTO) 6.7 10^3/uL (1.5-6.6); NEUTROPHILS % (AUTO) 73.2 %; PLT - PLATELET COUNT 187 10^3/uL (130-450); RED BLOOD COUNT 3.16 10^6/uL (4.20-5.40); RED CELL DISTRIBUTION WIDTH 13.9 % (12.0-15.0); WHITE BLOOD COUNT 9.1 x10^3/uL (4.8-10.8)
[2021-04-29] MEDS: PANTOPRAZOLE 40 MG TABLET PO SCH (05:38)
[2021-04-29 05:48] LABS: INR 4.2 (0.8-1.2); PT - PROTHROMBIN TIME 42.6 secs (9.9-12.6)
[2021-04-29 05:50] LABS: CALCIUM 8.4 mg/dL (8.5-10.3); CREATININE 1.1 mg/dL (0.4-1.0); POTASSIUM 3.4 mmol/L (3.5-5.0)
[2021-04-29] MEDS: INSULIN ASPART 300 UNIT/3 ML PEN SUBQ SCH ×7 (08:37→21:55)
[2021-04-29] MEDS: polyethylene glycoL 3350 17 GM PACKET PO SCH (08:37)
[2021-04-29] MEDS: INSULIN GLARGINE 300 UNIT/3 ML PEN SUBQ SCH (08:57)
[2021-04-29] MEDS: ZINC OXIDE 20% OINT 30 GM TUBE TOP PRN (08:58)
[2021-04-29] MEDS: SODIUM CHLORIDE FLUSH 0.9% 10 ML SYRINGE IVP PRN ×2 (08:58→13:19)
[2021-04-29] MEDS: cefTRIAXone 2 GM in SODIUM CHLORIDE 0.9% MINIBAG 100 ML IV SCH (08:59)
[2021-04-29] MEDS: SODIUM CHLORIDE FLUSH 0.9% 10 ML SYRINGE IVP SCH ×2 (08:59→17:43)
[2021-04-29] MEDS ORDERED: WARFARIN 5 MG TABLET PO SCH (09:00)
[2021-04-29] MEDS: SACCHAROMYCES BOULARDII 250 MG CAPSULE PO SCH ×2 (09:07→17:42)
[2021-04-29] MEDS: ASPIRIN EC 81 MG TABLET PO SCH (09:08)
[2021-04-29] MEDS: ACETAMINOPHEN 325 MG TABLET PO PRN ×3 (09:08→21:04)
[2021-04-29] MEDS: MAGNESIUM OXIDE 400 MG TABLET PO SCH (09:08)
[2021-04-29] MEDS: NYSTATIN 500000 UNITS/5 ML UDC PO SCH ×5 (09:09→21:07)
[2021-04-29] MEDS: LABETALOL 100 MG TABLET PO SCH ×2 (09:09→21:05)
--- NOTE | 2021-04-29 11:01 | PROVIDER PROGRESS NOTE ---
Subjective - Prog Note Date Prog Note Date: 04/29/21 - Subjective Subjective: She feels better overall but her right leg is still quite bothersome. Most of her pain is when she tries to ambulate. She feels the redness has improved slightly but is still quite persistent. She states normally takes quite a while for her to recover from cellulitis. She is concerned about doing a duplex as the leg is quite tender. Current Medications - Current Medications Current Medications: Active Medications Acetaminophen (Acetaminophen 325 Mg Tablet) 650 mg PO Q4HR PRN PRN Reason: Pain 1 to 4 Last Admin: 04/29/21 09:08 Dose: 650 mg Documented by: Aspirin (Aspirin Ec 81 Mg Tablet) 81 mg PO DAILY [facility] Last Admin: 04/29/21 09:08 Dose: 81 mg Documented by: Docusate Sodium (Docusate Sodium 250 Mg Capsule) 250 - 500 mg PO DAILY PRN PRN Reason: Constipation Furosemide (Furosemide 40 Mg Tablet) 40 mg PO BIDDIURETIC [facility] Last Admin: 04/29/21 05:35 Dose: 40 mg Documented by: Ceftriaxone Sodium 2 gm/ (Sodium Chloride) 100 mls @ 200 mls/hr IV DAILY [facility] Last Infusion: 04/29/21 09:29 Dose: Infused Documented by: Clindamycin Phosphate (Cleocin 900 Mg/50 Ml) 50 mls @ 50 mls/hr IV Q8HR [facility] Last Infusion: 04/29/21 07:11 Dose: Infused Documented by: Insulin Aspart (Insulin Aspart 300 Unit/3 Ml Pen) 5 unit SUBQ TIDWM [facility] Last Admin: 04/29/21 08:58 Dose: 5 unit Documented by: Insulin Aspart (Insulin Aspart 300 Unit/3 Ml Pen) 1 - 9 unit SUBQ 0800,1200,1700,2100 [facility]; Protocol Last Admin: 04/29/21 08:37 Dose: Not Given Documented by: Insulin Glargine (Insulin Glargine 300 Unit/3 Ml Pen) 14 unit SUBQ DAILY [facility] Last Admin: 04/29/21 08:57 Dose: 14 unit Documented by: Labetalol HCl (Labetalol 100 Mg Tablet) 200 mg PO DAILY [facility] Last Admin: 04/29/21 09:09 Dose: 200 mg Documented by: Labetalol HCl (Labetalol 100 Mg Tablet) 100 mg PO QPM [facility] Last Admin: 04/28/21 20:58 Dose: 100 mg Documented by: Magnesium Oxide (Magnesium Oxide 400 Mg Tablet) 400 mg PO DAILYWM [facility] Last Admin: 04/29/21 09:08 Dose: 400 mg Documented by: Multi-Ingredient Mouthwash/Gargle (Magic Mouthwash (Nystatin) 120 Ml Bottle) 30 ml PO Q4H PRN PRN Reason: Mouth Sore Pain Last Admin: 04/27/21 13:49 Dose: 30 ml Documented by: Multi-Ingredient Ointment (Zinc Oxide 20% Oint 30 Gm Tube) 1 applic TOP PRN PRN PRN Reason: Skin Care Last Admin: 04/29/21 08:58 Dose: 1 applic Documented by: Nystatin (Nystatin 073840 Units/5 Ml Udc) 5 ml PO QID [facility] Last Admin: 04/29/21 10:01 Dose: 5 ml Documented by: Ondansetron HCl (Ondansetron 4 Mg/2 Ml Vial) 4 mg IVP Q6HR PRN PRN Reason: Nausea / Vomiting Ondansetron HCl (Ondansetron Odt 4 Mg Tablet) 4 mg TL Q6HR PRN PRN Reason: Nausea / Vomiting Pantoprazole Sodium (Pantoprazole 40 Mg Tablet) 40 mg PO QDAC [facility] Last Admin: 04/29/21 05:38 Dose: 40 mg Documented by: Polyethylene Glycol (Polyethylene Glycol 3350 17 Gm Packet) 17 gm PO DAILY [facility] Last Admin: 04/29/21 08:37 Dose: Not Given Documented by: Saccharomyces Boulardii (Saccharomyces Boulardii 250 Mg Capsule) 500 mg PO BIDWM [facility] Last Admin: 04/29/21 09:07 Dose: 500 mg Documented by: Senna (Senna 8.6 Mg Tablet) 8.6 - 17.2 mg PO DAILY PRN PRN Reason: Constipation Last Admin: 04/28/21 08:05 Dose: 17.2 mg Documented by: Sodium Chloride (Sodium Chloride Flush 0.9% 10 Ml Syringe) 10 ml IVP PRN PRN PRN Reason: NEEDED PER PROVIDER ORDERS Last Admin: 04/29/21 08:58 Dose: 10 ml Documented by: Sodium Chloride (Sodium Chloride Flush 0.9% 10 Ml Syringe) 10 ml IVP 0100,0900,1700 [facility] Last Admin: 04/29/21 08:59 Dose: 10 ml Documented by: Warfarin Sodium (Warfarin 5 Mg Tablet) 5 mg PO MoWeFr@09 [facility] Last Admin: 04/29/21 08:37 Dose: Not Given Documented by: Warfarin Sodium (Warfarin 2.5 Mg Tablet) 2.5 mg PO SuTuThSa@0900 [facility] Last Admin: 04/28/21 08:06 Dose: 2.5 mg Documented by: Furosemide 40 mg PO BID 11/18/17 Insulin Glargine [Lantus Solostar] 18 unit SUBQ BID 11/18/17 Labetalol HCl 200 mg PO DAILY 11/18/17 Insulin Aspart [NovoLOG] 0 - 11 units SQ QID 03/10/19 Losartan Potassium 25 mg PO QPM 03/10/19 Omeprazole 20 mg PO DAILY 03/10/19 Oxybutynin Chloride 5 mg PO BID 03/10/19 Alendronate [Fosamax] 70 mg PO Q7D 04/25/21 Labetalol HCl 100 mg PO QPM 04/25/21 Warfarin [Coumadin] 2.5 mg PO SUTUTHSA 04/25/21 Warfarin [Coumadin] 5 mg PO MOWEFR 04/25/21 Objective - Vital Signs/Intake & Output Reviewed Vital Signs: Yes Vital Signs: Vital Signs x48h Temp Pulse Pulse Resp BP Pulse Ox 04/29/21 07:42 36.9 C 69 18 148/90 H 96 04/29/21 05:00 36.9 C 94 18 136/72 H 94 Intake & Output: Intake & Output 04/26/21 04/27/21 04/28/21 04/29/21 23:59 23:59 23:59 23:59 Intake Total 1340 2490 2160.000 665 Output Total 3525 3850 3600 700 Balance -2185 -1360 -1440.000 -35 - Objective General Appearance: positive: No acute distress, Alert Eyes Bilateral: positive: Normal inspection, Conjunctivae nml ENT: positive: ENT inspection nml Neck: positive: Nml inspection Respiratory: positive: No respiratory distress. negative: Wheezes, Rales Cardiovascular: positive: Irregularly irregular, Systolic murmur. negative: Tachycardia Skin: positive: Warm, Dry, Other (The area of erythema over the right lower extremity from the ankle to mid [place] is slightly improved but still quite warm to touch and tender. It appears to have subsided slightly compared to yes terday. No obvious fluid collection or fluctuance.) Extremities: positive: Pedal edema (Trace edema in bilateral lower extremities) - Lab Results Fish Bones: 04/29/21 05:30 04/29/21 05:30 Other Labs: Lab Results x24hrs 04/29/21 04/29/21 04/29/21 Range/Units 05:30 05:30 05:30 WBC 9.1 (4.8-10.8) x10^3/uL RBC 3.16 L (4.20-5.40) 10^6/uL Hgb 10.0 L (12.0-16.0) g/dL Hct 30.5 L (37.0-47.0) % MCV 96.5 (81.0-99.0) fL MCH 31.6 H (27.0-31.0) pg MCHC 32.8 (32.0-36.0) g/dL RDW 13.9 (12.0-15.0) % Plt Count 187 (130-450) 10^3/uL MPV 10.5 (7.9-10.8) fL Neut # (Auto) 6.7 H (1.5-6.6) 10^3/uL Lymph # (Auto) 1.1 L (1.5-3.5) 10^3/uL [place] # (Auto) 1.0 (0.0-1.0) 10^3/uL Eos # (Auto) 0.3 (0.0-0.7) 10^3/uL Baso # (Auto) 0.1 (0.0-0.1) 10^3/uL Absolute Nucleated RBC 0.00 x10^3/uL Nucleated RBC % 0.0 /100WBC PT 42.6 H (9.9-12.6) secs INR 4.2 H (0.8-1.2) Sodium 135 (135-145) mmol/L Potassium 3.4 L (3.5-5.0) mmol/L Chloride 100 L (101-111) mmol/L Carbon Dioxide 25 (21-32) mmol/L Anion Gap 10.0 (6-13) BUN 17 (6-20) mg/dL Creatinine 1.1 H (0.4-1.0) mg/dL Estimated GFR (MDRD) 48 L (>89) Glucose 149 H (70-100) mg/dL Calcium 8.4 L (8.5-10.3) mg/dL ABX Reporting Has patient been on IV antibiotics over the past 48 hours?: Yes Sepsis Event Note (H) - Evaluation Current Stage of Sepsis: Resolved Possible source of Sepsis: positive: Skin/soft tissue - Sepsis Criteria Sepsis Criteria: Recorded Temperature greater than 38.3C or Less than 36C, Recorded Heart Rate greater than 90 bpm, Respiratory: Increasing oxygen requirements, WBC count greater than 12,000 or less than 4000, NUISANCE WILDLIFE TRAPPER: altered consciousness (unrelated to primary neuro pathology), Metabolic: lactate > 2 mmol/L Assessment/Plan - Problem List (1) Cellulitis of right lower extremity Impression: This appears slightly improved today. Her white count is now within normal limits and she has been afebrile. The mass lightly resided although she is still quite tender in the lower extremity. She initially on vancomycin and ceftriaxone and we switched her to clindamycin yesterday and we will keep her on clindamycin IV as it appears she has responded to this. I would like to see her leg improve a little more before we discharge her given she still has significant pain and erythema. We did discuss obtaining a duplex again today but she is concerned about the amount of pain this would cause her. I do have a low suspicion for DVT especially given she is anticoagulated with Coumadin and so we will hold off on the duplex. (2) Bacteremia due to Streptococcus Impression: Initial blood cultures grew strep group C and repeat blood cultures have been negative to date. We will speak with infectious disease to get their recommendations regarding antibiotics for discharge as I suspect she will likely need 2 weeks from first set of negative cultures. I am hopeful she can be discharged on IV ceftriaxone alone. (3) Acute on chronic diastolic CHF (congestive heart failure) Impression: She is no longer in acute heart failure. We have resumed her home oral Lasix and she is doing well on room air with improvement in her lower extremity edema. We will continue her current dose of Lasix. (4) Elevated troponin Impression: Her troponin peaked at a little over 300 but is not trending down. We suspect this is likely demand ischemia from the severe sepsis. She has not had any chest pain and her EKG had nonspecific changes. Echocardiogram revealed no obvious wall motion abnormalities. We are continuing her aspirin and Coumadin although her INR is elevated today. (5) Atrial fibrillation with RVR Impression: She is rate controlled on labetalol. Her INR is elevated at 4.2 and so we will hold Coumadin today. (6) Oral thrush Impression: Improved. We will continue Magic mouthwash and nystatin for a total of 7 days. (7) Coronary artery disease Impression: She has known history of coronary artery disease with CABG about 4 years ago. Her elevated troponin as mentioned above appears to be demand ischemia from the sepsis. We are continuing her home medications. (8) Insulin dependent diabetes mellitus Impression: Her blood glucose is well controlled on current insulin regimen which we will continue. Continue carb controlled diet. (9) History of pacemaker Impression: Stable. Fortunately, repeat blood cultures are negative. (10) Aortic stenosis Impression: Echocardiogram revealed moderate aortic stenosis with an aortic valve area of 1.27 cm. She will need outpatient follow-up with her arborist climber, Dr. Moore. (11) Severe sepsis Impression: Her sepsis has now resolved. This was secondary to the right lower extremity cellulitis.
[2021-04-29] MEDS ORDERED: POTASSIUM CHLORIDE 20 MEQ TABLET PO ONE (11:09)
[2021-04-30] MEDS: SODIUM CHLORIDE FLUSH 0.9% 10 ML SYRINGE IVP SCH ×3 (01:06→16:42)
[2021-04-30] MEDS: PANTOPRAZOLE 40 MG TABLET PO SCH (05:35)
[2021-04-30] MEDS: FUROSEMIDE 40 MG TABLET PO SCH ×2 (05:35→13:00)
[2021-04-30] MEDS: CLINDAMYCIN 900 MG/50 ML 50 ML IV SCH (05:35)
[2021-04-30 05:58] LABS: PT - PROTHROMBIN TIME 51.4 secs (9.9-12.6)
[2021-04-30 06:05] LABS: INR 5.1 (0.8-1.2)
[2021-04-30] MEDS: INSULIN ASPART 300 UNIT/3 ML PEN SUBQ SCH ×5 (08:00→20:42)
[2021-04-30] MEDS: LABETALOL 100 MG TABLET PO SCH ×2 (09:18→20:42)
[2021-04-30] MEDS: SACCHAROMYCES BOULARDII 250 MG CAPSULE PO SCH ×2 (09:18→16:41)
[2021-04-30] MEDS: ASPIRIN EC 81 MG TABLET PO SCH (09:19)
[2021-04-30] MEDS: MAGNESIUM OXIDE 400 MG TABLET PO SCH (09:19)
[2021-04-30] MEDS: POTASSIUM CHLORIDE 20 MEQ TABLET PO SCH (09:19)
[2021-04-30] MEDS: ACETAMINOPHEN 325 MG TABLET PO PRN ×2 (09:19→13:20)
[2021-04-30] MEDS: NYSTATIN 500000 UNITS/5 ML UDC PO SCH ×4 (09:20→20:42)
[2021-04-30] MEDS: INSULIN GLARGINE 300 UNIT/3 ML PEN SUBQ SCH (09:20)
[2021-04-30] MEDS: polyethylene glycoL 3350 17 GM PACKET PO SCH (09:21)
[2021-04-30] MEDS: cefTRIAXone 2 GM in SODIUM CHLORIDE 0.9% MINIBAG 100 ML IV SCH (09:21)
[2021-04-30] MEDS: SODIUM CHLORIDE FLUSH 0.9% 10 ML SYRINGE IVP PRN (09:22)
--- NOTE | 2021-04-30 12:33 | PROVIDER PROGRESS NOTE ---
Assessment/Plan - Problem List (1) Bacteremia due to Streptococcus Assessment/Plan: Strep group C grew in the blood and repeat blood cultures have been negative to date. Sensitivities are available today and will tailor treatment based on these>> a 14 day course of antibx planned, she already has a PICC ,line in, will use Ceftriaxone 2gm iv daily( since she has an Ampicillin allergy and has had no allergic rxn to ceftriaxone). Will plan for daily iv antibx infusions as an outpatient, wherever this can be arranged based on her insurance coverage, hopefully starting tomorrow. She has had 4 days here, therefore 10 more days needed after today. (2) Cellulitis of right lower extremity Impression: This appears slightly improved today. Her white count is now within normal limits and she has been afebrile. (3) Acute on chronic diastolic CHF (congestive heart failure) Impression: She is no longer in acute heart failure. We have resumed her home oral Lasix and she is doing well on room air with improvement in her lower extremity edema. We will continue her current dose of Lasix. (4) Cor pulmonale Impression: Her Echo showed a dilated RV and pulm HTN with PA pressure 59 mmHg. This may be from Obesity-hypoventilation and could explain chronc leg edema. Lasix has been resumed. (5) Elevated troponin Impression: Her troponin peaked at a little over 300 but is not trending down. We suspect this is likely demand ischemia from the severe sepsis. She has not had any chest pain and her EKG had nonspecific changes. Echocardiogram revealed no obvious LV wall motion abnormalities. We are continuing her aspirin. Coumadin was stopped today because of an INR of 5 today. (6) Atrial fibrillation with RVR Impression: She is now rate controlled on labetalol. Her INR is elevated and so we will h old Coumadin today. (7) Oral thrush Impression: Improved. We will continue Magic mouthwash and nystatin for a total of 7 days. (8) Coronary artery disease Impression: She has known history of coronary artery disease with CABG about 4 years ago. Her elevated troponin as mentioned above appears to be demand ischemia from the sepsis. We are continuing her home medications. (9) Insulin dependent diabetes mellitus Impression: Her blood glucose is well controlled on current insulin regimen which we will continue. Continue carb controlled diet. (10) History of pacemaker Impression: Stable. Fortunately, repeat blood cultures are negative. (11) Aortic stenosis Impression: Echocardiogram revealed moderate aortic stenosis with an aortic valve area of 1.27 cm. She will need outpatient follow-up with her javascript front end developer, Dr. Moore. (12) Severe sepsis Impression: Resolved - Current Meds Current Meds: Current Medications Generic Name Dose Route Start Last Admin Trade Name Freq PRN Reason Stop Dose Admin Acetaminophen 650 mg 04/24/21 17:32 04/30/21 09:19 Acetaminophen 325 Mg Tablet PO 650 mg Q4HR PRN Administration Pain 1 to 4 Aspirin 81 mg 04/25/21 09:00 04/30/21 09:19 Aspirin Ec 81 Mg Tablet PO 81 mg DAILY BOY Administration Furosemide 40 mg 04/28/21 09:00 04/30/21 05:35 Furosemide 40 Mg Tablet PO 40 mg BIDDIURETIC BOY Administration Insulin Aspart 1 - 9 unit 04/24/21 21:00 04/30/21 08:00 Insulin Aspart 300 Unit/3 Ml Pen SUBQ 1 unit 0800,1200,1700,2100 BOY Administration Protocol Insulin Glargine 14 unit 04/26/21 09:00 04/30/21 09:20 Insulin Glargine 300 Unit/3 Ml Pen SUBQ 14 unit DAILY BOY Administration Labetalol HCl 200 mg 04/26/21 11:30 04/30/21 09:18 Labetalol 100 Mg Tablet PO 200 mg DAILY BOY Administration Labetalol HCl 100 mg 04/26/21 21:00 04/29/21 21:05 Labetalol 100 Mg Tablet PO 100 mg QPM BOY Administration Magnesium Oxide 400 mg 04/26/21 14:00 04/30/21 09:19 Magnesium Oxide 400 Mg Tablet PO 400 mg DAILYWM BOY Administration Multi-Ingredient Mouthwash/Gargle 30 ml 04/27/21 07:55 04/27/21 13:49 Magic Mouthwash (Nystatin) 120 Ml Bottle PO 30 ml Q4H PRN Administration Mouth Sore Pain Multi-Ingredient Ointment 1 applic 04/28/21 19:47 04/29/21 08:58 Zinc Oxide 20% Oint 30 Gm Tube TOP 1 applic PRN PRN Administration Skin Care Nystatin 5 ml 04/27/21 09:00 04/30/21 09:20 Nystatin 979104 Units/5 Ml Udc PO 05/04/21 08:59 5 ml QID BOY Administration Pantoprazole Sodium 40 mg 04/26/21 13:00 04/30/21 05:35 Pantoprazole 40 Mg Tablet PO 40 mg QDAC BOY Administration Polyethylene Glycol 17 gm 04/27/21 13:00 04/30/21 09:21 Polyethylene Glycol 3350 17 Gm Packet PO Not Given DAILY BOY Potassium Chloride 20 meq 04/30/21 08:00 04/30/21 09:19 Potassium Chloride 20 Meq Tablet PO 20 meq DAILYWM BOY Administration Saccharomyces Boulardii 500 mg 04/28/21 17:00 04/30/21 09:18 Saccharomyces Boulardii 250 Mg Capsule PO 500 mg BIDWM BOY Administration Senna 8.6 - 17.2 mg 04/27/21 17:28 04/28/21 08:05 Senna 8.6 Mg Tablet PO 17.2 mg DAILY PRN Administration Constipation Sodium Chloride 10 ml 04/24/21 17:32 04/30/21 09:22 Sodium Chloride Flush 0.9% 10 Ml Syringe IVP 10 ml PRN PRN Administration NEEDED PER PROVIDER ORDERS Sodium Chloride 10 ml 04/25/21 01:00 04/30/21 09:21 Sodium Chloride Flush 0.9% 10 Ml Syringe IVP 10 ml 0100,0900,1700 BOY Administration - Lab Result Fish Bone Diagrams: 04/29/21 05:30 04/29/21 05:30 - Additional Planning My Orders: My Active Orders 04/30/21 08:00 Potassium Chloride [K-Dur] 20 meq PO DAILYWM 05/01/21 09:00 cefTRIAXone [Rocephin] 2 gm Sodium Chloride 0.9% Minibag [Normal Saline 0.9% Minibag] 100 ml IV DAILY Subjective - Subjective Patient Reports: Feeling Better, Resting Comfortably Nursing Reports: Other Objective Vital Signs: Vital Signs - 24 hr 04/29/21 04/29/21 04/29/21 15:30 16:45 20:22 Temperature 36.8 C 36.7 C Heart Rate [ 91 76 96 Brachial] Respiratory 24 24 Rate Blood Pressure 171/99 H 145/71 H 154/79 H [Left Brachial artery] O2 Saturation 97 96 04/30/21 04/30/21 04/30/21 00:27 05:33 07:42 Temperature 36.7 C 36.8 C 36.8 C Heart Rate [ 91 96 88 Brachial] Respiratory 20 20 18 Rate Blood Pressure 128/68 143/86 H 145/74 H [Left Brachial artery] O2 Saturation 95 93 94 04/30/21 11:44 Temperature 36.7 C Heart Rate [ 72 Brachial] Respiratory 18 Rate Blood Pressure 142/65 H [Left Brachial artery] O2 Saturation 97 Oxygen O2 Source Room air Oxygen Flow Rate 2 I&O (Last 24 Hrs): Intake and Output Totals x24h 04/28/21 04/29/21 04/30/21 23:59 23:59 23:59 Intake Total 2160.000 2315 850 Output Total 3600 2900 1000 Balance -1440.000 -585 -150 General: Alert, No acute distress HEENT: Atraumatic, PERRLA, EOMI Neck: Supple, No JVD Neuro: Alert, Non Focal Cardiovascular: Regular rate, No murmurs Respiratory: No respiratory distress, Breath sounds nml Abdomen: Normal bowel sounds, Soft (Obese with a pannus) Extremities: Other (1+ edema to knees, R moscoso redness and swelling is diminishing from line drawn) - Results Results: Laboratory Results WBC 9.1 x10^3/uL (4.8-10.8) 04/29/21 05:30 RBC 3.16 10^6/uL (4.20-5.40) L 04/29/21 05:30 Hgb 10.0 g/dL (12.0-16.0) L 04/29/21 05:30 Hct 30.5 % (37.0-47.0) L 04/29/21 05:30 MCV 96.5 fL (81.0-99.0) 04/29/21 05:30 MCH 31.6 pg (27.0-31.0) H 04/29/21 05:30 MCHC 32.8 g/dL (32.0-36.0) 04/29/21 05:30 RDW 13.9 % (12.0-15.0) 04/29/21 05:30 Plt Count 187 10^3/uL (130-450) 04/29/21 05:30 MPV 10.5 fL (7.9-10.8) 04/29/21 05:30 Neut # (Auto) 6.7 10^3/uL (1.5-6.6) H 04/29/21 05:30 Lymph # (Auto) 1.1 10^3/uL (1.5-3.5) L 04/29/21 05:30 [place] # (Auto) 1.0 10^3/uL (0.0-1.0) 04/29/21 05:30 Eos # (Auto) 0.3 10^3/uL (0.0-0.7) 04/29/21 05:30 Baso # (Auto) 0.1 10^3/uL (0.0-0.1) 04/29/21 05:30 Absolute Nucleated RBC 0.00 x10^3/uL 04/29/21 05:30 Total Counted 100 04/25/21 06:40 Band Neuts % (Manual) 4 % (0-10) 04/25/21 06:40 Abnorm Lymph % (Manual) 0 % 04/25/21 06:40 Nucleated RBC % 0.0 /100WBC 04/29/21 05:30 Neutrophils # (Manual) 23.2 10^3/uL (1.5-6.6) H 04/25/21 06:40 Lymphocytes # (Manual) 0.5 10^3/uL (1.5-3.5) L 04/25/21 06:40 Monocytes # (Manual) 1.0 10^3/uL (0.0-1.0) 04/25/21 06:40 Eosinophils # (Manual) 0.5 10^3/uL (0-0.7) 04/25/21 06:40 Basophils # (Manual) 0.0 10^3/uL (0-0.1) 04/25/21 06:40 Differential Comment MANUAL DIFFERENTIAL 04/25/21 06:40 Platelet Estimate NORMAL (130-450,000) (NORMAL) 04/25/21 06:40 Platelet Morphology NORMAL APPEARANCE (NORMAL) 04/25/21 06:40 RBC Morph Micro Appear NORMAL APPEARANCE (NORMAL) 04/25/21 06:40 ESR 1 mm/Hr (0-30) 04/24/21 13:22 PT 51.4 secs (9.9-12.6) H 04/30/21 05:30 INR 5.1 (0.8-1.2) H* 04/30/21 05:30 Sodium 135 mmol/L (135-145) 04/29/21 05:30 Potassium 3.4 mmol/L (3.5-5.0) L 04/29/21 05:30 Chloride 100 mmol/L (101-111) L 04/29/21 05:30 Carbon Dioxide 25 mmol/L (21-32) 04/29/21 05:30 Anion Gap 10.0 (6-13) 04/29/21 05:30 BUN 17 mg/dL (6-20) 04/29/21 05:30 Creatinine 1.1 mg/dL (0.4-1.0) H 04/29/21 05:30 Estimated GFR (MDRD) 48 (>89) L 04/29/21 05:30 Glucose 149 mg/dL (70-100) H 04/29/21 05:30 POC Whole Bld Glucose 141 mg/dL (70 - 100) H 04/30/21 11:28 Lactic Acid 1.9 mmol/L (0.5-2.2) 04/25/21 10:15 Calcium 8.4 mg/dL (8.5-10.3) L 04/29/21 05:30 Magnesium 1.6 mg/dL (1.7-2.8) L 04/26/21 13:04 Total Bilirubin 1.0 mg/dL (0.2-1.0) 04/24/21 13:22 AST 22 IU/L (10-42) 04/24/21 13:22 ALT 23 IU/L (10-60) 04/24/21 13:22 Alkaline Phosphatase 48 IU/L (42-121) 04/24/21 13:22 Troponin I High Sens 195.3 ng/L (2.3-14.8) H* 04/25/21 06:40 C-Reactive Protein < 1.0 mg/dL (0-1.0) 04/24/21 13:22 B-Natriuretic Peptide 1139 pg/mL (5-100) H 04/24/21 15:06 Total Protein 7.1 g/dL (6.7-8.2) 04/24/21 13:22 Albumin 3.9 g/dL (3.2-5.5) 04/24/21 13:22 Globulin 3.2 g/dL (2.1-4.2) 04/24/21 13:22 Albumin/Globulin Ratio 1.2 (1.0-2.2) 04/24/21 13:22 Urine Color YELLOW 04/24/21 17:31 Urine Clarity CLOUDY (CLEAR) 04/24/21 17:31 Urine pH 5.5 PH (5.0-7.5) 04/24/21 17:31 Ur Specific [place] 1.015 (1.002-1.030) 04/24/21 17:31 Urine Protein 100 mg/dL (NEGATIVE) H 04/24/21 17:31 Urine Glucose (UA) NEGATIVE mg/dL (NEGATIVE) 04/24/21 17:31 Urine Ketones NEGATIVE mg/dL (NEGATIVE) 04/24/21 17:31 Urine Occult Blood SMALL (NEGATIVE) H 04/24/21 17:31 Urine Nitrite NEGATIVE (NEGATIVE) 04/24/21 17:31 Urine Bilirubin NEGATIVE (NEGATIVE) 04/24/21 17:31 Urine Urobilinogen 0.2 (NORMAL) E.U./dL (NORMAL) 04/24/21 17:31 Ur Leukocyte Esterase LARGE (NEGATIVE) H 04/24/21 17:31 Urine RBC 6-10 /HPF (0-5) H 04/24/21 17:31 Urine WBC >25 /HPF (0-5) H 04/24/21 17:31 Ur Epithelial Cells MOD Transitional /HPF (<= Few) H 04/24/21 17:31 Ur Squamous Epith Cells MANY Squamous (<= Few) H 04/24/21 17:31 Urine Bacteria Few /HPF (None Seen) 04/24/21 17:31 Urine Culture Comments NOT INDICATED 04/24/21 17:31 Nasal Adenovirus (PCR) NOT DETECTED 04/24/21 13:22 Nasal B. parapertussis DNA (PCR) NOT DETECTED 04/24/21 13:22 Nasal Coronavir 229E PCR NOT DETECTED 04/24/21 13:22 Nasal Coronavir HKU1 PCR NOT DETECTED 04/24/21 13:22 Nasal Coronavir NL63 PCR NOT DETECTED 04/24/21 13:22 Nasal Coronavir OC43 PCR NOT DETECTED 04/24/21 13:22 Nasal Enterovir/Rhinovir PCR NOT DETECTED 04/24/21 13:22 Nasal Influenza B PCR NOT DETECTED 04/24/21 13:22 Nasal Influenza A PCR NOT DETECTED 08/04/21 13:22 Nasal Parainfluen 1 PCR NOT DETECTED 04/24/21 13:22 Nasal Parainfluen 2 PCR NOT DETECTED 04/24/21 13:22 Nasal Parainfluen 3 PCR NOT DETECTED 04/24/21 13:22 Nasal Parainfluen 4 PCR NOT DETECTED 04/24/21 13:22 Nasal RSV (PCR) NOT DETECTED 04/24/21 13:22 Nasal B.pertussis DNA PCR NOT DETECTED 04/24/21 13:22 Nasal C.pneumoniae (PCR) NOT DETECTED 04/24/21 13:22 Ye Human Metapneumo PCR NOT DETECTED 04/24/21 13:22 Nasal M.pneumoniae (PCR) NOT DETECTED 04/24/21 13:22 Nasal SARS-CoV-2 (PCR) NOT DETECTED 04/24/21 13:22 Last Dose Date UNK 04/26/21 13:04 Last Dose Time UNK 04/26/21 13:04 Vancomycin Trough 11.1 ug/mL (10.0-20.0) 04/26/21 13:04 Sepsis Event Note (H) - Evaluation Current Stage of Sepsis: Resolved Possible source of Sepsis: positive: Skin/soft tissue - Sepsis Criteria Sepsis Criteria: Recorded Temperature greater than 38.3C or Less than 36C, Recorded Heart Rate greater than 90 bpm, Respiratory: Increasing oxygen requirements, WBC count greater than 12,000 or less than 4000, OPAL MINER: altered c onsciousness (unrelated to primary neuro pathology), Metabolic: lactate > 2 mmol/L
[2021-05-01] MEDS: SODIUM CHLORIDE FLUSH 0.9% 10 ML SYRINGE IVP SCH ×2 (01:09→08:20)
[2021-05-01] MEDS: PANTOPRAZOLE 40 MG TABLET PO SCH (06:15)
[2021-05-01] MEDS: FUROSEMIDE 40 MG TABLET PO SCH (06:15)
[2021-05-01] MEDS: INSULIN ASPART 300 UNIT/3 ML PEN SUBQ SCH ×2 (07:40→11:48)
[2021-05-01] MEDS: INSULIN GLARGINE 300 UNIT/3 ML PEN SUBQ SCH (08:18)
[2021-05-01] MEDS: LABETALOL 100 MG TABLET PO SCH (08:19)
[2021-05-01] MEDS: POTASSIUM CHLORIDE 20 MEQ TABLET PO SCH (08:19)
[2021-05-01] MEDS: ASPIRIN EC 81 MG TABLET PO SCH (08:19)
[2021-05-01] MEDS: MAGNESIUM OXIDE 400 MG TABLET PO SCH (08:19)
[2021-05-01] MEDS: SACCHAROMYCES BOULARDII 250 MG CAPSULE PO SCH (08:19)
[2021-05-01] MEDS: polyethylene glycoL 3350 17 GM PACKET PO SCH (08:20)
[2021-05-01] MEDS ORDERED: cefTRIAXone 2 GM in SODIUM CHLORIDE 0.9% MINIBAG 100 ML IV SCH (09:00)
[2021-05-01] MEDS: NYSTATIN 500000 UNITS/5 ML UDC PO SCH (09:01)
[2021-05-01 09:52] LABS: BASOPHILS # (AUTO) 0.1 10^3/uL (0.0-0.1); BASOPHILS % (AUTO) 0.8 %; EOSINOPHILS # (AUTO) 0.3 10^3/uL (0.0-0.7); HCT - HEMATOCRIT 33.1 % (37.0-47.0); HGB - HEMOGLOBIN 10.9 g/dL (12.0-16.0); LYMPHOCYTES # (AUTO) 1.5 10^3/uL (1.5-3.5); LYMPHOCYTES % (AUTO) 13.1 %; MEAN CORPUSCULAR HEMOGLOBIN 31.5 pg (27.0-31.0); MEAN CORPUSCULAR HGB CONC 32.9 g/dL (32.0-36.0); MEAN CORPUSCULAR VOLUME 95.7 fL (81.0-99.0); MEAN PLATELET VOLUME 10.1 fL (7.9-10.8); MONOCYTES # (AUTO) 0.8 10^3/uL (0.0-1.0); MONOCYTES % (AUTO) 7.1 %; NEUTROPHILS # (AUTO) 8.3 10^3/uL (1.5-6.6); NEUTROPHILS % (AUTO) 72.6 %; PLT - PLATELET COUNT 323 10^3/uL (130-450); RED BLOOD COUNT 3.46 10^6/uL (4.20-5.40); WHITE BLOOD COUNT 11.3 x10^3/uL (4.8-10.8)
[2021-05-01 10:01] LABS: CALCIUM 8.9 mg/dL (8.5-10.3); CREATININE 1.1 mg/dL (0.4-1.0); POTASSIUM 3.8 mmol/L (3.5-5.0)
[2021-05-01 10:29] LABS: INR 2.3 (0.8-1.2); PT - PROTHROMBIN TIME 24.8 secs (9.9-12.6)
[2021-05-01 11:26] VITALS: BP 121/74
--- NOTE | 2021-05-01 12:14 | Discharge Plan ---
Discharge Plan Problem Reviewed?: Yes Disposition: Home, Self Care Condition: Stable Prescriptions: Saccharomyces Boulardii [Florastor] 250 mg PO BID #18 cap Potassium Chloride [K-Dur] 20 meq PO DAILY #7 tablet Magnesium Oxide [Mag Ox] 400 mg PO DAILYWM #7 tablet cefTRIAXone [Rocephin 2 gram] 2 gm IV DAILY #9 vial Diet: Diabetic (Low salt diet also please) Activity Restrictions: Activity as Tolerated Shower Restrictions: No Instruction Topics: Cellulitis Dc Health Concerns: You were admitted with a severe infection (sepsis), which was caused by your right leg soft tissue infection (cellulitis). You are being discharged with arrangements made for daily iv antibiotics through the PICC line to be administered for you here, at the [facility], for about 9 more days. Please resume all your usual pre-hospital medications. There are several new prescriptions for Magnesium, Potassium and the Probiotic, to take for several more days, which were electronically ordered to your [facility] pharmacy in [place]. Plan of Treatment: As above. Care Goals: Improvement in symptoms and stabilization are the goals. Assessment: The patient understands and is agreeable with the plan. Additional Instructions or Follow Up instructions: Please see your PCP in 1 to 2 weeks for a hospital follow-up appointment. If you have new or worsening symptoms, call your PCP for advice or come to the ER. Follow-Up Care: [facility] - Medical No Smoking: If you smoke, Please STOP! Call for help. Follow-up with: Mary Almodovar ARNP [Primary Care Provider] -
--- NOTE | 2021-05-01 12:23 | DISCHARGE SUMMARY ---
Discharge Summary Admit Date: 04/24/21 Discharge Date: 05/01/21 Discharging Provider: Ele Hebert MD Primary Care Provider: Mercedes Almodovar NP Code Status: Attempt Resuscitation Condition at Discharge: Stable Discharge Disposition: 01 Home, [facility] History of Present Illness: From the admission H&P of Dr Darian Ewing: This is a 75-year-old white female with a past medical history significant for coronary artery disease status post CABG, atrial fibrillation on Coumadin, insulin-dependent type 2 diabetes mellitus who presents today complaining of right lower extremity erythema. She states she noticed her leg became red and warm last Thursday and this has progressed over the past few days. She became increasingly concerned yesterday and today because she developed fevers, chills, rigors and just generalized fatigue. She reports having a history of cellulitis in the past in both of her lower extremities. She reports that her dog did scra tch her over the medial aspect of her right upper thigh but that this area is not bothering her. She notes that she had a small crack over her right heel over a week ago and she is not sure if this may have contributed to her infection or not. She does report mild neuropathy at baseline but that her sensation for the most part is intact. She denies any chest pain or dyspnea. She reports no cough, orthopnea. She does report nausea and vomiting this morning. Denies any abdominal pain, dysuria, hematuria. In the emergency department, she is noted to be febrile with a temperature of 38.9 C. She was also tachycardic with a heart rates in the 120s and in atrial fibrillation. She was tachypneic with a respiratory in the low 20s. She was noted to be saturating 90% on room air and so she was placed on 2 L of oxygen with improvement in her saturations to 95%. Chest x-ray was obtained which showed pulmonary vascular edema versus atypical pneumonia. Labs revealed a white count of 15.9, potassium of 3.1 and an initial lactic acid of 2.2 which on recheck increased to 2.5. Initial troponin was 72.4 and 2 hours later it had increased to 264.8. Her BNP was elevated at 1100. Her EKG showed atrial fibrillation with rates in the 120s and nonspecific changes. The emergency department physician did speak with Cardiology at [facility] who felt that transfer was not warranted at this point. She did receive vancomycin and ciprofloxacin in the emergency department. Given the above findings, Hospitalist was consulted for admission. I did discuss goals of care with the patient and she is not sure what she would like and therefore she wants to be a full code for the time being. - HOSPITAL COURSE Hospital Course: (1) Severe sepsis This was secondary to the right lower extremity cellulitis, and she presented with a fever, leukocytosis, tachycardia and elevated lactic acid. Fortunately she was not hypotensive. She has received 1 L of normal saline in the emergency department. We held off on further IV hydration, given she appeared to be in heart failure and she was normotensive. We put her on iv vancomycin and iv ciprofloxacin for the cellulitis, given she is diabetic with a small laceration of her heel. (2) Bacteremia due to Streptococcus We suspected she may be bacteremic given her rigors and chills. Streptococcus dysgalic (group C Strep) grew in the blood and repeat blood cultures were negative. An Echocardiogram revealed no obvious LV wall motion abnormalities, but her valves had thickening (see below, Aortic stenosis), therefore vegetation could not be ruled out. Sensitivities to the Strep became available and treatment was based on these. We planned a 14 day course of antibiotics, she received a PICC line. She will be treated with Ceftriaxone 2gm iv daily (since she has an Ampicillin allergy but has had no allergic reaction on empiric ceftriaxone). Will plan for daily iv antibx infusions as an outpatient, and this was arranged (based on her insurance coverage) to be done through the [facility] here. She has had 4 days of iv antibiotics here, therefore 10 more days are needed after today. (3) Cellulitis of right lower extremity This improved. Her white count became within normal limits and she was afebrile. (4) Acute on chronic diastolic CHF (congestive heart failure) She was treated with iv Lasix and supplemental O2. We later resumed her home oral Lasix and she was saturating well on room air, and had improvement in her lower extremity edema. (5) Cor pulmonale Her Echo showed a dilated RV and pulm HTN with PA pressure 59 mmHg. This may be from Obesity-hypoventilation and could explain chronic leg edema. Lasix po was eventually resumed. (6) Elevated troponin Her troponin peaked at a little over 300. We suspected this was likely demand ischemia from the severe sepsis with tachycardia. She did not have any chest pain and her EKG had nonspecific changes. Also, an Echocardiogram revealed no obvious LV wall motion abnormalities. We continued her aspirin. Coumadin was on hold because of an INR of 5, but resumed at discharge. (6) Atrial fibrillation with RVR The heart rate was controlled by giving iv Labetalol and treating the infection. Her INR was elevated and so Coumadin was briefly on hold, the resumed at discharge. (7) Oral thrush She complained of oral discomfort and Thrush was noted. She got Magic mouthwash and nystatin for a total of 7 days. (8) Coronary artery disease She has a known history of coronary artery disease with CABG about 4 years ago. Her elevated troponin, as mentioned above, appeared to be demand ischemia from the sepsis, since the Echo showed no wall motion abnormalities. We continued her home medications. (9) Insulin dependent diabetes mellitus Her blood glucose was well controlled on current insulin regimen which we continued and a carb controlled diet, and sliding scale insulin coverage. (10) History of pacemaker Stable. Fortunately, repeat blood cultures were negative. (11) Aortic stenosis Echocardiogram revealed moderate aortic stenosis with an aortic valve area of 1.27 cm. She will need outpatient follow-up with her Safety Belt Installer, Dr. Moore. - ALLERGIES Allergies/Adverse Reactions: Allergies Allergy/AdvReac Type Severity Reaction Status Date / Time amoxicillin Allergy Unknown Verified 04/24/21 12:57 atropine [From Lomotil] Allergy Unknown Verified 04/24/21 12:57 Cephalosporins Allergy Unknown Verified 04/24/21 12:57 diphenoxylate [From Lomotil] Allergy Unknown Verified 04/24/21 12:57 iodine Allergy Unknown Verified 04/24/21 12:57 Latex, Natural Rubber Allergy Unknown Verified 04/24/21 12:57 nickel Allergy Rash Verified 04/24/21 12:57 Penicillins Allergy Hives Verified 04/24/21 12:57 Tetanus Vaccines and Toxoid Allergy Unknown Verified 04/24/21 12:57 metformin AdvReac Unknown Verified 04/24/21 12:57 minocycline AdvReac Unknown Verified 04/24/21 12:57 oxycodone AdvReac Unknown Verified 04/24/21 12:57 Lvygrvc-Ueb-Ufs Reductase AdvReac Unknown Verified 04/24/21 12:57 Inhibitor - MEDICATIONS Home Medications: Ambulatory Orders Medication Instructions Recorded Confirmed Furosemide 40 mg PO BID 11/18/17 04/25/21 Insulin Glargine [Lantus Solostar] 18 unit SUBQ BID 11/18/17 04/25/21 Labetalol HCl 200 mg PO DAILY 11/18/17 04/25/21 Insulin Aspart [NovoLOG] 0 - 11 units SQ QID 03/10/19 04/25/21 Losartan Potassium 25 mg PO QPM 03/10/19 04/25/21 Omeprazole 20 mg PO DAILY 03/10/19 04/25/21 Oxybutynin Chloride 5 mg PO BID 03/10/19 04/25/21 Alendronate [Fosamax] 70 mg PO Q7D 04/25/21 04/25/21 Labetalol HCl 100 mg PO QPM 04/25/21 04/25/21 Warfarin [Coumadin] 2.5 mg PO SUTUTHSA 04/25/21 04/25/21 Warfarin [Coumadin] 5 mg PO MOWEFR 04/25/21 04/25/21 Aspirin EC [Ecotrin] 81 mg PO DAILY tablet 05/01/21 Magnesium Oxide [Mag Ox] 400 mg PO DAILYWM #7 tablet 05/01/21 Potassium Chloride [K-Dur] 20 meq PO DAILY #7 tablet 05/01/21 Saccharomyces Boulardii [Florastor] 250 mg PO BID #18 cap 05/01/21 cefTRIAXone [Rocephin 2 gram] 2 gm IV DAILY #9 vial 05/01/21 - PHYSICAL EXAM AT DISCHARGE General Appearance: positive: No acute distress, Alert, Other (Obese (BMI 43)) Eyes Bilateral: positive: Normal inspection, EOMI ENT: positive: ENT inspection nml, No signs of dehydration Neck: positive: Nml inspection (Obese neck) Respiratory: positive: No respiratory distress, Breath sounds nml Cardiovascular: positive: Regular rate & rhythm, Systolic murmur Abdomen: positive: Non-tender, Nml bowel sounds (Obese with a pannus) Skin: positive: Warm, Dry Extremities: positive: Other (1+ edema of legs, warm shins) Neurologic/Psychiatric: positive: Oriented x3 (Non-focal grossly) - LABS Result Diagrams: 05/01/21 09:42 05/01/21 09:42 - DIAGNOSTIC IMAGING Diagnostic Imaging Results: Final report reviewed - SEPSIS Current Stage of Sepsis: Resolved Possible source of Sepsis: Skin/soft tissue Sepsis Criteria: Recorded Temperature greater than 38.3C or Less than 36C, Recorded Heart Rate greater than 90 bpm, Respiratory: Increasing oxygen requirements, WBC count greater than 12,000 or less than 4000, SECURITY GUARD SUPERVISOR: altered consciousness (unrelated to primary neuro pathology), Metabolic: lactate > 2 mmol/L - FOLLOW UP Follow Up: See [facility] starting tomorrow for daily iv antibiotic infusions, overseen by PCP Mercedes Alomdovar NP. - TIME SPENT Time Spent in Discharge (Minutes): 60
== END 2021-05-01 13:20 | disposition home or self-care (01) | DRG 871 ==
LOC: EDUNIT# → ED 12:45 → MS2 17:32
PROVIDERS: ADMIT Internal Medicine; ATTEND Internal Medicine
PROC: 02HV33Z Insertion of Infusion Device into Superior Vena Cava, Percutaneous Approach (ICD-10-PCS; principal; 2021-04-26)
DX: A41.9 Sepsis, unspecified organism (principal); A40.8 Other streptococcal sepsis; I50.33 Acute on chronic diastolic (congestive) heart failure; L03.115 Cellulitis of right lower limb; I50.9 Heart failure, unspecified; E66.2 Morbid (severe) obesity with alveolar hypoventilation; I24.8 Other forms of acute ischemic heart disease; E11.9 Type 2 diabetes mellitus without complications; B37.0 Candidal stomatitis; G93.40 Encephalopathy, unspecified; R01.1 Cardiac murmur, unspecified; Z20.822 Contact with and (suspected) exposure to COVID-19; Z68.41 Body mass index [BMI] 40.0-44.9, adult; Z79.899 Other long term (current) drug therapy; R65.20 Severe sepsis without septic shock; I11.0 Hypertensive heart disease with heart failure; I27.81 Cor pulmonale (chronic); I48.91 Unspecified atrial fibrillation; I35.0 Nonrheumatic aortic (valve) stenosis; I25.10 Atherosclerotic heart disease of native coronary artery without angina pectoris; Z88.1 Allergy status to other antibiotic agents; Z95.0 Presence of cardiac pacemaker; Z79.01 Long term (current) use of anticoagulants; Z95.1 Presence of aortocoronary bypass graft; Z79.4 Long term (current) use of insulin; Z87.891 Personal history of nicotine dependence; E11.40 Type 2 diabetes mellitus with diabetic neuropathy, unspecified; K21.9 Gastro-esophageal reflux disease without esophagitis
CPT/HCPCS: 36415; 71045; 73701; 80048; 80053; 80202; 81001; 83605; 83735; 83880; 84484; 85025; 85610; 85651; 86140; 87040; 87077; 87150; 87181; 87631; 93005; 93306; 96361; 96365; 96366; 96367; 96375; 96376; 99284; 99285; A9270; C1751; J1200; J1815; J3370; Q9967; 0202U; 87086

== ENCOUNTER 2021-05-14 15:17 | Outpatient (CLI) | payer MEDICARE, OTHER ==
--- NOTE | 2021-05-14 17:04 | XRAY Report ---
PROCEDURE: Chest 2 View X-Ray INDICATIONS: ABNORMAL FINDINGS ON DI IMAGING TECHNIQUE: 2 view(s) of the chest. COMPARISON: Prior chest dated 04/26/2021. FINDINGS: Surgical changes and devices: Stable positioning of left cardiac pacer.. Right PICC has been placed w ith the tube tip projected over the upper SVC. Lungs and pleura: No pleural effusions or pneumothorax. Lungs are clear. Mediastinum: Mediastinal contours are normal. Heart size is normal. Bones and chest wall: No suspicious bony abnormalities. Soft tissues appear unremarkable. IMPRESSION: Resolved pulmonary edema. Reviewed by: CARI Cantu on 05/14/2021 5:02 PM PDT Approved by: Ernie Quiros MD on 05/14/2021 5:02 PM PDT Station ID: [id number]
[2021-05-14 19:56] LABS: BASOPHILS # (AUTO) 0.1 10^3/uL (0.0-0.1); BASOPHILS % (AUTO) 1.5 %; EOSINOPHILS # (AUTO) 0.1 10^3/uL (0.0-0.7); EOSINOPHILS % (AUTO) 2.1 %; HCT - HEMATOCRIT 36.4 % (37.0-47.0); HGB - HEMOGLOBIN 11.3 g/dL (12.0-16.0); LYMPHOCYTES # (AUTO) 1.6 10^3/uL (1.5-3.5); MEAN CORPUSCULAR VOLUME 99.7 fL (81.0-99.0); MEAN PLATELET VOLUME 11.1 fL (7.9-10.8); MONOCYTES # (AUTO) 0.7 10^3/uL (0.0-1.0); MONOCYTES % (AUTO) 13.5 %; NEUTROPHILS # (AUTO) 2.9 10^3/uL (1.5-6.6); NEUTROPHILS % (AUTO) 53.7 %; PLT - PLATELET COUNT 301 10^3/uL (130-450); RED BLOOD COUNT 3.65 10^6/uL (4.20-5.40); RED CELL DISTRIBUTION WIDTH 13.2 % (12.0-15.0); WHITE BLOOD COUNT 5.3 x10^3/uL (4.8-10.8)
[2021-05-14 20:06] LABS: CALCIUM 9.5 mg/dL (8.5-10.3); CREATININE 1.3 mg/dL (0.4-1.0); POTASSIUM 3.9 mmol/L (3.5-5.0)
== END 2021-05-14 15:18 | disposition home or self-care (01) ==
LOC: DI.S 15:17
PROVIDERS: ATTEND Nurse Practitioner Family
DX: J81.1 Chronic pulmonary edema (principal); A40.9 Streptococcal sepsis, unspecified; L03.115 Cellulitis of right lower limb
CPT/HCPCS: 36415; 80048; 85025; 87040

== ENCOUNTER 2021-05-29 11:32 | Outpatient (CLI) | payer MEDICARE, OTHER | END 2021-05-29 11:33 | disposition critical access hospital (66) | LOC: EMS 11:32 | DX: R11.2 Nausea with vomiting, unspecified (principal); R19.7 Diarrhea, unspecified; R10.817 Generalized abdominal tenderness | CPT/HCPCS: A0425; A0429 ==

== ENCOUNTER 2021-05-29 12:07 | Emergency (ER) | payer MEDICARE, OTHER ==
--- NOTE | 2021-05-29 12:12 | ED Physician Documentation ---
PD HPI NVD - Stated complaint Stated Complaint: N/V/D - History obtained from History obtained from: Patient, EMS - Additonal information Additional information: Finished IV Rocephin for right leg cellulitis about 2 weeks ago. Last night fe lt fatigued and starting at 730 this morning has had vomiting and diarrhea as well as stomach cramps. No sick contacts. No fever. Review of Systems Constitutional: reports: Sweats. denies: Fever, Chills Nose: reports: Reviewed and negative Throat: reports: Reviewed and negative Cardiac: reports: Reviewed and negative PD PAST MEDICAL HISTORY - Past Medical History Cardiovascular: Hypertension, High cholesterol, Coronary artery disease, Atrial fibrillation, Murmur, Valve disorder Respiratory: None Endocrine/Autoimmune: Type 2 diabetes GI: GERD, Chronic diarrhea GEOLOGICAL SCOUT: None : Renal insuffiency HEENT: None Psych: None Musculoskeletal: Osteoarthritis, Osteoporosis, Osteopenia, Other Derm: Eczema, Psoriasis - Past Surgical History Past Surgical History: Yes General: Cholecystectomy, Appendectomy Cardiovascular: CABG, Coronary stent, Pacemaker HEENT: Cataracts - Present Medications Home Medications: Ambulatory Orders Medication Instructions Recorded Confirmed Furosemide 40 mg PO BID 11/18/17 04/25/21 Insulin Glargine [Lantus Solostar] 18 unit SUBQ BID 11/18/17 04/25/21 Labetalol HCl 200 mg PO DAILY 11/18/17 04/25/21 Insulin Aspart [NovoLOG] 0 - 11 units SQ QID 03/10/19 04/25/21 Losartan Potassium 25 mg PO QPM 03/10/19 04/25/21 Omeprazole 20 mg PO DAILY 03/10/19 04/25/21 Oxybutynin Chloride 5 mg PO BID 03/10/19 04/25/21 Alendronate [Fosamax] 70 mg PO Q7D 04/25/21 04/25/21 Labetalol HCl 100 mg PO QPM 04/25/21 04/25/21 Warfarin [Coumadin] 2.5 mg PO SUTUTHSA 04/25/21 04/25/21 Warfarin [Coumadin] 5 mg PO MOWEFR 04/25/21 04/25/21 Aspirin EC [Ecotrin] 81 mg PO DAILY tablet 05/01/21 Magnesium Oxide [Mag Ox] 400 mg PO DAILYWM #7 tablet 05/01/21 Potassium Chloride [K-Dur] 20 meq PO DAILY #7 tablet 05/01/21 Saccharomyces Boulardii [Florastor] 250 mg PO BID #18 cap 05/01/21 cefTRIAXone [Rocephin 2 gram] 2 gm IV DAILY #9 vial 05/01/21 Loperamide [Imodium] 2 mg PO QID PRN #10 cap 05/29/21 Ondansetron Odt [Zofran] 4 mg TL Q6H PRN #10 tablet 05/29/21 - Allergies Allergies/Adverse Reactions: Allergies Allergy/AdvReac Type Severity Reaction Status Date / Time amoxicillin Allergy Unknown Verified 05/29/21 12:21 atropine [From Lomotil] Allergy Unknown Verified 05/29/21 12:21 Cephalosporins Allergy Unknown Verified 05/29/21 12:21 diphenoxylate [From Lomotil] Allergy Unknown Verified 05/29/21 12:21 iodine Allergy Unknown Verified 05/29/21 12:21 Latex, Natural Rubber Allergy Unknown Verified 05/29/21 12:21 nickel Allergy Rash Verified 05/29/21 12:21 Penicillins Allergy Hives Verified 05/29/21 12:21 Tetanus Vaccines and Toxoid Allergy Unknown Verified 05/29/21 12:21 metformin AdvReac Unknown Verified 05/29/21 12:21 minocycline AdvReac Unknown Verified 05/29/21 12:21 oxycodone AdvReac Unknown Verified 05/29/21 12:21 Hjowcxv-Qvz-Pwp Reductase AdvReac Unknown Verified 05/29/21 12:21 Inhibitor - Social History Does the pt smoke?: No Smoking Status: Former smoker Does the pt drink ETOH?: Yes Does the pt have substance abuse?: No - Immunizations Immunizations are current?: Yes - POLST Patient has POLST: No PD ED PE NORMAL - Vitals Vital signs reviewed: Yes - General General: Alert and oriented X 3, No acute distress - Cardiac Cardiac: RRR, No murmur - Respiratory Respiratory: No respiratory distress, Clear bilaterally - Abdomen Abdomen: Soft, Non tender - Back Back: No CVA TTP, No spinal TTP - Derm Derm: Normal color, Warm and dry - Extremities Extremities: No edema, No calf tenderness / cord - Neuro Neuro: Alert and oriented X 3, Normal speech Results - Vitals Vitals: Vital Signs - 24 hr 09/08/21 09/08/21 12:12 14:42 Temperature 36.6 C 36.4 C L Heart Rate 72 72 Respiratory 17 15 Rate Blood Pressure 117/82 H 128/66 O2 Saturation 99 100 Oxygen O2 Source Room air - Labs Labs: Laboratory Tests 05/29/21 05/29/21 12:40 13:08 WBC 12.6 H RBC 3.72 L Hgb 11.8 L Hct 37.3 MCV 100.3 H MCH 31.7 H MCHC 31.6 L RDW 13.2 Plt Count 205 MPV 11.0 H Neut # (Auto) 10.8 H Lymph # (Auto) 0.9 L Weber # (Auto) 0.8 Eos # (Auto) 0.1 Baso # (Auto) 0.1 Absolute Nucleated RBC 0.00 Nucleated RBC % 0.0 Sodium 134 L Potassium 3.9 Chloride 100 L Carbon Dioxide 23 Anion Gap 11.0 BUN 25 H Creatinine 1.3 H Estimated GFR (MDRD) 40 L Glucose 250 H Calcium 9.2 Total Bilirubin 0.8 AST 28 ALT 20 Alkaline Phosphatase 46 Total Protein 7.0 Albumin 3.5 Globulin 3.5 Albumin/Globulin Ratio 1.0 Lipase 28 PD MEDICAL DECISION MAKING - ED course ED course: 75-year-old woman presents with nausea, vomiting, diarrhea, all very acute with benign examination. Feeling better after Imodium, IV fluids and Zofran here. On reexamination remained nontender. Labs show modest elevation of white blood cell count, BUN is chronically elevated as is her creatinine. Passed an oral c hallenge. Departure - Departure Disposition: 01 Home, Self Care Clinical Impression: Gastroenteritis Condition: Good Record reviewed to determine appropriate education?: Yes Instructions: ED Gastroenteritis Viral Prescriptions: Loperamide [Imodium] 2 mg PO QID PRN #10 cap PRN Reason: Diarrhea Ondansetron Odt [Zofran] 4 mg TL Q6H PRN #10 tablet PRN Reason: Nausea / Vomiting Comments: Prescription was sent electronically to [facility] in [place]. As discussed, your symptoms are consistent with gastroenteritis which is generally thankfully short lived illness. Return if not better in the next 24 hours, anytime if worse or if new symptoms develop. Discharge Date/Time: 05/29/21 15:55
[2021-05-29] MEDS ORDERED: LOPERAMIDE 2 MG CAPSULE PO STA (12:22)
[2021-05-29] MEDS ORDERED: SODIUM CHLORIDE 0.9% 1,000 ML IV STA (12:22)
[2021-05-29] MEDS ORDERED: ONDANSETRON 4 MG/2 ML VIAL IVP STA (12:22)
[2021-05-29 13:18] LABS: BASOPHILS # (AUTO) 0.1 10^3/uL (0.0-0.1); BASOPHILS % (AUTO) 0.4 %; EOSINOPHILS # (AUTO) 0.1 10^3/uL (0.0-0.7); EOSINOPHILS % (AUTO) 0.4 %; HCT - HEMATOCRIT 37.3 % (37.0-47.0); HGB - HEMOGLOBIN 11.8 g/dL (12.0-16.0); LYMPHOCYTES # (AUTO) 0.9 10^3/uL (1.5-3.5); LYMPHOCYTES % (AUTO) 7.2 %; MEAN CORPUSCULAR HEMOGLOBIN 31.7 pg (27.0-31.0); MEAN CORPUSCULAR HGB CONC 31.6 g/dL (32.0-36.0); MEAN CORPUSCULAR VOLUME 100.3 fL (81.0-99.0); MONOCYTES # (AUTO) 0.8 10^3/uL (0.0-1.0); NEUTROPHILS # (AUTO) 10.8 10^3/uL (1.5-6.6); NEUTROPHILS % (AUTO) 85.8 %; PLT - PLATELET COUNT 205 10^3/uL (130-450); RED BLOOD COUNT 3.72 10^6/uL (4.20-5.40); RED CELL DISTRIBUTION WIDTH 13.2 % (12.0-15.0); WHITE BLOOD COUNT 12.6 x10^3/uL (4.8-10.8)
[2021-05-29 13:53] LABS: CALCIUM 9.2 mg/dL (8.5-10.3); POTASSIUM 3.9 mmol/L (3.5-5.0)
[2021-05-29 13:56] LABS: CREATININE 1.3 mg/dL (0.4-1.0)
[2021-05-29 13:58] LABS: ALBUMIN 3.5 g/dL (3.2-5.5); BILIRUBIN,TOTAL 0.8 mg/dL (0.2-1.0)
[2021-05-29 14:43] VITALS: BP 128/66
== END 2021-05-29 15:55 | disposition home or self-care (01) ==
LOC: ED 12:07
DX: K52.9 Noninfective gastroenteritis and colitis, unspecified (principal); I10 Essential (primary) hypertension; E11.9 Type 2 diabetes mellitus without complications; Z79.4 Long term (current) use of insulin; I48.91 Unspecified atrial fibrillation; Z79.01 Long term (current) use of anticoagulants; Z79.82 Long term (current) use of aspirin; Z87.891 Personal history of nicotine dependence
CPT/HCPCS: 36415; 80053; 83690; 85025; 96361; 96374; 99283; A9270

== ENCOUNTER 2021-10-04 10:36 | Outpatient (CLI) | payer MEDICARE, OTHER ==
--- NOTE | 2021-10-04 17:27 | XRAY Report ---
PROCEDURE: Chest 2 View X-Ray INDICATIONS: DYSPNEA TECHNIQUE: 2 view(s) of the chest. COMPARISON: . FINDINGS: Surgical changes and devices: Left chest wall cardiac pacer is stable. Lungs and pleura: No pleural effusions or pneumothorax. Lungs are clear. Lungs hyperinflated testin g COPD. Mediastinum: Mediastinal contours are normal. Heart size is normal. Bones and chest wall: No suspicious bony abnormalities. Soft tissues appear unremarkable. IMPRESSION: No acute cardiopulmonary disease process. Reviewed by: Chelsy Lewsi MD, PhD on 10/04/2021 5:25 PM PST Approved by: Chelsy Lewis MD, PhD on 10/04/2021 5:25 PM PST Station ID: [id number]
== END 2021-10-04 10:37 | disposition home or self-care (01) ==
LOC: DI.S 10:36
PROVIDERS: ATTEND Nurse Practitioner Family
DX: R06.00 Dyspnea, unspecified (principal)

== ENCOUNTER 2021-11-13 08:08 | Outpatient (CLI) | payer MEDICARE, OTHER ==
[2021-11-13 15:25] LABS: BASOPHILS # (AUTO) 0.1 10^3/uL (0.0-0.1); BASOPHILS % (AUTO) 0.7 %; EOSINOPHILS # (AUTO) 0.2 10^3/uL (0.0-0.7); EOSINOPHILS % (AUTO) 2.2 %; HGB - HEMOGLOBIN 11.5 g/dL (12.0-16.0); LYMPHOCYTES # (AUTO) 1.5 10^3/uL (1.5-3.5); LYMPHOCYTES % (AUTO) 18.6 %; MEAN CORPUSCULAR HGB CONC 31.9 g/dL (32.0-36.0); MEAN PLATELET VOLUME 11.1 fL (7.9-10.8); MONOCYTES # (AUTO) 0.7 10^3/uL (0.0-1.0); MONOCYTES % (AUTO) 8.8 %; NEUTROPHILS # (AUTO) 5.6 10^3/uL (1.5-6.6); NEUTROPHILS % (AUTO) 69.6 %; PLT - PLATELET COUNT 246 10^3/uL (130-450); RED BLOOD COUNT 3.71 10^6/uL (4.20-5.40); RED CELL DISTRIBUTION WIDTH 14.5 % (12.0-15.0); WHITE BLOOD COUNT 8.1 x10^3/uL (4.8-10.8)
[2021-11-13 16:05] LABS: ALBUMIN 3.6 g/dL (3.2-5.5); ALKALINE PHOSPHATASE 48 IU/L (42-121); ALT ALANINE AMINOTRANSFERASE 19 IU/L (10-60); AST ASPARTATE AMINOTRANSFERASE 21 IU/L (10-42); BILIRUBIN,TOTAL 0.6 mg/dL (0.2-1.0); BUN - BLOOD UREA NITROGEN 17 mg/dL (6-20); CARBON DIOXIDE - CO2 25 mmol/L (21-32); CHLORIDE 102 mmol/L (101-111); CHOL/HDL RATIO 2.5 (<4.4); CHOLESTEROL 141 mg/dL; GFR - MDRD 54 (>89); GLUCOSE 174 mg/dL (70-100); HDL CHOLESTEROL 56 mg/dL; LDL CHOLESTEROL,CALCULATED 63 mg/dL; LDL/HDL RATIO 1.1 (<4.4); SODIUM 137 mmol/L (135-145); TOTAL PROTEIN 7.3 g/dL (6.7-8.2); TRIGLYCERIDES 109 mg/dL; VLDL CHOLESTEROL 22 mg/dL
[2021-11-13 16:40] LABS: THYROID STIMULATING HORMONE 1.8 uIU/mL (0.34-5.60)
[2021-11-13 16:42] LABS: FREE T4 (FREE THYROXINE) 1.1 ng/dL (0.58-1.64)
[2021-11-13 20:53] LABS: ESTIMATED AVERAGE GLUCOSE 174 mg/dL (70-100); HEMOGLOBIN A1c% 7.7 % (4.27-6.07)
== END 2021-11-13 08:09 | disposition home or self-care (01) ==
LOC: LAB.S 08:08
PROVIDERS: ATTEND Nurse Practitioner Family
DX: E78.5 Hyperlipidemia, unspecified (principal); E11.9 Type 2 diabetes mellitus without complications; I10 Essential (primary) hypertension
CPT/HCPCS: 36415; 80053; 80061; 83036; 83721; 84439; 84443; 85025

== ENCOUNTER 2022-04-07 20:31 | Outpatient (CLI) | payer MEDICARE, OTHER | END 2022-04-07 20:32 | disposition critical access hospital (66) | LOC: EMS 20:31 | DX: R41.0 Disorientation, unspecified (principal); R50.9 Fever, unspecified | CPT/HCPCS: A0425; A0427 ==

== ENCOUNTER 2022-04-21 07:53 | Outpatient (CLI) | payer MEDICARE, OTHER | END 2022-04-21 07:54 | disposition home or self-care (01) | LOC: LAB.S 07:53 | PROVIDERS: ATTEND Internal Medicine | DX: I48.0 Paroxysmal atrial fibrillation (principal) | CPT/HCPCS: 36416; 85610 ==

== ENCOUNTER 2022-05-29 11:26 | Outpatient (CLI) | payer MEDICARE, OTHER | END 2022-05-29 11:27 | disposition home or self-care (01) | LOC: LAB.S 11:26 | PROVIDERS: ATTEND Internal Medicine | DX: I48.0 Paroxysmal atrial fibrillation (principal) | CPT/HCPCS: 36416; 85610 ==

== ENCOUNTER 2022-06-12 13:36 | Outpatient (CLI) | payer MEDICARE, OTHER | END 2022-06-12 13:37 | disposition home or self-care (01) | LOC: LAB.S 13:36 | PROVIDERS: ATTEND Internal Medicine | DX: I48.0 Paroxysmal atrial fibrillation (principal) | CPT/HCPCS: 36415; 36416; 85610 ==

== ENCOUNTER 2022-06-13 10:47 | Outpatient (CLI) | payer MEDICARE, OTHER | END 2022-06-13 10:48 | disposition home or self-care (01) | LOC: LAB.S 10:47 | PROVIDERS: ATTEND Internal Medicine | DX: Z53.9 Procedure and treatment not carried out, unspecified reason (principal) | CPT/HCPCS: 36415; 36416; 85610 ==

== ENCOUNTER 2022-06-19 09:30 | Outpatient (CLI) | payer MEDICARE, OTHER | END 2022-06-19 09:31 | disposition home or self-care (01) | LOC: LAB.S 09:30 | PROVIDERS: ATTEND Internal Medicine | DX: I48.0 Paroxysmal atrial fibrillation (principal) | CPT/HCPCS: 36416; 85610 ==

== ENCOUNTER 2022-07-24 11:55 | Outpatient (CLI) | payer MEDICARE, OTHER | END 2022-07-24 11:56 | disposition home or self-care (01) | LOC: LAB.S 11:55 | PROVIDERS: ATTEND Internal Medicine | DX: I48.0 Paroxysmal atrial fibrillation (principal) | CPT/HCPCS: 36416; 85610 ==

== ENCOUNTER 2022-07-31 11:16 | Emergency (ER) | payer MEDICARE, OTHER ==
--- NOTE | 2022-07-31 12:48 | ED Physician Documentation ---
History of Present Illness - Stated complaint Stated Complaint: R LEG PX - Chief complaint Chief Complaint: Ext Problem - History obtained from History obtained from: Patient - Additonal information Additional information: Patient is a 76-year-old female with a history of atrial fibrillation on Coumadin presenting for evaluation of right leg pain since Thursday. Patient denies any trauma or known injury. She reports feeling a lump in the right groin area that is tender. She does have a history of cellulitis but denies noticing any new redness or rashes. She also reports having a distended veins in her leg and called her hide dropper office today and they directed her to the ER for evaluation for possible DVT. She has been compliant with her Coumadin.She denies fever, chest pain, difficulty breathing. Review of Systems Constitutional: denies: Fever Nose: denies: Congestion Cardiac: denies: Chest pain / pressure Respiratory: denies: Dyspnea GI: denies: Abdominal Pain Musculoskeletal: reports: Extremity pain Neurologic: denies: Headache PD PAST MEDICAL HISTORY - Past Medical History Cardiovascular: Hypertension, High cholesterol, Coronary artery disease, Atrial fibrillation, Murmur, Valve disorder Respiratory: None Endocrine/Autoimmune: Type 2 diabetes GI: GERD, Chronic diarrhea [employer]: None : Renal insuffiency HEENT: None Psych: None Musculoskeletal: Osteoarthritis, Osteoporosis, Osteopenia, Other Derm: Eczema, Psoriasis - Past Surgical History Past Surgical History: Yes General: Cholecystectomy, Appendectomy Cardiovascular: CABG, Coronary stent, Pacemaker HEENT: Cataracts - Present Medications Home Medications: Ambulatory Orders Medication Instructions Recorded Confirmed Furosemide 40 mg PO BID 11/18/17 04/25/21 Insulin Glargine [Lantus Solostar] 18 unit SUBQ BID 11/18/17 04/25/21 Labetalol HCl 200 mg PO DAILY 11/18/17 04/25/21 Insulin Aspart [NovoLOG] 0 - 11 units SQ QID 03/10/19 04/25/21 Losartan Potassium 25 mg PO QPM 03/10/19 04/25/21 Omeprazole 20 mg PO DAILY 03/10/19 04/25/21 Oxybutynin Chloride 5 mg PO BID 03/10/19 04/25/21 Alendronate [Fosamax] 70 mg PO Q7D 04/25/21 04/25/21 Labetalol HCl 100 mg PO QPM 04/25/21 04/25/21 Warfarin [Coumadin] 2.5 mg PO SUTUTHSA 04/25/21 04/25/21 Warfarin [Coumadin] 5 mg PO MOWEFR 04/25/21 04/25/21 Aspirin EC [Ecotrin] 81 mg PO DAILY tablet 05/01/21 Magnesium Oxide [Mag Ox] 400 mg PO DAILYWM #7 tablet 05/01/21 Potassium Chloride [K-Dur] 20 meq PO DAILY #7 tablet 05/01/21 Saccharomyces Boulardii [Florastor] 250 mg PO BID #18 cap 05/01/21 cefTRIAXone [Rocephin 2 gram] 2 gm IV DAILY #9 vial 05/01/21 Loperamide [Imodium] 2 mg PO QID PRN #10 cap 05/29/21 Ondansetron Odt [Zofran] 4 mg TL Q6H PRN #10 tablet 05/29/21 - Allergies Allergies/Adverse Reactions: Allergies Allergy/AdvReac Type Severity Reaction Status Date / Time amoxicillin Allergy Unknown Verified 07/31/22 11:32 atropine [From Lomotil] Allergy Unknown Verified 07/31/22 11:32 Cephalosporins Allergy Unknown Verified 07/31/22 11:32 diphenoxylate [From Lomotil] Allergy Unknown Verified 07/31/22 11:32 iodine Allergy Unknown Verified 07/31/22 11:32 Latex, Natural Rubber Allergy Unknown Verified 07/31/22 11:32 nickel Allergy Rash Verified 07/31/22 11:32 Penicillins Allergy Hives Verified 07/31/22 11:32 Tetanus Vaccines and Toxoid Allergy Unknown Verified 07/31/22 11:32 metformin AdvReac Unknown Verified 07/31/22 11:32 minocycline AdvReac Unknown Verified 07/31/22 11:32 oxycodone AdvReac Unknown Verified 07/31/22 11:32 Ritfbyr-RMV-OnH Reductase AdvReac Unknown Verified 07/31/22 11:32 Inhibitor [Qaxcyvk-Fvy-Nks Reductase Inhibitor] - Social History Does the pt smoke?: No Smoking Status: Former smoker Does the pt drink ETOH?: Yes Does the pt have substance abuse?: No - Immunizations Immunizations are current?: Yes - POLST Patient has POLST: No PD ED PE NORMAL - General General: Alert and oriented X 3, No acute distress, Well developed/nourished - HEENT HEENT: Atraumatic, Moist mucous membranes - Neck Neck: Supple, no meningeal sign - Cardiac Cardiac: RRR - Respiratory Respiratory: No respiratory distress, Clear bilaterally - Abdomen Abdomen: Soft, Non tender - Extremities Extremities: No calf tenderness / cord, Other (Small palpable lump to proximal right upper thigh with no overlying erythema; Varicose veins to extremity, no cellulitis, extremities are warm and well-perfused; Mild tenderness to lateral right knee) Results - Vitals Vitals: Vital Signs - 24 hr 07/31/22 07/31/22 11:25 12:27 Temperature 35.6 C L Heart Rate 97 88 Respiratory 18 18 Rate Blood Pressure 153/97 H 163/98 H O2 Saturation 96 97 Oxygen O2 Source Room air - Labs Labs: Laboratory Tests 07/31/22 07/31/22 07/31/22 12:49 12:49 12:49 WBC 8.2 RBC 4.09 L Hgb 11.7 L Hct 36.8 L MCV 90.0 MCH 28.6 MCHC 31.8 L RDW 13.5 Plt Count 234 MPV 10.3 Neut # (Auto) 5.7 Lymph # (Auto) 1.4 L Fleming # (Auto) 0.9 Eos # (Auto) 0.1 Baso # (Auto) 0.1 Absolute Nucleated RBC 0.00 Nucleated RBC % 0.0 PT 37.2 H INR 3.6 H Sodium 135 Potassium 3.6 Chloride 100 L Carbon Dioxide 24 Anion Gap 11.0 BUN 21 H Creatinine 1.0 Estimated GFR (MDRD) 54 L Glucose 128 H Calcium 9.3 Total Bilirubin 0.8 AST 22 ALT 23 Alkaline Phosphatase 56 Total Protein 7.3 Albumin 3.6 Globulin 3.7 Albumin/Globulin Ratio 1.0 PD MEDICAL DECISION MAKING - ED course Complexity details: reviewed results, re-evaluated patient ED course: Patient is presenting for evaluation of right leg pain. She has a small palp able lump to the right upper thigh. Ultrasound is negative for DVT but does suggest a small lipoma. I do not see signs of cellulitis. Her extremities are warm and well-perfused. Her INR is therapeutic.Her knee x-rays negative for fracture but does show osteoarthritis. Patient is able to ambulate with her walker quite easily. Patient counseled on need for close follow-up with her primary care doctor as well as concerning symptoms to return for. Departure - Departure Disposition: 01 Home, Self Care Clinical Impression: Right leg pain Lipoma Qualifiers: Lipoma location: lower extremity Laterality: right Qualified Code(s): D17.23 - Benign lipomatous neoplasm of skin and subcutaneous tissue of right leg Condition: Stable Instructions: ED Lipoma Comments: Your ultrasound does not show signs of a blood clot in your leg but you do have a small lipoma. If this continues to bother you you can consider having it removed by a general surgeon.Your INR level is 3.6 which is just slightly above your therapeutic goal. I would recommend close follow-up with your primary care doctor for recheck to make sure you are Staying within your goal in the next week.Your knee x-ray does show signs of arthritis. I would recommend close follow-up with your primary care doctor regarding your symptoms.I do not see signs of cellulitis at this time or an infection. If you have any new or worsening symptoms please consider return to the ER. IMPRESSION: 1. No DVT in the right lower extremity. 2. Probably 2.1 x 1.0 x 2.9 cm lipoma in the proximal anterior thigh.
[2022-07-31 12:53] LABS: BASOPHILS # (AUTO) 0.1 10^3/uL (0.0-0.1); BASOPHILS % (AUTO) 0.6 %; EOSINOPHILS # (AUTO) 0.1 10^3/uL (0.0-0.7); EOSINOPHILS % (AUTO) 0.9 %; HCT - HEMATOCRIT 36.8 % (37.0-47.0); HGB - HEMOGLOBIN 11.7 g/dL (12.0-16.0); LYMPHOCYTES # (AUTO) 1.4 10^3/uL (1.5-3.5); LYMPHOCYTES % (AUTO) 17.5 %; MEAN CORPUSCULAR HEMOGLOBIN 28.6 pg (27.0-31.0); MEAN CORPUSCULAR HGB CONC 31.8 g/dL (32.0-36.0); MEAN PLATELET VOLUME 10.3 fL (7.9-10.8); MONOCYTES # (AUTO) 0.9 10^3/uL (0.0-1.0); MONOCYTES % (AUTO) 11.2 %; NEUTROPHILS # (AUTO) 5.7 10^3/uL (1.5-6.6); NEUTROPHILS % (AUTO) 69.6 %; PLT - PLATELET COUNT 234 10^3/uL (130-450); RED BLOOD COUNT 4.09 10^6/uL (4.20-5.40); RED CELL DISTRIBUTION WIDTH 13.5 % (12.0-15.0); WHITE BLOOD COUNT 8.2 x10^3/uL (4.8-10.8)
--- NOTE | 2022-07-31 12:53 | XRAY Report ---
PROCEDURE: Knee 3 View RT INDICATIONS: pain TECHNIQUE: 3 views of the right knee(s) were acquired. COMPARISON: None. FINDINGS: Bones: No fractures or dislocations. No suspicious bony lesions. There is mild tricompartmental osteoarthritic degenerative change. Soft tissues: No joint effusion. No suspicious soft tissue calcifications. IMPRESSION: 1. No evidence for acute osseous abnormality involving the patient's right knee. 2. Mild tricompartmental osteoarthritic type degenerative change Reviewed by: Nehemiah Hamilton MD on 07/31/2022 12:52 PM PST Approved by: Nehemiah Hamilton MD on 07/31/2022 12:52 PM PST Station ID: [id number]
[2022-07-31 13:01] LABS: INR 3.6 (0.8-1.2); PT - PROTHROMBIN TIME 37.2 secs (9.9-12.6)
[2022-07-31 13:11] LABS: ALBUMIN 3.6 g/dL (3.2-5.5); BILIRUBIN,TOTAL 0.8 mg/dL (0.2-1.0); CALCIUM 9.3 mg/dL (8.5-10.3); POTASSIUM 3.6 mmol/L (3.5-5.0); TOTAL PROTEIN 7.3 g/dL (6.7-8.2)
--- NOTE | 2022-07-31 13:55 | Ultrasound Report ---
PROCEDURE: Duplex Ext Veins Right INDICATIONS: swelling/pain TECHNIQUE: Real-time imaging, as well as color and pulse Doppler interrogation, were performed of the lower extr emity deep veins from the inguinal ligament to the popliteal fossa. COMPARISON: Duplex venous ultrasound lower extremities, 03/20/2011. FINDINGS: The deep veins are normally compressible, and free of intraluminal thrombus. Color and pu lse Doppler demonstrate normal phasic intraluminal flow. There is normal augmentation response to di stal compression maneuver. There is a 2.1 x 1.0 x 2.9 cm hypoechoic oval-shaped mass in the subcutaneous fat of the maximal ante rior thigh, most likely a lipoma. IMPRESSION: 1. No DVT in the right lower extremity. 2. Probably 2.1 x 1.0 x 2.9 cm lipoma in the proximal anterior thigh. Reviewed by: Tj Vaughn MD on 07/31/2022 1:53 PM PST Approved by: Tj Vaughn MD on 07/31/2022 1:53 PM PST Station ID: [id number]
[2022-07-31] MEDS ORDERED: LIDOCAINE PATCH 5% TOP STA (13:59)
[2022-07-31 14:35] VITALS: BP 165/88
== END 2022-07-31 14:35 | disposition home or self-care (01) ==
LOC: ED 11:16
DX: D17.23 Benign lipomatous neoplasm of skin and subcutaneous tissue of right leg (principal); I48.91 Unspecified atrial fibrillation; Z79.01 Long term (current) use of anticoagulants; I10 Essential (primary) hypertension; E11.9 Type 2 diabetes mellitus without complications; Z79.4 Long term (current) use of insulin; Z87.891 Personal history of nicotine dependence
CPT/HCPCS: 36415; 73562; 80053; 85025; 85610; 93971; 99282; 99284; A9270

== ENCOUNTER 2022-09-08 09:46 | Outpatient (CLI) | payer MEDICARE, OTHER | END 2022-09-08 09:47 | disposition home or self-care (01) | LOC: LAB.S 09:46 | PROVIDERS: ATTEND Internal Medicine | DX: I48.0 Paroxysmal atrial fibrillation (principal) | CPT/HCPCS: 36416; 85610 ==

== ENCOUNTER 2022-09-17 10:05 | Outpatient (CLI) | payer MEDICARE, OTHER | END 2022-09-17 10:06 | disposition home or self-care (01) | LOC: LAB.S 10:05 | PROVIDERS: ATTEND Internal Medicine | DX: I48.0 Paroxysmal atrial fibrillation (principal) | CPT/HCPCS: 36416; 85610 ==

== ENCOUNTER 2022-10-01 09:22 | Outpatient (CLI) | payer MEDICARE, OTHER | END 2022-10-01 09:23 | disposition home or self-care (01) | LOC: LAB.S 09:22 | PROVIDERS: ATTEND Internal Medicine | DX: I48.0 Paroxysmal atrial fibrillation (principal) | CPT/HCPCS: 36416; 85610 ==

== ENCOUNTER 2022-11-01 05:57 | Outpatient (CLI) | payer MEDICARE, OTHER | END 2022-11-01 23:59 | disposition E | LOC: EMS 05:57 ==